=== PATIENT | male | born 1960 | race Caucasian/White ===

== ENCOUNTER 2017-01-27 11:17 | Inpatient (IN) ==
--- NOTE | 2017-01-27 12:31 | Emergency Department Note ---
Disposition Clinical Impression: Cellulitis in diabetic foot Disposition: Admitted As Inpatient Condition: Fair Referrals: NO,PCP [Non-Partnered Physician] - Forms: ED Satisfaction Letter Time of Disposition: 13:37 Lower Extremity Injury HPI - General Chief Complaint: ED Extremity Injury, Lower Stated Complaint: LLE "Infection" From Wound Care Time Seen by Provider: 01/27/17 12:17 Source: patient Limitations: no limitations Nursing Notes Reviewed: Yes Vital Signs Reviewed: Yes - History of Present Illness HPI Narrative: 56-year-old who is status post transmetatarsal amputation remotely who developed increasing redness and drainage from the foot patient is actually scheduled for surgery on Thursday. Saw the surgeon for preop testing today and he felt he should be admitted for IV antibiotics. Injury location: Left foot (Increasing redness and drainage) Onset (ago): day(s) Context: other (Status post amputation of the foot) Pain Severity: moderate Improves with: nothing Worsens with: movement Associated symptoms: Reports: able to partially bear weight - Related Data Home Medications Medication Instructions Recorded Confirmed Aspirin [Lo-Dose Aspirin EC] 81 mg PO QDPC 10/02/16 01/27/17 Gabapentin [Neurontin] 800 mg PO BID 10/02/16 01/27/17 Metformin HCl [Glucophage] 1,000 mg PO BID 10/02/16 01/27/17 Multivitamin [Multivitamins] 1 tab PO DAILY 12/24/16 01/27/17 Morphine Sulfate ER (24 HR) 30 mg PO DAILY 01/27/17 01/27/17 [Morphine Sulfate ER Caps] Oxycodone HCl 10 mg PO QID PRN 01/27/17 01/27/17 Allergies Allergy/AdvReac Type Severity Reaction Status Date / Time No Known Allergies Allergy Verified 01/27/17 11:21 All systems ED: reviewed and negative except as stated. Constitutional: Denies: fever, chills, weakness, weight change Eyes: Denies: eye pain, eye discharge, vision change ENT ED: Denies: ear pain, throat pain, dental pain, hearing loss, epistaxis, congestion, dysphagia Cardiovascular: Denies: chest pain, palpitations, dyspnea on exertion, edema, syncope Respiratory: Denies: cough, dyspnea, wheezes, hemoptysis, stridor Gastrointestinal: Denies: abdominal pain, nausea, vomiting, diarrhea, constipation, hematemesis, melena, hematochezia Genitourinary: Denies: urgency, dysuria, frequency, hematuria Musculoskeletal: Reports: arthralgia. Denies: back pain, neck pain, myalgia Integumentary: Denies: rash, abrasion, lesions Neurological: Denies: headache, weakness, numbness, paresthesias, confusion, abnormal gait, vertigo Psychiatric: Denies: anxiety, depression, suicidal thoughts, homicidal thoughts , auditory hallucinations, visual hallucinations Endocrine: Denies: fatigue Hematological/Lymphatic: Denies: easy bleeding, easy bruising Allergic/Immunologic: Denies: facial swelling, urticaria Past Medical History - Past Medical History Medical history: Reports: diabetes, hyperlipidemia, hypertension Surgical history: Reports: orthopedic, other Psychiatric history: Reports: no psych history - Social History Smoking Status: Current every day smoker Smokeless Tobacco Status: No Alcohol use: Reports: none Drug use: Reports: none Physical Exam - General Limitations: no limitations General appearance: alert - Head Head exam: atraumatic, normocephalic, normal inspection - Eye Eye exam: Present: normal appearance, PERRL, EOMI - ENT ENT exam: normal exam, normal oropharynx, mucous membranes moist - Neck Neck exam: Present: normal inspection, full ROM, trachea midline - Chest Chest inspection: Present: normal inspection, symmetric chest wall rise - Respiratory Respiratory exam: Present: normal lung sounds bilaterally - Abdominal Exam Abdominal exam: Present: soft, Non-Tender. Absent: tenderness, distention, guarding, rebound, rigidity - Expanded Lower Extremity Exam Foot/toe exam: Present: tenderness, swelling (Transmetatarsal amputation), erythema, other Neurovascular/Tendon exam: Absent: pulse deficit Gait: not tested/not observed - Back Exam Back exam: Present: normal inspection, full ROM. Absent: tenderness - Neurological Exam Neurological exam: Present: alert, oriented X3 - Psychiatric Psychiatric exam: Present: normal affect, normal mood - Skin Skin exam: Present: warm, dry, intact, normal color Course - Reevaluation(s) Reevaluation #1: 56-year-old with a previous transmetatarsal amputation comes in complaining of increasing foot pain and swelling with redness. Patient was seen by podiatry who felt he should be admitted for IV antibiotics and surgical debridement. Time: 14:31 - Consultations Consultation #1: Discussed with Dr. Tejada, admit to the hospitalist. Time: 13:58 Consultation #2: Discussed with , admit Time: 14:31 Vital Signs Temperature 98.3 F 01/27/17 11:21 Pulse Rate 110 01/27/17 11:21 Respiratory Rate 20 01/27/17 11:21 Blood Pressure 191/94 01/27/17 11:21 O2 Sat by Pulse Oximetry 95 01/27/17 11:21 Temperature 98.3 F 01/27/17 11:21 Pulse Rate 94 01/27/17 13:22 Respiratory Rate 16 01/27/17 13:22 Blood Pressure 133/85 01/27/17 13:22 O2 Sat by Pulse Oximetry 94 01/27/17 13:22 Oxygen Delivery Oxygen Delivery Room Air Extremity Injury, Lower - Lab Data Lab results reviewed: Yes I reviewed the patient's lab results. Result diagrams: 01/27/17 12:36 01/27/17 12:36 Lab Results 01/27/17 01/27/17 01/27/17 Range/Units 12:36 12:36 12:36 WBC 15.5 H (4.3-11.1) K/mcL RBC 4.10 L (4.19-5.50) M/mcL Hgb 12.8 L (12.9-16.9) g/dL Hct 37.5 (37.5-50.1) % MCV 91.5 (83.0-100.0) fL MCH 31.2 (28.0-33.3) pg MCHC 34.1 (31.6-35.5) g/dL RDW 12.9 (11.5-14.5) % Plt Count 166 (140-400) K/mcL MPV 9.8 (9.4-12.4) fL Immature Gran % 1.0 (0-4) % Seg Neutrophils % 85.0 % Lymphocytes % 5.5 % Monocytes % 7.4 % Eosinophils % 0.6 % Basophils % 0.5 % Neutrophils # 13.2 H (1.6-8.9) K/mcL Lymphocytes # 0.9 (0.6-4.6) K/mcL Monocytes # 1.2 (0.0-1.3) K/mcL Eosinophils # 0.1 (0.0-0.6) K/mcL Basophils # 0.1 (0.0-0.2) K/mcL ESR 100 H (0-10) mm/hr Sodium 127 L (136-145) mEq/L Potassium 4.6 H (3.5-4.5) mEq/L Chloride 98 (98-109) mEq/L Carbon Dioxide 20 (19-29) mEq/L BUN 19 (8-26) mg/dL Creatinine 1.28 H (0.72-1.25) mg/dL Est GFR ( Amer) > 60 (> 60) Est GFR (Non-Af Amer) 58 L (> 60) BUN/Creatinine Ratio 15 (6-26) Glucose 315 H (70-99) mg/dL Calculated Osmolality 278 L (280-300) Calcium 9.6 (8.6-10.8) mg/dL - Radiology Data Radiology results reviewed: Yes I reviewed the patient's radiology results. Foot X-Ray 01/27/17 12:28 IMPRESSION: Soft tissue swelling at the stump site may represent cellulitis. No underlying skeletal change to suggest osteomyelitis. D/ / Tripp Mcdonald MD / Tripp Mcdonald MD Interpreting Provider: Tripp Mcdonald MD
[2017-01-27 13:21] LABS: Basophils # 0.1 K/mcL (0.0-0.2); Basophils % 0.5 %; Eosinophils # 0.1 K/mcL (0.0-0.6); Eosinophils % 0.6 %; Hematocrit 37.5 % (37.5-50.1); Hemoglobin 12.8 g/dL (12.9-16.9); Lymphocytes # 0.9 K/mcL (0.6-4.6); Lymphocytes % 5.5 %; Mean Corpuscular HGB Conc 34.1 g/dL (31.6-35.5); Mean Corpuscular Hemoglobin 31.2 pg (28.0-33.3); Mean Corpuscular Volume 91.5 fL (83.0-100.0); Mean Platelet Volume 9.8 fL (9.4-12.4); Monocytes # 1.2 K/mcL (0.0-1.3); Monocytes % 7.4 %; Neutrophils # 13.2 K/mcL (1.6-8.9); Platelet Count 166 K/mcL (140-400); Red Cell Distribution Width 12.9 % (11.5-14.5)
[2017-01-27 13:25] LABS: BUN/Creatinine Ratio 15 (6-26); Blood Urea Nitrogen 19 mg/dL (8-26); Calcium 9.6 mg/dL (8.6-10.8); Carbon Dioxide 20 mEq/L (19-29); Chloride 98 mEq/L (98-109); Glucose 315 mg/dL (70-99); Osmolality,Calculated 278 (280-300); Potassium 4.6 mEq/L (3.5-4.5); Sodium 127 mEq/L (136-145); eGFR For African Americans > 60 (> 60); eGFR For Non-African Americans 58 (> 60)
[2017-01-27] MEDS ORDERED: Vancomycin 1,000 MG in D5% in Water 250 ML IVPB ONE (13:35)
[2017-01-27] MEDS ORDERED: Piperacillin/Tazobactam 3.375 GM in D5% in Water (Mini-Bag+) 100 ML IVPB ONE (14:30)
[2017-01-27] MEDS ORDERED: *HR* Morphine 2 MG/ML SYRINGE IVP PRN (15:29)
[2017-01-27] MEDS ORDERED: Acetaminophen 325 MG TABLET PO PRN (15:29)
[2017-01-27] MEDS ORDERED: Naloxone 0.4 MG/ML INJ IVP PRN (15:29)
[2017-01-27] MEDS ORDERED: Ondansetron ODT 4 MG TAB.RAPDIS SL PRN (15:29)
[2017-01-27] MEDS ORDERED: *HR* Dextrose 50 % in Water (Syg) 50 ML SYRINGE IVP PRN (15:55)
[2017-01-27] MEDS ORDERED: Dextrose Gel 15 GM PO PRN ×2 (15:55)
[2017-01-27] MEDS ORDERED: D5% in Water 1,000 ML IVC PRN (15:55)
[2017-01-27] MEDS: 0.9 % Sodium Chloride 1,000 ML IVC SCH (16:03)
[2017-01-27] MEDS: *HR* Heparin 5,000 UNIT/ML VIAL SQ SCH (16:03)
--- NOTE | 2017-01-27 16:09 | Internal Med History&Physical ---
Date of Encounter: 01/28/17 Time of Encounter: 16:04 Assessment and Plan (1) Sepsis Current visit: Yes Status: Acute Patient has cellulitis of the left lower extremity with diabetic foot ulcer, elevated white blood cell count of 15.5, mild tachycardia with heart rate in the 90s, meeting sepsis criteria. Blood cultures, and wound culture sent Broad-spectrum antibiotics initiated with vancomycin and Zosyn We will start IV fluids with 0.9 normal saline at 100 mL per hour Lactic acid ordered. Qualifiers: Sepsis type: sepsis due to unspecified organism Qualified Code(s): A41.9 - Sepsis, unspecified organism (2) Diabetic foot ulcer Current visit: Yes Status: Acute Patient with Cellulitis and unstageable ulcer of left foot stump with surrounding swelling, erythema and duskiness. Dr. Tejada consulted and plans to take patient to OR tomorrow for debridement. Wound cultures sent. Vancomycin and zosyn IVPB NPO after midnight for planned procedure. Qualifiers: Diabetic foot ulcer location: midfoot Diabetes mellitus type: type 2 Laterality: left Non-pressure ulcer stage: unspecified non-pressure ulcer stage Qualified Code(s): E11.621 - Type 2 diabetes mellitus with foot ulcer; L97.429 - Non-pressure chronic ulcer of left heel and midfoot with unspecified severity (3) Type 2 diabetes mellitus Current visit: Yes Status: Acute check Hgb A1c diabetic diet, NPO after midnight Hold home dose of metformin Sliding scale correction dose ACHS and Q6 hours when NPO after midnight for surgery hypoglycemic protocol. Qualifiers: Diabetes mellitus complication status: with skin complications Diabetes mellitus complication detail: with foot ulcer Diabetes mellitus termite control representative insulin use: without termite control representative use Qualified Code(s): E11.621 - Type 2 diabetes mellitus with foot ulcer; L97.509 - Non-pressure chronic ulcer of other part of unspecified foot with unspecified severity (4) Hypertension Current visit: Yes Status: Acute Patient reports he stopped taking his blood pressure medication 3 months ago, and his blood pressure has remained stable, and his PCP is aware of hime stopping his medication. Blood pressure has been controlled since arrival. Hydralazine 10mg IVP Q6hr PRN for SBP > 160 or DBP > 100 Qualifiers: Hypertension type: essential hypertension Qualified Code(s): I10 - Essential (primary) hypertension (5) Smoker Current visit: Yes Status: Acute Discussed smoking cessation. Patient is trying to quit and has cut down to 1/2 PPD. Offered encouragement. SMoking cessation education and nicotine patch ordered. (6) MONIKA (acute kidney injury) Current visit: Yes Status: Acute Creatinine of 1.28 up from baseline normal value. Patient denies any history of CKD. May be related to poor oral intake and nausea since Thursday. Urinalysis Hydrate with 0.9NS at 100mL/hr recheck chemistry with morning labs. (7) DVT prophylaxis Current visit: Yes Status: Acute Sequential compression devices Heparin 5,000u TID (hold evening and morning dose prior to surgery. Internal Medicine - H&P: HPI Chief complaint: foot wound Admitted From: Emergency Dept Plans for Post Hospital Care: Home History of present illness: Mr. Duran is a 56 year old male with hypertension, hyperlipidemia, and type 2 diabetes who is status post remote transmetatarsal amputation of the left foot presented to the emergency department today from the wound care clinic with reports of worsening swelling, pain, redness, and drainage from the wound on his left foot stump. Patient reported that he was scheduled for surgery later this week on with Dr. Oconnell wrapped on Thursday night. He reports his wrapped his foot on Thursday night, and prior to that his foot looks normal , he will commit overnight on Thursday with pain and had his rewrap the foot. On Thursday he reports he started having poor appetite, nausea, subjective fever and chills. When he presented to the wound care clinic today and they unwrapped his foot he reports it was much more swollen, and red than previously. Patient denies any headache, lightheadedness, chest pain, shortness of breath, palpitations. Evaluation in the emergency department revealed elevated white blood cell count of 15.5, elevated ESR of 100, hyponatremia with sodium of 127, creatinine was elevated at 1.28, blood sugar is also elevated at 3:15. Foot x-ray showed soft tissue swelling at some sight which may represent cellulitis, no underlying skeletal changes to suggest osteomyelitis. Blood cultures and wound cultures were sent. Dr. Tejada was consulted and plans to take the patient to the OR tomorrow. On exam, patient alert and oriented, in no acute distress. Heart has regular rate and rhythm, lungs are clear bilaterally to auscultation. Left lower extremity is status post transmetatarsal amputation, with lesser at the lateral plantar aspect measuring approximately 3 cm in diameter with surrounding erythema, and duskiness to the lateral dorsal aspect. The wound is draining serosanguineous and purulent material. Past Med Surg Social Fam HX - Past Medical History Medical history: diabetes, hyperlipidemia, hypertension Psychiatric history: no psych history - Past Surgical History Surgical History: orthopedic, other - Social History Smoking Status: Current every day smoker Packs per day: 0.5 Smokeless Tobacco Status: No Alcohol use: none Drug use: none - Family History Mother Living Status: Hx Family Cardiac Disorders: Yes Hx Family Endocrine Disorder: Yes Internal Medicine - H&P: Meds Aspirin [Lo-Dose Aspirin EC] 81 mg PO QDPC 10/02/16 [History] Gabapentin [Neurontin] 800 mg PO BID 10/02/16 [History] Metformin HCl [Glucophage] 1,000 mg PO BID 10/02/16 [History] Multivitamin [Multivitamins] 1 tab PO DAILY 12/24/16 [History] Morphine Sulfate ER (24 HR) [Morphine Sulfate ER Caps] 30 mg PO DAILY 01/27/17 [ History] Oxycodone HCl 10 mg PO QID PRN 01/27/17 [History] Allergies No Known Allergies Allergy (Verified 01/27/17 11:21) All Systems PM: A 10-system review of systems was performed and is negative for pertinent findings except as documented above in the HPI. - Constitutional Constitutional: anorexia, chills, fever(s) (subjective), no night sweats - EENT Eyes: no change in vision, no discharge, no pain, no photophobia Ears: no ear discharge, no ear pain, no tinnitus Nose, mouth and throat: no dysphagia, no nasal discharge, no neck pain, no sore throat - Cardiovascular Cardiovascular ROS IM: no chest pain, no diaphoresis, no dyspnea, no lightheadedness, no palpitations, no syncope - Respiratory Respiratory: no cough, no dyspnea, no wheezing, no excessive phlegm production - Gastrointestinal Gastrointestinal: nausea, no abdominal pain, no diarrhea, no hematemesis, no hematochezia, no melena, no vomiting - Musculoskeletal Musculoskeletal ROS IM: as per HPI, back pain (chronic), no numbness, no tingling - Integumentary Integumentary IM: non-healing lesions (left foot), no rash, no unusual bruising - Neurological Neurological ROS: no confusion, no convulsions, no focal weakness, no numbness, no tingling, no tremor(s) - Hematologic/Lymphatic Hematologic/Lymphatic: no easy bruising - Constitutional Vitals: Temp Pulse Resp BP Pulse Ox 98.7 F 87 16 148/83 96 01/27/17 15:20 01/27/17 15:20 01/27/17 15:20 01/27/17 15:20 01/27/17 15:20 General appearance: Present: A&O X 3, pleasant, no acute distress - Head Head exam: Present: atraumatic, normocephalic - Eye Eye exam: Present: PERRL, conjuntiva pink, sclera anicteric Pupils: Present: PERRL - Neck Neck exam general surgery: Present: supple, trachea midline. Absent: lymphadenopathy - Respiratory Respiratory exam: Present: CTAB. Absent: accessory muscle use, rales, rhonchi, wheezes - Cardiovascular Cardiovascular exam: Present: RRR, +S1, +S2. Absent: diastolic murmur, gallop, rubs, systolic murmur - GI/Abdominal GI/Abdominal exam: Present: normal bowel sounds, soft, no peritoneal signs. Absent: distended, tenderness - Extremities Exam Extremities exam: Present: pedal edema (LLE), tenderness (LLE), warm, radial pulses palpable and symetrical. Absent: calf tenderness, cyanotic - Expanded Lower Extremities Exam Foot/Toe exam: Present: erythema (left), swelling (left), tenderness (left) - Neurological Exam Neurological exam: Present: CN II-XII intact, oriented X3, no focal deficits. Absent: facial droop, speech deficit - Skin Skin exam: Present: dry Internal Med - H&P Results - Labs CBC & Chem 7: 01/27/17 12:36 01/27/17 12:36 Labs: All Lab Results (24 Hours) 01/27/17 01/27/17 01/27/17 Range/Units 12:36 12:36 12:36 WBC 15.5 H (4.3-11.1) K/mcL RBC 4.10 L (4.19-5.50) M/mcL Hgb 12.8 L (12.9-16.9) g/dL Hct 37.5 (37.5-50.1) % MCV 91.5 (83.0-100.0) fL MCH 31.2 (28.0-33.3) pg MCHC 34.1 (31.6-35.5) g/dL RDW 12.9 (11.5-14.5) % Plt Count 166 (140-400) K/mcL MPV 9.8 (9.4-12.4) fL Immature Gran % 1.0 (0-4) % Seg Neutrophils % 85.0 % Lymphocytes % 5.5 % Monocytes % 7.4 % Eosinophils % 0.6 % Basophils % 0.5 % Neutrophils # 13.2 H (1.6-8.9) K/mcL Lymphocytes # 0.9 (0.6-4.6) K/mcL Monocytes # 1.2 (0.0-1.3) K/mcL Eosinophils # 0.1 (0.0-0.6) K/mcL Basophils # 0.1 (0.0-0.2) K/mcL ESR 100 H (0-10) mm/hr Sodium 127 L (136-145) mEq/L Potassium 4.6 H (3.5-4.5) mEq/L Chloride 98 (98-109) mEq/L Carbon Dioxide 20 (19-29) mEq/L BUN 19 (8-26) mg/dL Creatinine 1.28 H (0.72-1.25) mg/dL Est GFR ( Amer) > 60 (> 60) Est GFR (Non-Af Amer) 58 L (> 60) BUN/Creatinine Ratio 15 (6-26) Glucose 315 H (70-99) mg/dL Calculated Osmolality 278 L (280-300) Calcium 9.6 (8.6-10.8) mg/dL - Diagnostic Studies Other Images Additional comments: Foot X-Ray 01/27/17 12:28 IMPRESSION: Soft tissue swelling at the stump site may represent cellulitis. No underlying skeletal change to suggest osteomyelitis. D/ / Tripp Mcdonald MD / Tripp Mcdonald MD Interpreting Provider: Tripp Mcdonald MD
[2017-01-27] MEDS ORDERED: Insulin LISPRO 300 UNITS/3 ML VIAL SQ SCH (16:30)
[2017-01-27 16:32] LABS: Hemoglobin A1C 7.5 %
--- NOTE | 2017-01-27 16:35 | Podiatry Consult Note ---
Date of Encounter: 01/27/17 Time of Encounter: 16:15 Assessment and Plan (1) Diabetic foot ulcer Current visit: Yes Status: Acute Qualifiers: Diabetic foot ulcer location: midfoot Diabetes mellitus type: type 2 Laterality: left Non-pressure ulcer stage: unspecified non-pressure ulcer stage Qualified Code(s): E11.621 - Type 2 diabetes mellitus with foot ulcer; L97.429 - Non-pressure chronic ulcer of left heel and midfoot with unspecified severity (2) Cellulitis in diabetic foot Current visit: Yes Status: Acute Cellulitis of left foot secondary to diabetic foot ulcer. Wound cultures and blood cultures obtained in the ED and pending. Patient started on Zosyn and vancomycin IV. WBC: 15.5, Temp: 98.7 ESR: 100 ABIs ordered and pending. Vascular consulted and spoke with Dr. Lewis. Patient will be evaluated tomorrow morning. Dr. Tejada to plan on taking patient to surgery on 01/29/2017 for an I&D of the left foot. Wound care to include cleansing left foot daily with saline, pat dry, apply dry sterile 4 x 4 gauze with Kerlix. (3) Smoker Current visit: Yes Status: Acute History of Present Illness HPI: Mr. Duran is a 56 year old male admitted to [place] for cellulitis of the left foot. Patient was seen in wound care by Dr. Tejada on 01/21/2017 and underwent a bedside debridement of the left foot. Patient was scheduled for surgery this for a resection of osteophytes at the fourth metatarsal with Dr. Tejada. Patient was evaluated in PAT and sent to the ED today due to redness and swelling. Patient states he has had increased redness, swelling, and drainage of the left foot over the past three days. Patient had a left TMA approximately six years ago. Patient does have a medical history significant for diabetes, hyperlipidemia, hypertension. 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 Past Med Surg Social Fam HX - Past Medical History Medical history: diabetes, hyperlipidemia, hypertension Psychiatric history: no psych history - Past Surgical History Surgical History: orthopedic, other - Social History Smoking Status: Current every day smoker Packs per day: 0.5 Smokeless Tobacco Status: No Alcohol use: none Drug use: none - Family History Mother Living Status: Hx Family Cardiac Disorders: Yes Hx Family Endocrine Disorder: Yes Medications and Allergies Aspirin [Lo-Dose Aspirin EC] 81 mg PO QDPC 10/02/16 [History] Gabapentin [Neurontin] 800 mg PO BID 10/02/16 [History] Metformin HCl [Glucophage] 1,000 mg PO BID 10/02/16 [History] Multivitamin [Multivitamins] 1 tab PO DAILY 12/24/16 [History] Morphine Sulfate ER (24 HR) [Morphine Sulfate ER Caps] 30 mg PO DAILY 01/27/17 [ History] Oxycodone HCl 10 mg PO QID PRN 01/27/17 [History] Allergies No Known Allergies Allergy (Verified 01/27/17 11:21) All Systems Reviewed: A 10-system review of systems was performed and is negative for pertinent findings except as documented above in the HPI. Physical Exam - Constitutional Vitals: Temp Pulse Resp BP Pulse Ox 98.7 F 87 16 148/83 96 01/27/17 15:20 01/27/17 15:20 01/27/17 15:20 01/27/17 15:20 01/27/17 15:20 Exam: General appearance: alert awake oriented X 3. Calm and pleasant, no acute distress.. Vascular: Pedal pulses +2/4 DP/PT , Edema graded at 2+/4 left. Skin Temperature warm, No calf pain with manual compression. capillary refill time is immediate to digits. Integument: History of left TMA. Left foot is globally erythematous and edematous with serous drainage. Partial-thickness ulceration to the fifth metatarsal measuring 2 cm in diameter, base of ulcer is beefy red. Dusky discoloration to the dorsal aspect of the left foot at the 4th metatarsal. Results - Labs Result Diagrams: 01/27/17 12:36 01/27/17 12:36 Labs: Abnormal lab results WBC 15.5 K/mcL (4.3-11.1) H 01/27/17 12:36 RBC 4.10 M/mcL (4.19-5.50) L 01/27/17 12:36 Hgb 12.8 g/dL (12.9-16.9) L 01/27/17 12:36 Neutrophils # 13.2 K/mcL (1.6-8.9) H 01/27/17 12:36 ESR 100 mm/hr (0-10) H 01/27/17 12:36 Sodium 127 mEq/L (136-145) L 01/27/17 12:36 Potassium 4.6 mEq/L (3.5-4.5) H 01/27/17 12:36 Creatinine 1.28 mg/dL (0.72-1.25) H 01/27/17 12:36 Est GFR (Non-Af Amer) 58 (> 60) L 01/27/17 12:36 Glucose 315 mg/dL (70-99) H 01/27/17 12:36 Calculated Osmolality 278 (280-300) L 01/27/17 12:36 All other labs normal. Consult Discharge Plan - Plan Referrals: Sebastián Sam MD [Primary Care Provider] -
[2017-01-27] MEDS: Nicotine 14 MG PATCH.TD24 TD SCH (17:32)
[2017-01-27] MEDS: Gabapentin 400 MG CAPSULE PO SCH (19:58)
[2017-01-27] MEDS: Vancomycin 1,750 MG in D5% in Water 500 ML IVPB SCH (19:58)
[2017-01-27] MEDS: Insulin LISPRO 300 UNITS/3 ML VIAL SQ SCH (19:59)
[2017-01-27 20:29] LABS: Bilirubin,Urine Small (Negative); Blood,Urine Negative (Negative); Clarity,Urine Clear (Clear); Color,Urine Dark Yellow (Yellow); Glucose,Urine (UA) 500 mg/dL (Normal); Ketones,Urine Negative (Negative); Leukocyte Esterase,Urine Negative (Negative); Nitrite,Urine Negative (Negative); Protein,Urine 30 mg/dL (Neg-Trace); Specific Gravity,Urine > 1.030 (1.010-1.025); Urobilinogen,Urine Normal (Normal)
[2017-01-27 20:31] LABS: Bacteria,Urine None Seen per hpf (None-Few); Hyaline Casts,Urine None Seen per lpf (None-Few); Squamous Epithelial Cell,Urine Few per lpf (None-Few); WBC,Urine 0-3 per hpf (0-3)
[2017-01-27] MEDS: Piperacillin/Tazobactam 3.375 GM in D5% in Water (Mini-Bag+) 100 ML IVPB SCH (23:59)
[2017-01-28] MEDS: Insulin LISPRO 300 UNITS/3 ML VIAL SQ SCH ×5 (00:04→21:28)
[2017-01-28] MEDS: 0.9 % Sodium Chloride 1,000 ML IVC SCH ×2 (06:07→17:18)
[2017-01-28 06:42] LABS: Basophils # 0.1 K/mcL (0.0-0.2); Basophils % 0.6 %; Eosinophils # 0.5 K/mcL (0.0-0.6); Eosinophils % 4.9 %; Hematocrit 31.8 % (37.5-50.1); Immature Granulocytes % 0.5 % (0-4); Lymphocytes % 10.2 %; Mean Corpuscular HGB Conc 34.6 g/dL (31.6-35.5); Mean Corpuscular Hemoglobin 31.5 pg (28.0-33.3); Mean Corpuscular Volume 91.1 fL (83.0-100.0); Mean Platelet Volume 9.2 fL (9.4-12.4); Monocytes # 0.8 K/mcL (0.0-1.3); Monocytes % 8.6 %; Platelet Count 146 K/mcL (140-400); Red Blood Count 3.49 M/mcL (4.19-5.50); Red Cell Distribution Width 12.8 % (11.5-14.5); Segmented Neutrophils % 75.2 %
[2017-01-28 06:53] LABS: BUN/Creatinine Ratio 13 (6-26); Blood Urea Nitrogen 14 mg/dL (8-26); Calcium 8.7 mg/dL (8.6-10.8); Carbon Dioxide 22 mEq/L (19-29); Chloride 100 mEq/L (98-109); Glucose 184 mg/dL (70-99); Osmolality,Calculated 271 (280-300); Potassium 4.1 mEq/L (3.5-4.5); Sodium 128 mEq/L (136-145); eGFR For African Americans > 60 (> 60); eGFR For Non-African Americans > 60 (> 60)
[2017-01-28] MEDS: Piperacillin/Tazobactam 3.375 GM in D5% in Water (Mini-Bag+) 100 ML IVPB SCH ×2 (08:07→17:19)
[2017-01-28] MEDS: Vancomycin 1,750 MG in D5% in Water 500 ML IVPB SCH ×2 (08:07→22:58)
[2017-01-28] MEDS: Gabapentin 400 MG CAPSULE PO SCH ×2 (08:08→21:28)
[2017-01-28] MEDS: Multivit/Ca/Min/Fe/FA 1 TAB TABLET PO SCH (08:08)
[2017-01-28] MEDS: Nicotine 14 MG PATCH.TD24 TD SCH (08:08)
[2017-01-28] MEDS ORDERED: MORPHINE SULFATE 30 MG PO SCH (09:00)
[2017-01-28] MEDS: *HR* Morphine Sulfate SR (12 HR) 30 MG TABLET.ER PO SCH (09:18)
[2017-01-28] MEDS: *HR* OxyCODONE Immed Rel 5 MG TABLET PO PRN ×2 (11:49→18:08)
--- NOTE | 2017-01-28 12:43 | Arterial Study Report ---
LE Arterial Physiologic Study Patient Name:Rodri Duran Order Number:[id number] Procedure Date:01/27/2017 Date:1960ge:56 yrs Gender:Male Lt BP:140 / mmHg Rt.BP:135 / mmHgHeart Rate: Location:[facility] Room #: [facility] [employer] Brusher:ROSALINDA MaravillaT, [facility] Referring MD:Tony Theodore MD wireless store manager:Sebastián Sam MD Reading MD:Yang Matias MD Primary Indications:ulcer left foot Risk Factors Yes/No Diabetes Yes Anticoagulants Yes Hypertension No Hypercholesterolemia No Smoking Current Yes Impressions: The bilateral lower extremities are hemodynamically well maintained. The right NATHANIEL and waveform are normal. Right NATHANIEL: 1.14. The left NATHANIEL and waveform are normal. Leftt NATHANIEL: 1.06. Findings LE Arterial Physiologic Exam: Segmental Pressures: Right: The right posterior tibial pressure is 159 mmHg with an index of 1.14. The right dorsalis pedis pressure is 154 mmHg with an index of 1.1. Left: The left posterior tibial pressure is 141 mmHg with an index of 1.01. The left dorsalis pedis pressure is 148 mmHg with an index of 1.06. PVR: Right: The PVR waveforms are normal in the right ankle. Left: The PVR waveforms are normal in the left ankle. Segmental Pressures Side Location Pressure Index Result Right Posterior Tibial 159 1.14 Right Dorsalis Pedis 154 1.10 Left Posterior Tibial 141 1.01 Left Dorsalis Pedis 148 1.06 Ankle Brachial Index Right Systolic Diastolic NATHANIEL Brachial 135 1.14 Dorsalis Pedis 154 1.10 Posterior Tibial 159 1.14 Left Systolic Diastolic NATHANIEL Brachial 140 1.06 Dorsalis Pedis 148 1.06 Posterior Tibial 141 1.01 Updated by Yang Matias MD on 01/28/2017 12:37:23 PM with Status of Final electronically signed on 01/28/2017 12:37:47 PM with status of Final
--- NOTE | 2017-01-28 13:18 | Podiatry Progress Note ---
Date of Encounter: 01/28/17 Time of Encounter: 12:00 - Assessment and Plan (1) Diabetic foot ulcer Current Visit: Yes Status: Acute Qualifiers: Qualified Code(s): E11.621 - Type 2 diabetes mellitus with foot ulcer; L97.429 - Non-pressure chronic ulcer of left heel and midfoot with unspecified severity (2) Cellulitis in diabetic foot Current Visit: Yes Status: Acute Cellulitis of left foot secondary to diabetic foot ulcer. Blood Cultures pending. Wound Cultures: Prelim: GNR, GPC Patient started on Zosyn and vancomycin IV. WBC: 13.2 ABIs: right: 1.14, left: 1.[address] Tejada to plan on taking patient to surgery on 01/29/2017 for an I&D of the left foot. Will make NPO at midnight. Wound care to include cleansing left foot daily with saline, pat dry, apply adaptic dry sterile 4 x 4 gauze with Kerlix BID. (3) Smoker Current Visit: Yes Status: Acute Subjective Interval history: Patient is sitting up in bed with spouse at bedside. Dressing intact to left foot with moderate drainage to the dressing. Patient states he is feeling better today. Patient is upset and stated all of his food and drinks were taken away from him last night at Midnight. He states they were telling him that the surgery on his left foot was scheduled for today. He states the morning shift nurse called Dr. Tejada this verify his surgery date. Patient is scheduled for I&D of the left tomorrow 01/29/17. Patient was provided with a breakfast tray after he was taken off NPO. No c/o fever, chills, cp, sob or flu like symptoms. Objective - Vital Signs Vital Signs: Vital Signs Temp Pulse Resp BP Pulse Ox 01/28/17 11:34 98.6 F 75 17 123/73 96 01/28/17 06:59 98.5 F 81 17 127/74 95 01/28/17 03:58 98.5 F 83 18 133/76 96 01/28/17 00:12 99.3 F 81 19 135/75 96 01/27/17 20:22 99.8 F H 84 17 138/73 96 Intake and Output 01/27/17 01/28/17 01/28/17 23:59 07:59 15:59 Intake Total 700 / 700 1100 / 1100 600 / 600 Output Total 400 / 400 995 / 995 Balance 300 / 300 1100 / 1100 -395 / -395 Intake: IV Fluids 600 / 600 1100 / 1100 600 / 600 0.9 % Sodium Chloride 1, 1000 / 1000 000 ML @ 100 mls/hr IVC . Q10H [facility] Rx#:[id number] Zosyn 3.375 GM In 100 / 100 100 / 100 100 / 100 Dextrose 5% (Minibag+) 100 ML 100 ML @ 25 mls/hr IVPB Q8H [facility] Rx#: [id number] Vancocin 1,750 MG In 500 / 500 500 / 500 Dextrose 5% 500 ML @ 334. 014 mls/hr IVPB Q12H [facility] Rx#:[id number] Oral 100 / 100 Output: Urine 400 / 400 995 / 995 Other: Meal Dinner refused Percent of Meal Consumed 100% 0% Weight 114.1 kg Blood Glucose* 255 172 293 Patient Weight 01/28/17 23:59 Weight 114.1 kg - Exam Exam: General appearance: alert awake oriented X 3. Calm and pleasant, no acute distress.. Vascular: Pedal pulses +2/4 DP/PT , Edema graded at 2+/4 left. Skin Temperature warm, No calf pain with manual compression. capillary refill time is immediate to digits. Integument: History of left TMA. Left foot is globally erythematous and edematous with serous drainage. Partial-thickness ulceration to the fifth metatarsal measuring 2 cm in diameter, base of ulcer is beefy red. Peeling skin to the dorsal aspect. Moderate amount of serous drainage observed to dressing. - Lab Result Diagrams: 01/28/17 06:18 01/28/17 06:18 Labs: Abnormal lab results RBC 3.49 M/mcL (4.19-5.50) L 01/28/17 06:18 Hgb 11.0 g/dL (12.9-16.9) L D 01/28/17 06:18 Hct 31.8 % (37.5-50.1) L 01/28/17 06:18 MPV 9.2 fL (9.4-12.4) L 01/28/17 06:18 ESR 100 mm/hr (0-10) H 01/27/17 12:36 Sodium 128 mEq/L (136-145) L 01/28/17 06:18 Glucose 184 mg/dL (70-99) H 01/28/17 06:18 POC Glucose 215 (58-89) H 01/28/17 00:00 Hemoglobin A1c 7.5 % (-5.6) H 01/27/17 16:00 Calculated Osmolality 271 (280-300) L 01/28/17 06:18 Ur Specific [place] > 1.030 (1.010-1.025) H 01/27/17 20:15 Urine Protein 30 mg/dL (Neg-Trace) H 01/27/17 20:15 Urine Glucose (UA) 500 mg/dL (Normal) H 01/27/17 20:15 Urine Bilirubin Small (Negative) H 01/27/17 20:15 Urine Microscopic RBC 3-5 per hpf (0-3) H 01/27/17 20:15 - VTE Documentation of Mechanical Device: Intermittent pneumatic compression device Consult Discharge Plan - Plan Referrals: Sebastián Sam MD [Primary Care Provider] -
--- NOTE | 2017-01-28 16:58 | Internal Med Progress Note ---
Date of Encounter: 01/28/17 Time of Encounter: 16:55 - Assessment and plan (1) Sepsis Current Visit: Yes Status: Acute Assessment and plan: due to left foot ulcer and cellulitis Improving cont broad spec abx wound cx shwoing G-ve rods and G+ve cocci Qualifiers: Sepsis type: sepsis due to unspecified organism Qualified Code(s): A41.9 - Sepsis, unspecified organism (2) Diabetic foot ulcer Current Visit: Yes Status: Acute Assessment and plan: on ISS ACHS Qualifiers: Diabetic foot ulcer location: midfoot Diabetes mellitus type: type 2 Laterality: left Non-pressure ulcer stage: unspecified non-pressure ulcer stage Qualified Code(s): E11.621 - Type 2 diabetes mellitus with foot ulcer; L97.429 - Non-pressure chronic ulcer of left heel and midfoot with unspecified severity (3) Cellulitis in diabetic foot Current Visit: Yes Status: Acute Assessment and plan: Scheudled for debridement in AM cont broad spec abx Zosyn and Vanco his wound cx growing G-ve rods and G+ve cocci cont IV pain meds PRN NPO after mid night (4) Hypertension Current Visit: Yes Status: Acute Assessment and plan: BP stable with no meds cont close monitoring Qualifiers: Hypertension type: essential hypertension Qualified Code(s): I10 - Essential (primary) hypertension (5) Smoker Current Visit: Yes Status: Acute Assessment and plan: Counseled to quit placed on nicotine patches (6) MONIKA (acute kidney injury) Current Visit: Yes Status: Acute Assessment and plan: due to sepsis and dehydration resolved cont gentle hydration (7) DVT prophylaxis Current Visit: Yes Status: Acute Assessment and plan: on SQ Heparin - Subjective Interval history: Patient is a 56-year-old male with history of diabetes, who presented with left foot infection. 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 He went to his regular wound care appointment and after removing his brace, he was noted to have significant worsening of the growth with surrounding swelling, redness and some bloody discharge from the wound, and was referred to the ER. Pt was seen by specimen collector today and scheduled him for surgery in AM. Pt denied any CP / SOB. Pain is tolerable with meds - Constitutional Vitals: Temp Pulse Resp BP Pulse Ox 97.5 F L 88 16 150/83 98 01/28/17 15:36 01/28/17 15:36 01/28/17 15:36 01/28/17 15:36 01/28/17 15:36 General appearance: Present: A&O X 3, pleasant, no acute distress - Respiratory Respiratory exam: Present: CTAB. Absent: accessory muscle use, rales, rhonchi, wheezes - Cardiovascular Cardiovascular exam: Present: RRR, +S1, +S2. Absent: diastolic murmur, gallop, rubs, systolic murmur - Extremities Exam Extremities exam: Present: pedal edema, tenderness, warm. Absent: calf tenderness Additional comments: Swelling and erythema over left leg and foot. warm to touch Internal Medicine: Result - Labs CBC & Chem 7: 01/28/17 06:18 01/28/17 06:18 Labs: Short CBC 01/28/17 Range/Units 06:18 WBC 9.3 (4.3-11.1) K/mcL Hgb 11.0 L D (12.9-16.9) g/dL Hct 31.8 L (37.5-50.1) % Plt Count 146 (140-400) K/mcL Neutrophils # 7.0 (1.6-8.9) K/mcL BMP 01/28/17 06:18 Sodium 128 L Potassium 4.1 Chloride 100 Carbon Dioxide 22 BUN 14 Creatinine 1.06 Glucose 184 H Calcium 8.7 Urine 01/27/17 Range/Units 20:15 Urine Color Dark Yellow (Yellow) Urine Clarity Clear (Clear) Urine pH 6.0 (5.0-8.0) pH Units Ur Specific [place] > 1.030 H (1.010-1.025) Urine Protein 30 H (Neg-Trace) mg/dL Urine Glucose (UA) 500 H (Normal) mg/dL - VTE Documentation of Mechanical Device: Intermittent pneumatic compression device Consult Discharge Plan - Plan Referrals: Sebasitán Sam MD [Primary Care Provider] -
[2017-01-28] MEDS: *HR* Heparin 5,000 UNIT/ML VIAL SQ SCH (17:18)
--- NOTE | 2017-01-28 18:31 | Vascular/Endovasc Consult Note ---
Date of Encounter: 01/28/17 Time of Encounter: 17:30 Assessment and Plan (1) Peripheral vascular disease of lower extremity with ulceration Status: Chronic The pathophysiology and natural history of peripheral vascular disease was discussed with the patient and all questions were answered. The patient has a nohealing left foot ulcer with surrounding cellulitis and necrosis. His ABIs and waveforms are normal bilaterally. He has palpable pedal pulses. Despite this, he has progressive ulceration of the foot. At this time, he is scheduled for debridement of his foot by Dr. Tejada tomorrow. The patient reports some degree of frustration with the decline of his foot. He also reports that he has a foot drop. He was advised to discuss his likelihood of wound healing with Dr. Tejada after his debridement. He states that he has considered amputation in the past. He was advised to follow Dr. Tejada's advice. He will need to continue with daily ASA. He may follow-up with vascular surgery as needed. (2) Cellulitis in diabetic foot Status: Acute Continue antibiotic therapy. The patient has been scheduled for debridement tomorrow with Dr. Tejada. (3) Type 2 diabetes mellitus Status: Chronic Qualifiers: Diabetes mellitus complication status: with skin complications Diabetes mellitus complication detail: with foot ulcer Diabetes mellitus custodial insulin use: without intermediate teacher use Qualified Code(s): E11.621 - Type 2 diabetes mellitus with foot ulcer; L97.509 - Non-pressure chronic ulcer of other part of unspecified foot with unspecified severity (4) Hypertension Status: Chronic The patient was counseled regarding atherosclerotic risk factor reduction. Qualifiers: Hypertension type: essential hypertension Qualified Code(s): I10 - Essential (primary) hypertension (5) Smoker Status: Chronic He was counseled regarding smokign cessation and informed that continued smoking will likely lead to the progression of atherosclerosis and it's associated complications including heart attack, stroke, limb loss, organ failrue and/or . - History of Present Illness Consult date: 01/28/17 Requesting physician: Tony Theodore Consult reason: Peripheral vascular disease with ulceration Chief complaint: Left foot ulcer History of present illness: Mr. Duran is a 56 year old male with a long history of diabetes, hypertension, hyperlipidemia and foot ulceration. The patient reports that several years ago he developed left toe gangrene and ultimately required a transmetarsal amputation. The patient reprots a chronic left foot drop and left foot neuropathy. During the last few weeks he reports that he developed a callous on the plantar surface of his left foot. The callous was excised. He then developed a left foot infection with progressive cellulitis. The patient was admitted from the wound center for intravenous antibiotic therapy and wound debridement. Given josé manuel extent of his ulceration, vascular surgery was consulted for further evaluation. The patient denies any claudication or rest pain. He denies chest pain or shortness of breath. Past Med Surg Social Fam HX - Past Medical History Medical history: diabetes, hyperlipidemia, hypertension Psychiatric history: no psych history - Past Surgical History Surgical History: orthopedic, other - Social History Smoking Status: Current every day smoker Packs per day: 0.5 Smokeless Tobacco Status: No Alcohol use: none Drug use: none - Family History Mother Living Status: Hx Family Cardiac Disorders: Yes Hx Family Endocrine Disorder: Yes Medications and Allergies Aspirin [Lo-Dose Aspirin EC] 81 mg PO QDPC 10/02/16 [History] Gabapentin [Neurontin] 800 mg PO BID 10/02/16 [History] Metformin HCl [Glucophage] 1,000 mg PO BID 10/02/16 [History] Multivitamin [Multivitamins] 1 tab PO DAILY 12/24/16 [History] Oxycodone HCl 10 mg PO QID PRN 01/27/17 [History] Morphine Sulfate SR (12 HR) [MS Contin] 30 mg PO DAILY 01/28/17 [History] Nicotine Patch [Nicoderm] 14 mg TD DAILY #28 01/30/17 [Rx] cefTRIAXone [Rocephin] 2,000 mg IVPB DAILY #30 vial 01/30/17 [Rx] levoFLOXacin [Levaquin] 750 mg PO DAILY #30 tablet 01/30/17 [Rx] Allergies No Known Allergies Allergy (Verified 01/27/17 11:21) All Systems Review: A 10-system review of systems was performed and is negative for pertinent findings except as documented above in the HPI. - Constitutional Constitutional: chills, fever(s) - Cardiovascular Cardiovascular: no chest pain at rest, no chest pain with exertion, no dyspnea at rest, no dyspnea on exertion - Vascular Vascular: lower extremity ulcers, lower extremity discoloration Exam Vital Signs, Last 4 Hours Temp Pulse Resp BP Pulse Ox 01/28/17 15:36 97.5 F L 88 16 150/83 98 General: Present: Conversant, No Apparent Distress HEENT: Present: Atraumatic, Trachea midline, Pupils equal Neck: Absent: JVD, Lymphadenopathy, Left Carotid bruit, Right Carotid bruit Cardiac: Present: Reg Rate and Rhythm, Normal S1 and S2 Lungs: Present: Normal Breath Sounds, No Wheeze, Rales, Rhonchi Neuro: Present: Alert and responsive, No focal deficits noted, Motor nerves grossly intact, Sensory nerves grossly intact Abdomen: Present: Soft, Non-tender. Absent: Masses Vascular: Present: Normal capillary refill, Pulse, normal (pedal pulses are palpable bilaterally, polyphasic signals are noted). Absent: Cyanosis Skin: Present: Wound/ulcer(s) (Left plantar foot ulcer with foul odor, suropurulent draiange and necrotic tissue, erytema extends to dorsal foot, no crepitus) Consult Discharge Plan - Plan Additional Instructions: Left foot Type of Dressing/Treatments w/Frequency: #1 wound VAC 125 mmHg black foam low vacuum continuous #2 place calcium alginate over incision line and the distal aspect of the foot prior to placement of wound VAC #3 ambulate with knee roller at all times. #4 follow-up with Dr. Tejada of wound care clinic within 2 weeks of discharge Following services are medically necessary services: Nursing, Home Infusion Home Care Orders: #1 cleanse left foot with soap and water prior to dressing change/wound VAC Thursday. Again please place calcium alginate with Silver over incision line and the distal aspect of the foot prior to placing wound VAC. Incorporate into dressing. Other Treatments: Recommend CBC ESR creatinine weekly Activity Orders: Ambulate (With the knee roller only do not place any weight on left foot) Referrals: Hortencia Kowalski CNP [Advanced Practice Nurse] - 02/16/17 8:30 am Sebastián Sam MD [Primary Care Provider] - Prescriptions: cefTRIAXone [Rocephin] 2,000 mg IVPB DAILY #30 vial levoFLOXacin [Levaquin] 750 mg PO DAILY #30 tablet Nicotine Patch [Nicoderm] 14 mg TD DAILY #28
[2017-01-28] MEDS ORDERED: *HR* LORazepam 0.5 MG TABLET PO PRN (18:37)
[2017-01-29] MEDS: *HR* OxyCODONE Immed Rel 5 MG TABLET PO PRN ×3 (00:14→20:00)
[2017-01-29] MEDS: Piperacillin/Tazobactam 3.375 GM in D5% in Water (Mini-Bag+) 100 ML IVPB SCH ×3 (00:15→17:17)
[2017-01-29] MEDS: *HR* Heparin 5,000 UNIT/ML VIAL SQ SCH ×3 (00:16→17:17)
[2017-01-29 06:12] LABS: Basophils # 0.1 K/mcL (0.0-0.2); Basophils % 0.8 %; Eosinophils # 0.4 K/mcL (0.0-0.6); Eosinophils % 5.1 %; Hematocrit 30.8 % (37.5-50.1); Hemoglobin 10.4 g/dL (12.9-16.9); Immature Granulocytes % 0.4 % (0-4); Lymphocytes # 1.2 K/mcL (0.6-4.6); Mean Corpuscular HGB Conc 33.8 g/dL (31.6-35.5); Mean Corpuscular Hemoglobin 30.9 pg (28.0-33.3); Mean Corpuscular Volume 91.4 fL (83.0-100.0); Mean Platelet Volume 9.6 fL (9.4-12.4); Monocytes # 0.8 K/mcL (0.0-1.3); Monocytes % 10.5 %; Platelet Count 162 K/mcL (140-400); Red Blood Count 3.37 M/mcL (4.19-5.50); Red Cell Distribution Width 12.8 % (11.5-14.5); Segmented Neutrophils % 67.2 %
[2017-01-29 06:48] LABS: BUN/Creatinine Ratio 13 (6-26); Blood Urea Nitrogen 14 mg/dL (8-26); Calcium 8.8 mg/dL (8.6-10.8); Carbon Dioxide 21 mEq/L (19-29); Chloride 103 mEq/L (98-109); Glucose 146 mg/dL (70-99); Osmolality,Calculated 271 (280-300); Potassium 3.8 mEq/L (3.5-4.5); Sodium 129 mEq/L (136-145); eGFR For African Americans > 60 (> 60); eGFR For Non-African Americans > 60 (> 60)
[2017-01-29] MEDS ORDERED: Bupivacaine/Clonidine Syringe 1 EACH SYRINGE ONE (07:09)
--- NOTE | 2017-01-29 07:46 | Anesthesia Evaluation PreOp ---
Date of Encounter: 01/29/17 Time of Encounter: 07:44 - Past History Planned Operation: Osteotomy Left Metatarsal 4 and 5 Cardiac History: HTN Pulmonary History: Smoker Other Medical History: Diabetes Type II (Diabetic foot ulcer) Anesthesia History: No Prior Anesthetic Complications Alcohol Use: none Drug use: none Medications and Allergies Aspirin [Lo-Dose Aspirin EC] 81 mg PO QDPC 10/02/16 [History] Gabapentin [Neurontin] 800 mg PO BID 10/02/16 [History] Metformin HCl [Glucophage] 1,000 mg PO BID 10/02/16 [History] Multivitamin [Multivitamins] 1 tab PO DAILY 12/24/16 [History] Oxycodone HCl 10 mg PO QID PRN 01/27/17 [History] Morphine Sulfate SR (12 HR) [MS Contin] 30 mg PO DAILY 01/28/17 [History] Allergies No Known Allergies Allergy (Verified 01/27/17 11:21) - Meds/Allergy Pre-op Review Medications Reviewed: Yes Allergies Reviewed: Yes Anesthesia Results - Labs 01/29/17 04:16 01/29/17 04:16 - Imaging EKG: image reviewed (ST) Anesthesia Exam O2 Sat O2 Sat by Pulse Oximetry 94 O2 Sat by Pulse Oximetry 97 O2 Sat by Pulse Oximetry 96 O2 Sat by Pulse Oximetry 98 O2 Sat by Pulse Oximetry 96 Vital Signs Temp Pulse Resp BP Pulse Ox 98.3 F 110 20 191/94 95 01/27/17 11:21 01/27/17 11:21 01/27/17 11:21 01/27/17 11:21 01/27/17 11:21 Blood glucose: 146 Height: 6' Weight: 251# NPO (# of Hours): > 8hrs Pain Scale: 0 Pain Scale Used: Numeric (1 - 10) - HEENT Pupil (Motor): Pupils equal, EOMI Mallampati: II Teeth: Normal Oral Opening: Greater than 3 - TRAFFIC SUPERINTENDENT LOC: Oriented TRAFFIC SUPERINTENDENT Motor: Normal RUE, Normal LUE, Normal RLE, Normal LLE, Normal Face TRAFFIC SUPERINTENDENT Sensory: Normal: RUE, LUE, RLE, LLE, Face - Cardiac Rhythm: Regular Murmur: None JVD: No Carotid Bruit: No - Pulmonary Breath Sounds: bilateral Clear Respiratory Effort: Symmetrical Anesthesia Assess/Plan ASA Score: 3 Modified Drake Scale for Level of Consciousness: Cooperative, oriented, and tranquil Anesthetic Plan: MAC Autologous Blood: Yes Monitoring Plan: Standard Monitors Recovery Plan: Other
[2017-01-29] MEDS: Insulin LISPRO 300 UNITS/3 ML VIAL SQ SCH ×4 (07:55→21:31)
[2017-01-29] MEDS: Nicotine 14 MG PATCH.TD24 TD SCH (07:56)
[2017-01-29] MEDS: *HR* Morphine Sulfate SR (12 HR) 30 MG TABLET.ER PO SCH (07:56)
[2017-01-29] MEDS: Multivit/Ca/Min/Fe/FA 1 TAB TABLET PO SCH (07:56)
[2017-01-29] MEDS: Gabapentin 400 MG CAPSULE PO SCH ×2 (07:56→20:28)
[2017-01-29] MEDS: Vancomycin 1,750 MG in D5% in Water 500 ML IVPB SCH ×2 (07:57→11:43)
--- NOTE | 2017-01-29 09:31 | Orthopedic Operative Note ---
Date of procedure: 01/29/17 Pre-op diagnosis: Diabetic foot infection abscess necrosis left foot Post-op diagnosis: same Procedure: 01/29/17 09:27 #1 incision and drainage multiple areas left foot #2 ostectomy fourth metatarsal #3 application of wound VAC Implants: None Complications: None Anesthesia: MAC, local Local Anesthetics: 0.25% Sensorcaine HCL SubQ (cc) Surgeon: Samuel Tejada Estimated blood loss (cc): 10 Tourniquet Time (Minutes): 0 Specimen: Swab cultures left foot Condition: stable Disposition: floor Procedure in Detail: 01/29/17 09:28 Detail summary of procedure: Patient brought to surgical suite. Sign in procedure performed. Patient transferred to the surgical table and positioned properly safely securely. Left foot elevated on foam block. Anesthetic timeout taken left ankle prepped with alcohol 3 times. Ankle block carried out locations. Left foot prepped and draped in usual sterile manner. No tourniquet was employed during this procedure. Surgical timeout was taken. Left foot was then inspected an area of necrosis was noted just dorsal to the distal lateral aspect of the fourth/fifth metatarsal . A transverse incision was begun over the distal third metatarsal and brought laterally with 2 semielliptical incisions and Compazine the area of necrosis over the distal lateral aspect of the foot and then laterally and proximally. Incision was approximately 8 cm in length. Incision was continued down to the deep fascial layer. Areas of seropurulent drainage were noted and cultured immediately. Sinus tract was then found between the plantar ulcer at the distal aspect of the area of the fourth metatarsal. The bone was not involved. It was isolated with soft tissue. The distal aspect of the fourth metatarsal was noted to be of normal color texture density in character. All necrotic tissue was then debrided with Metzenbaum scissors and pickup and then thoroughly debrided with an ultrasonics Misonix debrider. Satisfied with a very clean wound distal aspect of the fourth metatarsal was noted with significant osteophytes on the distal aspect which was then resected using a command power saw. The wound was thoroughly irrigated again and ultrasonics Misonix debrider was employed again. Satisfied we had a clean wound sutures were placed on the medial and lateral aspect of the incision and a wound VAC was then applied. It was found to function properly. Patient was sent to holding room in good condition with vital signs stable assessment blood loss less than 10 mL. Anaerobic and aerobic cultures taken.
[2017-01-29] MEDS ORDERED: Dextrose Gel 15 GM PO PRN ×2 (09:39)
[2017-01-29] MEDS ORDERED: Acetaminophen 325 MG TABLET PO PRN (09:39)
[2017-01-29] MEDS ORDERED: Naloxone 0.4 MG/ML INJ IVP PRN (09:39)
[2017-01-29] MEDS ORDERED: Ondansetron ODT 4 MG TAB.RAPDIS SL PRN (09:39)
[2017-01-29] MEDS ORDERED: *HR* Dextrose 50 % in Water (Syg) 50 ML SYRINGE IVP PRN (09:39)
[2017-01-29] MEDS ORDERED: D5% in Water 1,000 ML IVC PRN (09:39)
[2017-01-29] MEDS ORDERED: *HR* LORazepam 0.5 MG TABLET PO PRN (09:39)
[2017-01-29] MEDS ORDERED: 0.9 % Sodium Chloride 1,000 ML IVC SCH (09:39)
[2017-01-29] MEDS ORDERED: Gabapentin 400 MG CAPSULE PO ONE (11:25)
--- NOTE | 2017-01-29 15:15 | Internal Med Progress Note ---
Date of Encounter: 01/29/17 Time of Encounter: 15:12 - Assessment and plan (1) Sepsis Current Visit: Yes Status: Acute Assessment and plan: due to left foot ulcer and cellulitis Improving cont broad spec abx wound cx showing G-ve rods and MSSA Qualifiers: Sepsis type: sepsis due to unspecified organism Qualified Code(s): A41.9 - Sepsis, unspecified organism (2) Cellulitis in diabetic foot Current Visit: Yes Status: Acute Assessment and plan: s/p I & D of multiple areas over left foot stump s/p Ostectomy of left 4th metatarsal cont broad spec abx Zosyn and Vanco his wound cx growing G-ve rods and MSSA Will check with application support intern Dr. Tejada about surgery findings whether pt does need assisted IV abx therapy cont IV pain meds PRN (3) Hypertension Current Visit: Yes Status: Acute Assessment and plan: BP stable with no meds cont close monitoring Qualifiers: Hypertension type: essential hypertension Qualified Code(s): I10 - Essential (primary) hypertension (4) Smoker Current Visit: Yes Status: Acute Assessment and plan: Counseled to quit placed on nicotine patches (5) MONIKA (acute kidney injury) Current Visit: Yes Status: Acute Assessment and plan: due to sepsis and dehydration resolved cont gentle hydration (6) Type 2 diabetes mellitus Current Visit: Yes Status: Acute Assessment and plan: on ISS for better BS control his HbA1C7.5 Resume home med Metformin too Qualifiers: Diabetes mellitus complication status: with skin complications Diabetes mellitus complication detail: with foot ulcer Diabetes mellitus keno terminal operator insulin use: without assisted use Qualified Code(s): E11.621 - Type 2 diabetes mellitus with foot ulcer; L97.509 - Non-pressure chronic ulcer of other part of unspecified foot with unspecified severity (7) DVT prophylaxis Current Visit: Yes Status: Acute Assessment and plan: on SQ Heparin - Subjective Interval history: Patient is a 56-year-old male with history of diabetes, who presented with left foot infection. 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 He went to his regular wound care appointment and after removing his brace, he was noted to have significant worsening of the growth with surrounding swelling, redness and some bloody discharge from the wound, and was referred to the ER. He had surgery done this morning, now resting comfortably. Denied any CP / SOB - Constitutional Vitals: Temp Pulse Resp BP Pulse Ox 99.2 F 72 16 124/71 96 01/29/17 14:57 01/29/17 14:57 01/29/17 14:57 01/29/17 14:57 01/29/17 14:57 General appearance: Present: A&O X 3, pleasant, no acute distress - Respiratory Respiratory exam: Present: CTAB. Absent: accessory muscle use, rales, rhonchi, wheezes - Cardiovascular Cardiovascular exam: Present: RRR, +S1, +S2. Absent: diastolic murmur, gallop, rubs, systolic murmur - GI/Abdominal GI/Abdominal exam: Present: soft. Absent: tenderness - Extremities Exam Additional comments: s/p left foot 4th metatarsal ostectomy , I & D - dressing and wound vac bag placed on - Psychiatric Psychiatric exam: Present: normal affect, normal mood Internal Medicine: Result - Labs CBC & Chem 7: 01/29/17 04:16 01/29/17 04:16 Labs: Short CBC 01/29/17 Range/Units 04:16 WBC 7.5 (4.3-11.1) K/mcL Hgb 10.4 L (12.9-16.9) g/dL Hct 30.8 L (37.5-50.1) % Plt Count 162 (140-400) K/mcL Neutrophils # 5.0 (1.6-8.9) K/mcL BMP 01/29/17 04:16 Sodium 129 L Potassium 3.8 Chloride 103 Carbon Dioxide 21 BUN 14 Creatinine 1.08 Glucose 146 H Calcium 8.8 - Impressions Impressions Foreign Body Localization X-Ray 01/28/17 00:00 IMPRESSION: No evidence of metallic foreign body within the orbits. D/ / Randal Vang MD / Randal Vang MD Interpreting Provider: Randal Vang MD Foot MRI 01/28/17 18:24 IMPRESSION: 1. Motion artifact significantly degrades image quality. 2. Status post transmetatarsal amputation. There is very minimal marrow edema within the distal aspect of the amputated 1st metatarsal without significant corresponding decreased T1 signal. Findings may reflect reactive marrow signal changes. Early osteomyelitis not entirely excluded. Remainder of the marrow signal unremarkable. 3. Soft tissue wound along the lateral aspect of the foot with a underlying phlegmon versus abscess within the subcutaneous tissues at the amputation site measuring approximate 2.0 x 4.1 x 3.7 cm. Pronounced surrounding soft tissue edema of the distal foot with diffuse skin thickening compatible with cellulitis. D/ / Randal Vang MD / Randal Vang MD Interpreting Provider: Randal Vang MD - VTE Documentation of Mechanical Device: Intermittent pneumatic compression device Consult Discharge Plan - Plan Referrals: Sebastián Sam MD [Primary Care Provider] -
[2017-01-29] MEDS: *HR* Metformin 500 MG TABLET PO SCH (20:28)
[2017-01-29] MEDS: *HR* Morphine 2 MG/ML SYRINGE IVP PRN (21:23)
[2017-01-30] MEDS ORDERED: *HR* Morphine 2 MG/ML SYRINGE IVP ONE (00:38)
[2017-01-30] MEDS: Vancomycin 1,750 MG in D5% in Water 500 ML IVPB SCH (00:53)
[2017-01-30] MEDS: *HR* Heparin 5,000 UNIT/ML VIAL SQ SCH ×4 (00:56→23:12)
[2017-01-30] MEDS: *HR* OxyCODONE Immed Rel 5 MG TABLET PO PRN (01:02)
[2017-01-30] MEDS: Piperacillin/Tazobactam 3.375 GM in D5% in Water (Mini-Bag+) 100 ML IVPB SCH ×2 (01:30→10:33)
[2017-01-30] MEDS: *HR* Morphine 2 MG/ML SYRINGE IVP PRN (06:07)
[2017-01-30] MEDS: *HR* OxyCODONE Immed Rel 5 MG TABLET PO SCH ×4 (07:02→23:11)
[2017-01-30] MEDS: Gabapentin 400 MG CAPSULE PO SCH ×2 (08:19→20:57)
[2017-01-30] MEDS: Nicotine 14 MG PATCH.TD24 TD SCH (08:20)
[2017-01-30] MEDS: *HR* Metformin 500 MG TABLET PO SCH ×2 (08:20→20:57)
[2017-01-30] MEDS: Multivit/Ca/Min/Fe/FA 1 TAB TABLET PO SCH (08:20)
[2017-01-30] MEDS: Insulin LISPRO 300 UNITS/3 ML VIAL SQ SCH ×4 (08:21→20:58)
[2017-01-30] MEDS ORDERED: Lidocaine -MPF 1% 5 ML AMPUL INFILT ONE (10:14)
[2017-01-30] MEDS ORDERED: Vancomycin 1,250 MG in D5% in Water 250 ML IVPB SCH (12:00)
--- NOTE | 2017-01-30 13:47 | Infectious Disease Consult ---
Date of Encounter: 01/30/17 Time of Encounter: 13:45 Assessment and Plan (1) Sepsis Status: Resolved Assessment and plan: Severe sepsis on admission. The patient had two SIRS criteria plus MONIKA. Secondary to left foot cellulitis. Improved. WBC has normalized. Tachycardia has resolved. Blood cultures drawn 01/27/17 are NGTD. Qualifiers: Sepsis type: sepsis due to unspecified organism Qualified Code(s): A41.9 - Sepsis, unspecified organism (2) Cellulitis in diabetic foot Status: Acute Assessment and plan: Location: Left foot. Likely secondary to left foot DFU. Causative organism MSSA and Enterobacter cloacae. Foot XR obtained in the ED showed soft tissue swelling, but no signs of osteomyelitis. MRI of the foot obtained 01/28/17 showed findings concerning for early osteomyelitis, phlegmon vs. abscess on the lateral aspect of the foot, and cellulitis. ESR and CRP are elevated, >130 and 210, respectively. Podiatry consulted. Status post incision and drainage multiple areas left foot, ostectomy fourth metatarsal, and application of wound VAC 01/29/[address] Tejada. Operative not reviewed. Extensive infection without evidence of osteomyelitis. Intra-operative cultures were obtained and are pending. Gram stain shows GPC and GNR. Based on the extensive nature of the infection, IV antibiotic therapy has been recommended by the podiatry team and I agree with this. Apparently, the patient feels he is unable to afford the copay for the medications at home or the cost of the supplies. I spent a large amount of time with the patient discussing the risks, benefits, and alternatives to IV antibiotics, including attempting treatment with PO antibiotics. I advised him that IV antibiotics are his best shot at limb salvage, but he continues to report he is unable to afford IV medications. We have made arrangements for the patient to go to the Infusion Center at [facility] for his IV antibiotic infusion and will therefore require a medication that uses once daily dosing. Although Rocephin is not first-line, we will recommend this medication as it has good MSSA coverage and is once daily dosing. Additionally, we will use Levaquin PO to cover the Enterobacter as PO has excellent bioavailability, about 95%. I also provided the patient with a [employer] coupon for the Levaquin which will give him a one-month supply for about $17. I did discuss with the patient that the Rocephin is not the best medication for the MSSA, but we are limited due to his financial situation and he agrees with this option. Discontinue Vanc and Zosyn. Start Rocephin 2 grams IV daily. Start Levaquin 750mg IV daily. Duration of treatment depends on the clinical picture, but the patient will require at least 2 weeks of IV antibiotics and perhaps 4-6 weeks. We will base our duration of treatment on how the patient responds clinically and his inflammatory markers. Get weekly CBC, BUN/Cr, ESR, and CRP every Thursday for the duration of treatment. Weekly PICC care per protocol. Wound care and activity restrictions as outlined by the primary team. Follow up with ID 02/16/17 at 0830. Total time spent with the patient >60 minutes. (3) MONIKA (acute kidney injury) Status: Acute Assessment and plan: Likely secondary to sepsis. Resolved. Continue to trend and dose-adjust antibiotics. (4) Foot ulcer due to secondary DM Status: Acute Assessment and plan: Etiology unclear. Follows with Dr. Tejada. Wound care per the podiatry team. (5) Type 2 diabetes mellitus Status: Acute Assessment and plan: Uncontrolled. HgbA1C 7.5% on admission. Recommend aggressive glucose monitoring and control to promote wound healing and prevent re-infection. BLE ABIs WNL. Qualifiers: Diabetes mellitus complication status: with skin complications Diabetes mellitus complication detail: with foot ulcer Diabetes mellitus care home insulin use: without care home use Qualified Code(s): E11.621 - Type 2 diabetes mellitus with foot ulcer; L97.509 - Non-pressure chronic ulcer of other part of unspecified foot with unspecified severity (6) Hypertension Status: Acute Qualifiers: Hypertension type: essential hypertension Qualified Code(s): I10 - Essential (primary) hypertension (7) Smoker Status: Acute Assessment and plan: Will likely hinder the patient's ability to heal his wound adequately. Discussed with the patient, but he is not receptive to this discussion. Infectious Disease HPI - Data of Consult Patient: new to practice Consult date: 01/30/17 Requesting Physician: Eduardo Kaur MD Primary Care Provider: Sebatsián Sam MD - Consult Narrative Reason for consult: Left foot infection History of present illness: Mr. Duran is a 56 year old male with a past medical history of diabetes, hyperlipidemia, hypertension, and status post transmetatarsal amputation 5 years ago. The patient presents to the ER on January 27 for left lower extremity infection. We're consulted January 30 further evaluation and treatment recommendations regarding left foot infection. Patient is a 56-year-old male with past medical history as stated above. The patient has a remote history of a transmetatarsal amputation about 5 years ago. The patient is unsure why he had the surgery. He states that approximately 5 or 6 weeks ago he noticed an ulcer to the plantar aspect of his foot and has been seen by Dr. Tejada in the wound clinic. He states he was scheduled for surgery yesterday and went to preop testing on Thursday and his foot was noted to be red and swollen. He was referred to the wound clinic who then sent him to the emergency room for admission. Upon arrival, the patient was afebrile, but he was tachycardic. He had a leukocytosis with neutrophilic predominance. He had an acute kidney injury. ESR is elevated at 100. A foot x-ray was completed that showed a soft tissue swelling concerning for cellulitis, but no osteomyelitis. The patient started empirically on IV Vanco and Zosyn. Podiatry was consulted and planned to take the patient to the operating room yesterday. He underwent NATHANIEL studies that were normal. A wound culture was obtained that grew out Enterobacter cloace and MSSA. He was admitted to the hospital for further evaluation and treatment. Since admission, the patient underwent an MRI that showed questionable early office myelitis, a phlegmon versus abscess on the lateral aspect of the left foot, and findings consistent with cellulitis. He did have a fever with a MAXIMUM TEMPERATURE of 100.8. His leukocytosis has resolved. His acute kidney injury has resolved as well. He was taken to the operating room on January 29 and underwent an incision and drainage of multiple areas of left foot, ostectomy of the fourth metatarsal, and application of the wound VAC. Intraoperative notes were reviewed. No bony abnormalities were appreciated. There were areas of infection that were cultured and are growing gram-positive cocci gram not negative rods with final ID and sensitivities pending. Bone culture was obtained and is preliminarily negative. Currently, the patient is on IV vancomycin and Zosyn. We've been asked to evaluate and make further recommendations. During my exam today, the patient endorsed a history as stated above. He denies any fevers or chills or rigors prior to admission. He denies any headache or neck pain. He denies any congestion, earache, or sore throat. He denies any chest pain, shortness of breath, or cough. He denies any nausea, vomiting, diarrhea, constipation. He denies any pain at the site of the infection, but does endorse redness and swelling that seemed to have appeared overnight. His states she change the dressing on Thursday and on Thursday when he took the dressing off the foot was very red and very swollen. He denies any known foul odor. He states there was some bloody drainage on the dressing, but nothing out of the ordinary. The patient lives at home with his and dog. He denies recent travel. He is a smoker and smokes about half a pack of cigarettes per day. He denies alcohol or illicit drug use. CC: Eduardo Kaur MD Past Med Surg Social Fam HX - Past Medical History Attestation: Yes The following information was validated with the patient. Source: patient, old records reviewed, nursing notes reviewed Medical history: diabetes, hyperlipidemia, hypertension Psychiatric history: no psych history - Past Surgical History Surgical History: orthopedic, other (left foot TMA) - Social History Smoking Status: Current every day smoker Packs per day: 0.5 Smokeless Tobacco Status: No Alcohol use: none Drug use: none Occupational status: unemployed Current living situation: Home - Independent Activity Level: Independent ambulation Recent Out of Country Travel Within the Last 8 Weeks: No Exposure or Possible Exposure to Illness During Travel: No - Family History Mother Living Status: Hx Family Cardiac Disorders: Yes Hx Family Endocrine Disorder: Yes Infectious Disease-CN:Meds Aspirin [Lo-Dose Aspirin EC] 81 mg PO QDPC 10/02/16 [History] Gabapentin [Neurontin] 800 mg PO BID 10/02/16 [History] Metformin HCl [Glucophage] 1,000 mg PO BID 10/02/16 [History] Multivitamin [Multivitamins] 1 tab PO DAILY 12/24/16 [History] Oxycodone HCl 10 mg PO QID PRN 01/27/17 [History] Morphine Sulfate SR (12 HR) [MS Contin] 30 mg PO DAILY 01/28/17 [History] Nicotine Patch [Nicoderm] 14 mg TD DAILY #28 01/30/17 [Rx] cefTRIAXone [Rocephin] 2,000 mg IVPB DAILY #30 vial 01/30/17 [Rx] levoFLOXacin [Levaquin] 750 mg PO DAILY #30 tablet 01/30/17 [Rx] Allergies No Known Allergies Allergy (Verified 01/27/17 11:21) All systems: reviewed and no additional remarkable complaints except as stated Exam - Constitutional Vitals: Temp Pulse Resp BP Pulse Ox 98.5 F 84 16 126/87 97 01/30/17 10:14 01/30/17 10:14 01/30/17 10:14 01/30/17 10:14 01/30/17 10:14 General appearance: cooperative, no acute distress, obese - Head Head exam: Present: atraumatic, normal inspection, normocephalic - Eye Eye exam: Present: EOMI, normal appearance, PERRL Pupils: Present: normal accommodation - ENT ENT exam: Present: mucous membranes moist - Neck Neck exam: Present: normal inspection - Respiratory Respiratory exam: Present: CTAB. Absent: rales, respiratory distress, rhonchi, wheezes - Cardiovascular Cardiovascular exam: Present: RRR, +S1, +S2 - GI/Abdominal GI/Abdominal exam: Present: distended (obese), normal bowel sounds, soft. Absent: tenderness - Extremities Exam Extremities exam: Present: normal inspection, pedal edema (2+ LLE). Absent: joint swelling, tenderness - Expanded Lower Extremity Exam 1 - 2.5cm x 2.5cm ulceration noted with dry wound bed. No active drainage noted. 2 - Status post previous TMA. Previous surgical incision well-healed. 3 - New surgical wound noted to the lateral aspect of the left foot. Wound gaping. Serous drainage noted on exam. No foul odor. Wound bed 80% granulation and 20% slough. - Neurological Exam Neurological exam: Present: alert, oriented X3, no focal deficits - Psychiatric Psychiatric exam: Present: normal affect, normal mood - Skin Skin exam: Present: dry, intact, normal color, warm Infectious Disease CN: Results - Labs CBC & Chem 7: 01/29/17 04:16 01/29/17 04:16 Cultures: Cultures 01/29/17 12:45 Surgical Biopsy Culture - Preliminary Left Foot 01/29/17 12:45 Wound Culture - Preliminary Left Foot Gram Negative Robby Gram Positive Cocci Serology: Serology 01/27/17 Range/Units 20:15 Urine Color Dark Yellow (Yellow) Urine Clarity Clear (Clear) Urine pH 6.0 (5.0-8.0) pH Units Ur Specific [place] > 1.030 H (1.010-1.025) Urine Protein 30 H (Neg-Trace) mg/dL Urine Glucose (UA) 500 H (Normal) mg/dL Urine Ketones Negative (Negative) mg/dL Urine Blood Negative (Negative) Urine Nitrite Negative (Negative) Urine Bilirubin Small H (Negative) Urine Urobilinogen Normal (Normal) mg/dL Ur Leukocyte Esterase Negative (Negative) Urine Microscopic RBC 3-5 H (0-3) per hpf Urine Microscopic WBC 0-3 (0-3) per hpf Ur Squamous Epith Cells Few (None-Few) per lpf Urine Bacteria None Seen (None-Few) per hpf Hyaline Casts None Seen (None-Few) per lpf Ur Culture Indicated? NO (NO) - VTE Documentation of Mechanical Device: Intermittent pneumatic compression device Consult Discharge Plan - Plan Referrals: Sebastián Sam MD [Primary Care Provider] - Hortencia Kowalski CNP [Advanced Practice Nurse] - 02/16/17 8:30 am Prescriptions: cefTRIAXone [Rocephin] 2,000 mg IVPB DAILY #30 vial levoFLOXacin [Levaquin] 750 mg PO DAILY #30 tablet Nicotine Patch [Nicoderm] 14 mg TD DAILY #28
[2017-01-30] MEDS: Levofloxacin 750 MG/150 ML 750 MG/150 ML BAG IVPB SCH (15:34)
--- NOTE | 2017-01-30 16:38 | Internal Med Progress Note ---
Date of Encounter: 01/30/17 Time of Encounter: 14:00 - Assessment and plan (1) Sepsis Current Visit: Yes Status: Resolved Assessment and plan: due to left foot ulcer and cellulitis Improving cont broad spec abx wound cx showing Enterobacter and MSSA Ideally he wound get benefir with 4 weeks IV abx but pt stated he can not afford all those IV abx ID also evalauted the pt and recommend Rocephin and Levofloxacin So will send him home with 4 weeks of Levofloxacin PO and 4 weeks of Rocephin 2gm IV daily PICC line placed in Possible d/c home in am with wound vac and IV abx Qualifiers: Sepsis type: sepsis due to unspecified organism Qualified Code(s): A41.9 - Sepsis, unspecified organism (2) Cellulitis in diabetic foot Current Visit: Yes Status: Acute Assessment and plan: s/p I & D of multiple areas over left foot stump s/p Ostectomy of left 4th metatarsal cont broad spec abx Levofloxacin and Rocephin his wound cx growing G-ve rods and MSSA (3) Hypertension Current Visit: Yes Status: Acute Assessment and plan: BP stable with no meds cont close monitoring Qualifiers: Hypertension type: essential hypertension Qualified Code(s): I10 - Essential (primary) hypertension (4) Smoker Current Visit: Yes Status: Acute Assessment and plan: Counseled to quit placed on nicotine patches (5) MONIKA (acute kidney injury) Current Visit: Yes Status: Acute Assessment and plan: due to sepsis and dehydration resolved (6) Type 2 diabetes mellitus Current Visit: Yes Status: Acute Assessment and plan: on ISS for better BS control his HbA1C7.5 Resumed home med Metformin Qualifiers: Diabetes mellitus complication status: with skin complications Diabetes mellitus complication detail: with foot ulcer Diabetes mellitus field service manager insulin use: without field service manager use Qualified Code(s): E11.621 - Type 2 diabetes mellitus with foot ulcer; L97.509 - Non-pressure chronic ulcer of other part of unspecified foot with unspecified severity (7) DVT prophylaxis Current Visit: Yes Status: Acute Assessment and plan: on SQ Heparin - Subjective Interval history: Patient is a 56-year-old male with history of diabetes, who presented with left foot infection. 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 He went to his regular wound care appointment and after removing his brace, he was noted to have significant worsening of the growth with surrounding swelling, redness and some bloody discharge from the wound, and was referred to the ER. He had surgery done y/d. No events over night. Denied any CP / SOB - Constitutional Vitals: Temp Pulse Resp BP Pulse Ox 98.3 F 93 16 138/76 98 01/30/17 14:37 01/30/17 14:37 01/30/17 14:37 01/30/17 14:37 01/30/17 14:37 General appearance: Present: A&O X 3, pleasant, no acute distress - Respiratory Respiratory exam: Present: CTAB. Absent: accessory muscle use, rales, rhonchi, wheezes - Cardiovascular Cardiovascular exam: Present: RRR, +S1, +S2. Absent: diastolic murmur, gallop, rubs, systolic murmur - GI/Abdominal GI/Abdominal exam: Present: soft. Absent: distended, tenderness - Extremities Exam Additional comments: Noticed much improved erythema and swelling over Left foot sump, 4 cm size open wound noticed plantar region at base of 4th metatarsal. Just came off the wound vac bag Internal Medicine: Result - Labs CBC & Chem 7: 01/29/17 04:16 01/29/17 04:16 Labs: Cardiac Enzymes 01/30/17 01/30/17 01/30/17 Range/Units 00:55 06:05 13:04 Troponin I 0.00 0.00 0.00 (0-0.03) ng/mL - VTE Documentation of Mechanical Device: Intermittent pneumatic compression device Consult Discharge Plan - Plan Referrals: Hortencia Kowalski CNP [Advanced Practice Nurse] - 02/16/17 8:30 am Sebastián Sam MD [Primary Care Provider] - Prescriptions: cefTRIAXone [Rocephin] 2,000 mg IVPB DAILY #30 vial levoFLOXacin [Levaquin] 750 mg PO DAILY #30 tablet Nicotine Patch [Nicoderm] 14 mg TD DAILY #28
--- NOTE | 2017-01-30 17:54 | Podiatry Progress Note ---
Date of Encounter: 01/30/17 Time of Encounter: 17:50 - Assessment and Plan (1) Cellulitis in diabetic foot Current Visit: Yes Status: Acute Assessment: #1. Resolving cellulitis/diabetic foot infection status post I&D #2 cultures identified pathogens #3 wound VAC to be changed today and it is a discharge within 24 hours #4 antibiotics for home care and wound VAC/wound care arranged Plan: #1 change wound VAC today and apply calcium alginate with silver over distal wound incision line #2 placement wound VAC within the defect on the distal lateral aspect of left foot #3 follow-up with Dr. Tejada within 2 weeks in wound care clinic Subjective Principal diagnosis: Diabetic foot infection status post I&D left foot Interval history: Patient underwent incision and drainage debridement of all infected tissue with placement of wound VAC. Left foot. Objective - Vital Signs Vital Signs: Vital Signs Temp Pulse Resp BP Pulse Ox 01/30/17 14:37 98.3 F 93 16 138/76 98 01/30/17 10:14 98.5 F 84 16 126/87 97 01/30/17 07:00 98.8 F 78 16 129/78 96 01/29/17 19:52 99.3 F 72 15 132/73 95 Intake and Output 01/30/17 01/30/17 01/30/17 07:59 15:59 23:59 Intake Total 600 / 600 250 / 250 250 / 250 Output Total 850 / 850 750 / 750 Balance -250 / -250 -500 / -500 250 / 250 Intake: IV Fluids 600 / 600 250 / 250 Levaquin Premix 750mg/150 150 / 150 mL 750 mg In 150 ml @ 100 mls/hr IVPB DAILY [facility] Rx#:[id number] Zosyn 3.375 GM In 100 / 100 Dextrose 5% (Minibag+) 100 ML 100 ML @ 25 mls/hr IVPB Q8H [facility] Rx#: [id number] Vancocin 1,750 MG In 500 / 500 Dextrose 5% 500 ML @ 334. 014 mls/hr IVPB Q12H [facility] Rx#:[id number] Rocephin 2,000 MG In 100 / 100 Dextrose 5% (Minibag+) 100 ML 100 ML @ 200 mls/ hr IVPB DAILY [facility] Rx#: [id number] Oral 250 / 250 Output: Urine 850 / 850 750 / 750 Other: Weight 111 kg Blood Glucose* 175 236 Patient Weight 01/30/17 23:59 Weight 111 kg - Exam Exam: #1 cellulitis resolving left leg receding in the left foot wound sutures intact no maceration no purulent drainage wound VAC functioning Incision: Present: healing, inflamed, clean and dry - Lab Result Diagrams: 01/29/17 04:16 01/29/17 04:16 Labs: Abnormal lab results RBC 3.37 M/mcL (4.19-5.50) L 01/29/17 04:16 Hgb 10.4 g/dL (12.9-16.9) L 01/29/17 04:16 Hct 30.8 % (37.5-50.1) L 01/29/17 04:16 ESR >= 130 mm/hr (0-10) H 01/29/17 04:16 Sodium 129 mEq/L (136-145) L 01/29/17 04:16 Glucose 146 mg/dL (70-99) H 01/29/17 04:16 POC Glucose 213 (58-89) H 01/29/17 19:59 Hemoglobin A1c 7.5 % (-5.6) H 01/27/17 16:00 Calculated Osmolality 271 (280-300) L 01/29/17 04:16 C-Reactive Protein 210 mg/L (Less than 5) H 01/29/17 04:16 Ur Specific [place] > 1.030 (1.010-1.025) H 01/27/17 20:15 Urine Protein 30 mg/dL (Neg-Trace) H 01/27/17 20:15 Urine Glucose (UA) 500 mg/dL (Normal) H 01/27/17 20:15 Urine Bilirubin Small (Negative) H 01/27/17 20:15 Urine Microscopic RBC 3-5 per hpf (0-3) H 01/27/17 20:15 Microbiology, Last 48 Hours 01/29/17 12:45 Surgical Biopsy Culture - Preliminary Left Foot 01/29/17 12:45 Wound Culture - Preliminary Left Foot Gram Negative Robby Gram Positive Cocci - VTE Documentation of Mechanical Device: Intermittent pneumatic compression device Consult Discharge Plan - Plan Referrals: Hortencia Kowalski CNP [Advanced Practice Nurse] - 02/16/17 8:30 am Sebastián Sam MD [Primary Care Provider] - Prescriptions: cefTRIAXone [Rocephin] 2,000 mg IVPB DAILY #30 vial levoFLOXacin [Levaquin] 750 mg PO DAILY #30 tablet Nicotine Patch [Nicoderm] 14 mg TD DAILY #28
--- NOTE | 2017-01-30 17:57 | Physician Discharge Referral ---
Home Health/Hosp Referral Info Attending Provider: Terrell Provider in Charge Post Discharge: Other (Terrell) - Diagnosis (1) Cellulitis in diabetic foot Priority: Primary Status: Acute - Respiratory Orders Smoking Cessation: Smoking cessation has been advised. For more information, call the [employer] Tobacco Quit Line at 3-735-EAQK-NOW. - Dressing/Wound Care Site: Left foot Type of Dressing/Treatments w/Frequency: #1 wound VAC 125 mmHg black foam low vacuum continuous #2 place calcium alginate over incision line and the distal aspect of the foot prior to placement of wound VAC #3 ambulate with knee roller at all times. #4 follow-up with Dr. Tejada of wound care clinic within 2 weeks of discharge - Diet/Nutrition Diet/Nutrition Orders: No Concentrated Sweets - Activity Activity Orders: Ambulate (With the knee roller only do not place any weight on left foot) - Services Needed Following services are medically necessary services: Nursing, Home Infusion Home Care Orders: #1 cleanse left foot with soap and water prior to dressing change/wound VAC Thursday. Again please place calcium alginate was Silver over incision line and the distal aspect of the foot prior to placing wound VAC. Incorporate into dressing. Other Treatments: Recommend CBC ESR creatinine weekly - Transfer Medications Prescriptions: cefTRIAXone [Rocephin] 2,000 mg IVPB DAILY #30 vial levoFLOXacin [Levaquin] 750 mg PO DAILY #30 tablet Nicotine Patch [Nicoderm] 14 mg TD DAILY #28 Home Medications: Aspirin [Lo-Dose Aspirin EC] 81 mg PO QDPC 10/02/16 [History] Gabapentin [Neurontin] 800 mg PO BID 10/02/16 [History] Metformin HCl [Glucophage] 1,000 mg PO BID 10/02/16 [History] Multivitamin [Multivitamins] 1 tab PO DAILY 12/24/16 [History] Oxycodone HCl 10 mg PO QID PRN 01/27/17 [History] Morphine Sulfate SR (12 HR) [MS Contin] 30 mg PO DAILY 01/28/17 [History] Nicotine Patch [Nicoderm] 14 mg TD DAILY #28 01/30/17 [Rx] cefTRIAXone [Rocephin] 2,000 mg IVPB DAILY #30 vial 01/30/17 [Rx] levoFLOXacin [Levaquin] 750 mg PO DAILY #30 tablet 01/30/17 [Rx] Allergies/Adverse Reactions: Allergies No Known Allergies Allergy (Verified 01/27/17 11:21) Certification: Further, I certify that my clinical findings support that this patient is homebound (i.e. absences from home require considerable and taxing effort and are for medical reasons or orthodox services or infrequently or short duration when for other reasons) because: Homebound Reason: Patient requires assistance of a person or device to safely leave home Attestation: My signature below is to certify that this patient is under my care and that I, or nurse practitioner, or a physician's cancer genetics assistant working with me, has a face-to -face encounter with this patient.
[2017-01-30] MEDS ORDERED: *HR* Morphine Sulfate SR (12 HR) 30 MG TABLET.ER PO SCH (19:00)
[2017-01-31] MEDS: *HR* OxyCODONE Immed Rel 5 MG TABLET PO SCH (05:56)
[2017-01-31 06:36] VITALS: BP 159/68
[2017-01-31] MEDS: Insulin LISPRO 300 UNITS/3 ML VIAL SQ SCH (07:51)
[2017-01-31] MEDS: Levofloxacin 750 MG/150 ML 750 MG/150 ML BAG IVPB SCH (08:03)
[2017-01-31] MEDS: Nicotine 14 MG PATCH.TD24 TD SCH (08:04)
[2017-01-31] MEDS: Multivit/Ca/Min/Fe/FA 1 TAB TABLET PO SCH (08:04)
[2017-01-31] MEDS: *HR* Heparin 5,000 UNIT/ML VIAL SQ SCH (08:04)
[2017-01-31] MEDS: *HR* Metformin 500 MG TABLET PO SCH (08:04)
[2017-01-31] MEDS: Gabapentin 400 MG CAPSULE PO SCH (08:04)
--- NOTE | 2017-01-31 10:00 | Discharge Summary ---
Date of Encounter: 01/31/17 Time of Encounter: 09:57 - Discharge Diagnosis (1) Foot ulcer due to secondary DM Priority: Primary Status: Acute Comments: s/p wound debridement and ostectomy of 4th metatarsal (2) Sepsis Priority: Primary Status: Resolved Qualifiers: Sepsis type: sepsis due to unspecified organism Qualified Code(s): A41.9 - Sepsis, unspecified organism (3) Cellulitis in diabetic foot Priority: Primary Status: Acute (4) Hypertension Priority: Secondary Status: Acute Qualifiers: Hypertension type: essential hypertension Qualified Code(s): I10 - Essential (primary) hypertension (5) Smoker Priority: Secondary Status: Acute (6) MONIAK (acute kidney injury) Priority: Secondary Status: Acute (7) Type 2 diabetes mellitus Priority: Secondary Status: Acute Qualifiers: Diabetes mellitus complication status: with skin complications Diabetes mellitus complication detail: with foot ulcer Diabetes mellitus terminal worker insulin use: without mcfp use Qualified Code(s): E11.621 - Type 2 diabetes mellitus with foot ulcer; L97.509 - Non-pressure chronic ulcer of other part of unspecified foot with unspecified severity - Discharge Medications Prescriptions: cefTRIAXone [Rocephin] 2,000 mg IVPB DAILY #30 vial levoFLOXacin [Levaquin] 750 mg PO DAILY #30 tablet Nicotine Patch [Nicoderm] 14 mg TD DAILY #28 Home Medications: Aspirin [Lo-Dose Aspirin EC] 81 mg PO QDPC 10/02/16 [History] Gabapentin [Neurontin] 800 mg PO BID 10/02/16 [History] Metformin HCl [Glucophage] 1,000 mg PO BID 10/02/16 [History] Multivitamin [Multivitamins] 1 tab PO DAILY 12/24/16 [History] Oxycodone HCl 10 mg PO QID PRN 01/27/17 [History] Morphine Sulfate SR (12 HR) [MS Contin] 30 mg PO DAILY 01/28/17 [History] Nicotine Patch [Nicoderm] 14 mg TD DAILY #28 01/30/17 [Rx] cefTRIAXone [Rocephin] 2,000 mg IVPB DAILY #30 vial 01/30/17 [Rx] levoFLOXacin [Levaquin] 750 mg PO DAILY #30 tablet 01/30/17 [Rx] Allergies/Adverse Reactions: Allergies No Known Allergies Allergy (Verified 01/27/17 11:21) Procedures/tests Complete & Pending: Procedures Performed prior 72 hours Category Date Time Status foot LT wo con [MR] Stat MRI 01/28/17 18:24 Completed Date of admission: 01/27/17 16:34 Primary care physician: Sebastián Sam MD Consults: 01/27/17 16:37 Consult to Vascular Surgery [CONS] Routine Consulting Provider: Vascular Surgery [place] Reason for Consult: DFU left foot, cellulitis. Time Notified: 16:30 Call Completed: Yes 01/28/17 19:25 Consult to Network Operations Lead [CONS] Routine Reason for SW Consult: Discharge planning 01/30/17 10:14 Consult to Invasive Line Access Team [CONS] Routine Reason for Consult: Picc Line Insertion Line Type: PICC 01/30/17 12:33 Consult to Infectious Diseases [CONS] Routine Consulting Provider: Infectious Disease [place] Reason for Consult: Antibiotic recommendations - requested by Dr. Tejada. Time Notified: 12:34 Call Completed: Yes 01/30/17 12:41 Consult to Invasive Line Access Team [CONS] Routine Reason for Consult: home atb Line Type: EPIV - Patient Status Disposition: Home Health Service Condition: Fair - Discharge Instructions Follow Up With: Hortencia Kowalski CNP [Advanced Practice Nurse] - 02/16/17 8:30 am Sebastián Sam MD [Primary Care Provider] - - Diet and Activity Activity: as per physical therapy Diet: advance to your usual diet Hospital course: Mr. Duran is a 56-year-old male with history of diabetes, who presented with left foot infection. 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 He went to his regular wound care appointment and after removing his brace, he was noted to have significant worsening of the growth with surrounding swelling, redness and some bloody discharge from the wound, and was referred to the ER. Pt was admitted in the hospital and placed him on empirical broad spec abx with Zosyn and Vancomycin. He was evaluated by Bonding Machine Operator Dr. Tejada, who requested for vascular studies and taken him to OR on following day. Pt did have I & D of multiple areas over left foot stump and Ostectomy of left 4th metatarsal on . Also pt was placed on wound vac bag. His wound cx growing MSSA and Enterococcus, at this point ID recommend him to go on 4 weeks IV Abx with ROcephin and Levofloxacin. Since pt refused to take 2 IV abx due to staley, he agreed to take Rocephin 2gm IV daily and PO Levofloxacin 750mg rodgers for 4 weeks. Pt is going to f/u with ID and Bonding Machine Operator. Also need to get weekly CBC, BUN/Cr, ESR, and CRP every Thursday to f/u with ID. - Time Spent with Patient Total time spent providing and/or coordinating discharge services: Greater than 30 minutes (Spent 45 minutes on this patient's discharge summary due to complex medical problems and patient needed a lot of education regarding discharge instructions) - Constitutional Vitals: Temp Pulse Resp BP Pulse Ox 98 F 74 16 159/68 98 01/31/17 06:36 01/31/17 06:36 01/31/17 06:36 01/31/17 06:36 01/31/17 06:36 General appearance: Present: A&O X 3, pleasant, no acute distress - Respiratory Respiratory exam: Present: CTAB. Absent: accessory muscle use, rales, rhonchi, wheezes - Cardiovascular Cardiovascular exam: Present: RRR, +S1, +S2. Absent: diastolic murmur, gallop, rubs, systolic murmur - Extremities Exam Additional comments: improved swelling and erythema over left foot as well as left leg. Wound vac + - VTE Documentation of Mechanical Device: Intermittent pneumatic compression device
[2017-01-31] MEDS ORDERED: Aminoglycoside Consult 1 EACH MC ONE (10:45)
--- NOTE | 2017-02-02 06:15 | Electrocardiograph Report ---
[place] [id number] Test Date: 2017-01-30 Pat Name: Rodri Duran Department: 114 Room: [facility] Gender: Patrol Mother: ROBERTO : 1960 Requested By: Eduardo Kaur Order Number: [id number] Reading MD: Mino Aparicio MD Measurements Intervals [place] Rate: 76 P: 23 WA: 172 QRS: 4 QRSD: 103 T: 19 QT: 371 QTc: 402 Interpretive Statements SINUS RHYTHM Electronically Signed On 02-02-2017 6:13:40 EDT by Mino Aparicio MD
== END 2017-01-31 10:46 | disposition home health service (06) | DRG 463 ==
LOC: 3NENU 11:17 → EMEROO 11:17 → 3NENU 15:00
PROVIDERS: ADMIT Family Medicine; ATTEND Family Medicine

== ENCOUNTER 2017-06-19 14:51 | Inpatient (IN) ==
--- NOTE | 2017-06-19 15:59 | Emergency Department Note ---
Disposition Clinical Impression: Cellulitis of foot Disposition: Admitted As Inpatient Condition: Good Referrals: NONE,PCP [Primary Care Provider] - Forms: ED Satisfaction Letter Time of Disposition: 18:30 General Adult HPI - General Chief complaint: ED Extremity Injury, Lower Stated complaint: left foot ulcer Time Seen by Provider: 06/19/17 15:47 Source: patient Mode of arrival: ambulatory Limitations: no limitations Nursing Notes Reviewed: Yes Vital Signs Reviewed: Yes - History of Present Illness HPI Narrative: 56-year-old male with history diabetes comes in with worsening drainage and redness to a diabetic ulcer. Patient is followed by design analyst here Dr. Tejada. Pain Scale: 5 - Related Data Home Medications Medication Instructions Recorded Confirmed Gabapentin [Neurontin] 800 mg PO TID 10/02/16 06/19/17 Metformin HCl [Glucophage] 1,000 mg PO BID 10/02/16 06/19/17 Oxycodone HCl 10 mg PO QID PRN 01/27/17 06/19/17 Morphine Sulfate SR (12 HR) [MS 30 mg PO DAILY 01/28/17 06/19/17 Contin] Sertraline [Zoloft] 50 mg PO DAILY 06/19/17 06/19/17 Allergies Allergy/AdvReac Type Severity Reaction Status Date / Time No Known Allergies Allergy Verified 01/27/17 11:21 Past Medical History - Past Medical History Medical history: Reports: diabetes, hyperlipidemia, hypertension Surgical history: Reports: orthopedic, other Psychiatric history: Reports: no psych history - Social History Smoking Status: Current every day smoker Smokeless Tobacco Status: No Alcohol use: Reports: none Drug use: Reports: none Physical Exam - General General appearance: alert Course - Reevaluation(s) Reevaluation #1: 76-year-old diabetic has had a previous transmetatarsal amputation left foot comes in with a draining ulcer. Patient did see podiatry. His symptoms got worse with increasing drainage and redness. Consultation was obtained with podiatry who wants him admitted and IV antibiotics. Time: 19:39 - Consultations Consultation #1: Discussed with Dr Tejada, phan. Time: 18:27 Consultation #2: Discussed with Dr. Murphy, admit Time: 19:39 Vital Signs Temperature 99.3 F 06/19/17 15:08 Pulse Rate 84 06/19/17 15:08 Respiratory Rate 20 06/19/17 15:08 Blood Pressure 129/78 06/19/17 15:08 O2 Sat by Pulse Oximetry 96 06/19/17 15:08 Temperature 99.3 F 06/19/17 15:08 Pulse Rate 84 06/19/17 15:08 Respiratory Rate 20 06/19/17 15:08 Blood Pressure 129/78 06/19/17 15:08 O2 Sat by Pulse Oximetry 96 06/19/17 15:08 Oxygen Delivery Oxygen Delivery Room Air Medical Decision Making - Lab Data Result diagrams: 06/19/17 16:08 06/19/17 16:08 Lab Results 06/19/17 06/19/17 06/19/17 Range/Units 16:08 16:08 16:08 WBC 7.1 (4.3-11.1) K/mcL RBC 3.69 L (4.19-5.50) M/mcL Hgb 11.5 L (12.9-16.9) g/dL Hct 34.1 L (37.5-50.1) % MCV 92.4 (83.0-100.0) fL MCH 31.2 (28.0-33.3) pg MCHC 33.7 (31.6-35.5) g/dL RDW 14.6 H (11.5-14.5) % Plt Count 109 L (140-400) K/mcL MPV 9.7 (9.4-12.4) fL Immature Gran % 0.1 (0-4) % Seg Neutrophils % 70.6 % Lymphocytes % 18.0 % Monocytes % 7.9 % Eosinophils % 2.8 % Basophils % 0.6 % Neutrophils # 5.0 (1.6-8.9) K/mcL Lymphocytes # 1.3 (0.6-4.6) K/mcL Monocytes # 0.6 (0.0-1.3) K/mcL Eosinophils # 0.2 (0.0-0.6) K/mcL Basophils # 0.0 (0.0-0.2) K/mcL ESR >= 130 H (0-10) mm/hr Sodium 133 L (136-145) mEq/L Potassium 4.6 H (3.5-4.5) mEq/L Chloride 101 (98-109) mEq/L Carbon Dioxide 23 (19-29) mEq/L BUN 15 (8-26) mg/dL Creatinine 1.34 H (0.72-1.25) mg/dL Est GFR ( Amer) > 60 (> 60) Est GFR (Non-Af Amer) 55 L (> 60) BUN/Creatinine Ratio 11 (6-26) Glucose 187 H (70-99) mg/dL Calculated Osmolality 282 (280-300) Calcium 9.0 (8.6-10.8) mg/dL
[2017-06-19 16:26] LABS: Basophils % 0.6 %; Eosinophils # 0.2 K/mcL (0.0-0.6); Eosinophils % 2.8 %; Hematocrit 34.1 % (37.5-50.1); Hemoglobin 11.5 g/dL (12.9-16.9); Immature Granulocytes % 0.1 % (0-4); Lymphocytes # 1.3 K/mcL (0.6-4.6); Mean Corpuscular HGB Conc 33.7 g/dL (31.6-35.5); Mean Corpuscular Hemoglobin 31.2 pg (28.0-33.3); Mean Corpuscular Volume 92.4 fL (83.0-100.0); Mean Platelet Volume 9.7 fL (9.4-12.4); Monocytes # 0.6 K/mcL (0.0-1.3); Monocytes % 7.9 %; Platelet Count 109 K/mcL (140-400); Red Blood Count 3.69 M/mcL (4.19-5.50); Red Cell Distribution Width 14.6 % (11.5-14.5); Segmented Neutrophils % 70.6 %
[2017-06-19] MEDS ORDERED: Vancomycin 1,000 MG in D5% in Water 250 ML IVPB ONE (18:28)
[2017-06-19] MEDS ORDERED: Piperacillin/Tazobactam 3.375 GM in D5% in Water (Mini-Bag+) 100 ML IVPB ONE (18:29)
[2017-06-19 19:16] LABS: BUN/Creatinine Ratio 11 (6-26); Blood Urea Nitrogen 15 mg/dL (8-26); Carbon Dioxide 23 mEq/L (19-29); Chloride 101 mEq/L (98-109); Glucose 187 mg/dL (70-99); Osmolality,Calculated 282 (280-300); Potassium 4.6 mEq/L (3.5-4.5); Sodium 133 mEq/L (136-145); eGFR For African Americans > 60 (> 60); eGFR For Non-African Americans 55 (> 60)
[2017-06-19] MEDS ORDERED: Piperacillin/Tazobactam 3.375 GM in Water for inj. (sterile) 20 ML IVP ONE (20:36)
[2017-06-19] MEDS ORDERED: D5% in Water 1,000 ML IVC PRN (21:35)
[2017-06-19] MEDS ORDERED: *HR* Dextrose 50 % in Water (Syg) 50 ML SYRINGE IVP PRN (21:35)
[2017-06-19] MEDS ORDERED: Dextrose Gel 15 GM PO PRN ×2 (21:35)
[2017-06-19] MEDS ORDERED: Naloxone 0.4 MG/ML INJ IVP PRN (21:36)
[2017-06-19] MEDS ORDERED: *HR* Morphine 2 MG/ML SYRINGE IVP PRN ×2 (21:36→21:53)
[2017-06-19] MEDS ORDERED: 0.9 % Sodium Chloride 1,000 ML IVC SCH ×2 (21:45→22:00)
--- NOTE | 2017-06-19 21:45 | Internal Med History&Physical ---
<Wicho Buck J - Last Filed: 06/19/17 21:42> Date of Encounter: 06/19/17 Time of Encounter: 21:43 Assessment and Plan (1) Foot ulcer due to secondary DM Current visit: Yes Status: Acute History of peripheral vascular disease transmetatarsal amputation left foot sometime in the past. The chronic diabetic foot ulcer on left foot with worsening redness, pain and is now draining. Dr. Tejada's been consulted and will see patient tomorrow. He recommends admission for IV antibiotics. At this time he does not appear toxic and is hemodynamically stable. Vancomycin with pharmacy to dose Zosyn IVPB Q8hrs Wound cultures sent- follow cultures Ms contin and oxycodone at home dose for pain Morphine IVP 2mg Q4hrs for breakthrough pain Continue home meds with the exception of oral hypoglycemic agents CBC, BMP (2) Type 2 diabetes mellitus Current visit: Yes Status: Chronic Stop oral hypoglycemic agents start sliding scale insulin coverage with before meals and at bedtime Accu-Cheks and diabetic diet Check A1c in the morning Qualifiers: Diabetes mellitus complication status: with skin complications Diabetes mellitus complication detail: with foot ulcer Diabetes mellitus exterminator insulin use: without assisted use Qualified Code(s): E11.621 - Type 2 diabetes mellitus with foot ulcer; L97.509 - Non-pressure chronic ulcer of other part of unspecified foot with unspecified severity (3) Hypertension Current visit: Yes Status: Chronic History of hypertension. Not on any antihypertensive agents. Blood pressure currently stable. Continue to monitor Qualifiers: Hypertension type: essential hypertension Qualified Code(s): I10 - Essential (primary) hypertension (4) MONIKA (acute kidney injury) Current visit: Yes Status: Acute 0.9 NS at 100ml/hr, recheck serum Cr in the morning. (5) DVT prophylaxis Current visit: Yes Status: Acute Heparin 5000 units subcutaneous BID Internal Medicine - H&P: HPI Chief complaint: CHRONIC DIABETIC FOOT ULCER Admitted From: Home Plans for Post Hospital Care: Home History of present illness: Mr. Duran is a 56 year old male with PMH of DM, HIV, HTN. He has had a previous transmetatarsal amputation left foot and presents today with a chronic diabetic foot ulcer. Patient states that he has had the foot ulcer for multiple weeks and is being followed by Dr. Tejada. His symptoms have continue and he is now having increasing pain, erythema and drainage. He is being admitted for IV ATB therapy Past Med Surg Social Fam HX - Past Medical History Medical history: diabetes, hyperlipidemia, hypertension Psychiatric history: no psych history - Past Surgical History Surgical History: orthopedic, other - Social History Smoking Status: Current every day smoker Smokeless Tobacco Status: No Alcohol use: none Drug use: none - Family History Mother Living Status: Hx Family Cardiac Disorders: Yes Hx Family Endocrine Disorder: Yes Internal Medicine - H&P: Meds Gabapentin [Neurontin] 800 mg PO TID 10/02/16 [History] Metformin HCl [Glucophage] 1,000 mg PO BID 10/02/16 [History] Oxycodone HCl 10 mg PO QID PRN 01/27/17 [History] Morphine Sulfate SR (12 HR) [MS Contin] 30 mg PO DAILY 01/28/17 [History] Sertraline [Zoloft] 50 mg PO DAILY 06/19/17 [History] 3 Allergy/AdvReac Type Severity Reaction Status Date / Time No Known Allergies Allergy Verified 01/27/17 11:21 All Systems PM: A 10-system review of systems was performed and is negative for pertinent findings except as documented above in the HPI. - Constitutional Constitutional: chills, fever(s) (subjective), no night sweats - Cardiovascular Cardiovascular ROS IM: no chest pain, no diaphoresis, no dyspnea, no lightheadedness, no palpitations, no syncope - Respiratory Respiratory: no cough, no dyspnea, no wheezing, no excessive phlegm production - Gastrointestinal Gastrointestinal: no abdominal pain, no diarrhea, no hematemesis, no hematochezia, no melena, no nausea, no vomiting - Musculoskeletal Musculoskeletal ROS IM: numbness (chronic; h/o neuropathy), tingling - Integumentary Integumentary IM: no rash, no unusual bruising Additional comments: Chronic diabetic foot ulcer of left foot chronic osteomyelitis. An open wound to age 1 measuring proximally 1 cm x 1 cm with erythema and drainage. - Neurological Neurological ROS: no confusion, no convulsions, no focal weakness, no numbness, no tingling, no tremor(s) - Hematologic/Lymphatic Hematologic/Lymphatic: no easy bruising - Constitutional Vitals: Temp Pulse Resp BP Pulse Ox 99.3 F 84 18 154/67 96 06/19/17 15:08 06/19/17 15:08 06/19/17 21:31 06/19/17 21:31 06/19/17 15:08 - Head Head exam: Present: atraumatic, normocephalic - Eye Eye exam: Present: PERRL, conjuntiva pink, sclera anicteric Pupils: Present: PERRL - Neck Neck exam general surgery: Present: supple, trachea midline. Absent: lymphadenopathy - Respiratory Respiratory exam: Present: CTAB. Absent: accessory muscle use, rales, rhonchi, wheezes - Cardiovascular Cardiovascular exam: Present: RRR, +S1, +S2. Absent: diastolic murmur, gallop, rubs, systolic murmur - GI/Abdominal GI/Abdominal exam: Present: normal bowel sounds, soft, no peritoneal signs. Absent: distended, tenderness - Extremities Exam Extremities exam: Present: tenderness, warm, radial pulses palpable and symmetrical. Absent: calf tenderness, cyanotic, normal capillary refill, pedal edema - Expanded Lower Extremities Exam Foot/Toe exam: Present: amputation (remote transmetatarsal amputation left foot) , erythema, tenderness 1 - 1x1cm diabetic foot ulcer, with drainage - Neurological Exam Neurological exam: Present: CN II-XII intact, oriented X3, no focal deficits. Absent: pronater drift, facial droop, speech deficit - Skin Skin exam: Present: dry, intact Internal Med - H&P Results - Labs CBC & Chem 7: 06/19/17 16:08 06/19/17 16:08 - Diagnostic Studies Other Images Status: image reviewed by me Additional comments: X-ray right foot reveals chronic osteomyelitis <Aris Christiansen - Last Filed: 06/20/17 01:27> Date of Encounter: 06/19/17 Time of Encounter: 23:30 - Constitutional Vitals: Temp Pulse Resp BP Pulse Ox 98.6 F 76 18 151/82 97 06/19/17 23:54 06/19/17 23:54 06/19/17 23:54 06/19/17 23:54 06/19/17 23:54 General appearance: Present: cooperative, A&O X 3, pleasant, no acute distress - Head Head exam: Present: normal inspection - ENT ENT exam: Present: mucous membranes dry, normal exam - Neck Neck exam general surgery: Present: supple. Absent: tenderness - Respiratory Respiratory exam: Present: CTAB. Absent: rales, rhonchi, wheezes - Cardiovascular Cardiovascular exam: Present: RRR, +S1, +S2 - GI/Abdominal GI/Abdominal exam: Present: normal bowel sounds, soft. Absent: hepatomegaly, splenomegaly, tenderness - Extremities Exam Extremities exam: Present: tenderness (left foot -- bandaged), warm. Absent: calf tenderness - Back Exam Back exam: Absent: CVA tenderness (L), CVA tenderness (R) - Neurological Exam Neurological exam: Present: alert, CN II-XII intact, oriented X3 - Skin Skin exam: Present: dry, warm Internal Med - H&P Results - Labs CBC & Chem 7: 06/19/17 16:08 06/19/17 16:08 - Attending Attestation I discussed the patient [place], PMH, ROS, lab data, and exam findings with Wicho Buck CNP. I then saw and examined patient independently as well. Patient is not acutely ill, but he admits to fighting a chronic wound infection on his foot for months. He's been following with Dr. Tejada in wound clinic. He felt a little ill/febrile yesterday and today, and Dr. Tejada advised him to come to ER. Clinically and radiographically, he appears to have osteromyelitis of his foot. He will likely need surgical debridement per Dr. Tejada. Meanwhile, we will keep him on IV antibiotics as detailed by Wicho. We will hold his oral diabetic agents and use SSI and basal insulin (if necessary) while in the hospital. Other than my comments above and noted exam findings, I agree with Wicho's assessment and plan.
[2017-06-19] MEDS ORDERED: *HR* Morphine Sulfate SR (12 HR) 30 MG TABLET.ER PO SCH (22:45)
[2017-06-19] MEDS: Gabapentin 400 MG CAPSULE PO SCH (22:50)
[2017-06-19] MEDS: Insulin LISPRO 300 UNITS/3 ML VIAL SQ SCH (22:52)
[2017-06-19 22:55] LABS: Hemoglobin A1C 6.4 %
[2017-06-19] MEDS ORDERED: Vancomycin 750 MG in D5% in Water 250 ML IVPB ONE (23:00)
[2017-06-20] MEDS ORDERED: Piperacillin/Tazobactam 3.375 GM in D5% in Water (Mini-Bag+) 100 ML IVPB SCH
[2017-06-20] MEDS ORDERED: Vancomycin 1,750 MG in D5% in Water 250 ML IVPB SCH (02:00)
[2017-06-20] MEDS: Piperacillin/Tazobactam 3.375 GM/200 ML BAG IVPB SCH ×3 (03:19→19:55)
[2017-06-20] MEDS: *HR* Heparin 5,000 UNIT/ML VIAL SQ SCH ×2 (04:35→16:36)
[2017-06-20 07:20] LABS: BUN/Creatinine Ratio 14 (6-26); Blood Urea Nitrogen 15 mg/dL (8-26); Calcium 8.5 mg/dL (8.6-10.8); Chloride 106 mEq/L (98-109); Glucose 106 mg/dL (70-99); Osmolality,Calculated 281 (280-300); Potassium 4.3 mEq/L (3.5-4.5); Sodium 135 mEq/L (136-145); eGFR For African Americans > 60 (> 60); eGFR For Non-African Americans > 60 (> 60)
[2017-06-20 07:36] LABS: Carbon Dioxide 18 mEq/L (19-29)
[2017-06-20] MEDS: Insulin LISPRO 300 UNITS/3 ML VIAL SQ SCH ×4 (07:46→19:54)
[2017-06-20 08:25] LABS: Basophils % 0.8 %; Eosinophils # 0.2 K/mcL (0.0-0.6); Eosinophils % 3.8 %; Hematocrit 31.1 % (37.5-50.1); Hemoglobin 10.4 g/dL (12.9-16.9); Immature Granulocytes % 0.2 % (0-4); Lymphocytes # 1.4 K/mcL (0.6-4.6); Lymphocytes % 25.5 %; Mean Corpuscular HGB Conc 33.4 g/dL (31.6-35.5); Mean Corpuscular Volume 92.6 fL (83.0-100.0); Mean Platelet Volume 10.3 fL (9.4-12.4); Monocytes # 0.5 K/mcL (0.0-1.3); Monocytes % 8.7 %; Neutrophils # 3.2 K/mcL (1.6-8.9); Platelet Count 116 K/mcL (140-400); Red Blood Count 3.36 M/mcL (4.19-5.50); Red Cell Distribution Width 14.5 % (11.5-14.5)
[2017-06-20] MEDS ORDERED: Gabapentin 400 MG CAPSULE PO SCH (09:00)
[2017-06-20] MEDS ORDERED: *HR* Morphine Sulfate SR (12 HR) 30 MG TABLET.ER PO SCH (09:00)
[2017-06-20] MEDS: Vancomycin 1,250 MG in D5% in Water 250 ML IVPB SCH ×2 (09:23→21:34)
--- NOTE | 2017-06-20 09:23 | Podiatry Consult Note ---
Date of Encounter: 06/20/17 Time of Encounter: 09:20 Assessment and Plan (1) Foot ulcer Current visit: No Status: Acute Assessment: #1 diabetic foot ulcer with obvious localized cellulitis and infection with seropurulent drainage/abscess. Distal medial plantar left foot #2 diabetes with neuropathy and nephropathy #3 multiple comorbidities as outlined in history. Plan: #1 perform limited I and D at bedside with deep cultures obtained aerobic and anaerobic. #2 irrigated aggressively with saline and the wound gently packed with sterile gauze and a dry sterile dressing applied which will be continued every 12 hours #3 continue broad-spectrum antibiotics until such time pathogen is ID #40 evaluate for further formal debridement as necessary depending upon response to treatment. Qualifiers: Laterality: left Non-pressure ulcer stage: with fat layer exposed Qualified Code(s): L97.522 - Non-pressure chronic ulcer of other part of left foot with fat layer exposed History of Present Illness Chief complaint: Diabetic foot infection with ulceration HPI: Mr. Duran is a 56 year old male, is known to me presents to the ED last night however after a 2 day history of malaise fatigue nausea. Patient's states that his noticed increased swelling and redness. He presented to the ED last night and was directly admitted for intravenous antibiotics. Patient is known to me. Patient had recent incision and drainage and debridement of the lateral distal aspect of his left foot now healed. Patient subsequently used a inappropriate insert/AFO prior to receiving is no one causing an ulceration on the plantar medial aspect of his left foot. This was healing uneventfully albeit slowly and he was examined the wound care clinic this past Thursday approximately 72 hours ago. At that time his left foot was completely unremarkable . He has a ulceration on the plantar distal medial aspect of his left foot beneath the distal first metatarsal. He has localized edema and erythema. He no longer complains of malaise fatigue nausea chills or fever. Today at bedside a limited I&D was performed and cultures were obtained aerobic and anaerobic. We will continue broad spectrum antibiotics until we are able to identify the pathogen at which time he will be placed on appropriate antibiotics and discharged local wound care will continue. Anticipation of possible I&D formal operating room is still a possibility depending upon further evaluation with next 24 hours. Past Med Surg Social Fam HX - Past Medical History Medical history: diabetes, hyperlipidemia, hypertension Psychiatric history: no psych history - Past Surgical History Surgical History: orthopedic, other - Social History Smoking Status: Current every day smoker Packs per day: 1 Smokeless Tobacco Status: No Alcohol use: none Drug use: none - Family History Mother History Unknown: Yes Living Status: Hx Family Cardiac Disorders: Yes Hx Family Endocrine Disorder: Yes Medications and Allergies Gabapentin [Neurontin] 800 mg PO TID 10/02/16 [History] Metformin HCl [Glucophage] 1,000 mg PO BID 10/02/16 [History] Oxycodone HCl 10 mg PO QID PRN 01/27/17 [History] Morphine Sulfate SR (12 HR) [MS Contin] 30 mg PO DAILY 01/28/17 [History] Sertraline [Zoloft] 50 mg PO DAILY 06/19/17 [History] 3 Allergy/AdvReac Type Severity Reaction Status Date / Time No Known Allergies Allergy Verified 01/27/17 11:21 All Systems Reviewed: A 10-system review of systems was performed and is negative for pertinent findings except as documented above in the HPI. Physical Exam - Constitutional Vitals: Temp Pulse Resp BP Pulse Ox 98.0 F 60 18 116/68 97 06/20/17 07:40 06/20/17 07:40 06/20/17 07:40 06/20/17 07:40 06/20/17 07:40 General appearance: average body habitus - Expanded Lower Extremities Exam Gait: Present: not tested/not observed - Neurological Exam Additional comments: Patient with absence of diminished epicritic sensation, loss of protective sensation noted. Absent diminished vibratory sensation from distal left foot to tibia. DTR patella and patellar equal symmetrical. No spasticity rigidity or flaccidity.. - Skin Additional comments: Ulceration 2 cm x 2 cm x 5 cm deep with a sinus tract toward the distal aspect of the first metatarsal. There is localized cellulitis of the distal medial left foot. +1 edema of the left foot and leg. No ascending pharyngitis or localized cellulitis. Seropurulent drainage emanating from the wound - Vascular Capillary Refill: less than 3 seconds Lower Extremity Vascular: decreased fine/light touch, foot drop, no vascular compromise, sensory deficit Results - Labs Result Diagrams: 06/20/17 06:39 06/20/17 06:39 Labs: Abnormal lab results RBC 3.36 M/mcL (4.19-5.50) L 06/20/17 06:39 Hgb 10.4 g/dL (12.9-16.9) L 06/20/17 06:39 Hct 31.1 % (37.5-50.1) L 06/20/17 06:39 Plt Count 116 K/mcL (140-400) L 06/20/17 06:39 ESR >= 130 mm/hr (0-10) H 06/19/17 16:08 Sodium 135 mEq/L (136-145) L 06/20/17 06:39 Carbon Dioxide 18 mEq/L (19-29) L 06/20/17 06:39 Glucose 106 mg/dL (70-99) H 06/20/17 06:39 POC Glucose 269 (58-89) H 06/19/17 22:11 Hemoglobin A1c 6.4 % (-5.6) H 06/19/17 22:16 Calcium 8.5 mg/dL (8.6-10.8) L 06/20/17 06:39 H & H 06/20/17 Range/Units 06:39 Hgb 10.4 L (12.9-16.9) g/dL Hct 31.1 L (37.5-50.1) % All other labs normal. Consult Discharge Plan - Plan Referrals: NONE,PCP [Primary Care Provider] -
[2017-06-20] MEDS: Gabapentin 400 MG CAPSULE PO SCH ×3 (09:24→19:53)
[2017-06-20] MEDS: *HR* OxyCODONE Immed Rel 5 MG TABLET PO PRN ×2 (09:26→19:54)
--- NOTE | 2017-06-20 10:15 | Internal Med Progress Note ---
Date of Encounter: 06/20/17 Time of Encounter: 08:00 - Assessment and plan (1) Foot ulcer due to secondary DM Current Visit: Yes Status: Acute Assessment and plan: Dr. Tejada did wound wash at bed side sent for wound cx cont empirical abx Zosyn and Tariq will deescalate abx depending on wound cx cont supportive care No signs of osteo ESR significantly elevated will trend on ESR and CRP (2) Type 2 diabetes mellitus Current Visit: Yes Status: Chronic Assessment and plan: held metformin HbA1C 6.4 placed him on ISS Qualifiers: Diabetes mellitus complication status: with skin complications Diabetes mellitus complication detail: with foot ulcer Diabetes mellitus manager long term care insulin use: without manager long term care use Qualified Code(s): E11.621 - Type 2 diabetes mellitus with foot ulcer; L97.509 - Non-pressure chronic ulcer of other part of unspecified foot with unspecified severity (3) Hypertension Current Visit: Yes Status: Chronic Assessment and plan: resumed home meds Qualifiers: Hypertension type: essential hypertension Qualified Code(s): I10 - Essential (primary) hypertension (4) DVT prophylaxis Current Visit: Yes Status: Acute Assessment and plan: on Heparin SQ (5) MONIKA (acute kidney injury) Current Visit: No Status: Acute Assessment and plan: Improved d/c IVF - Subjective Interval history: Mr. Duran is a 56 year old male, with DM2, left foot ulcer s/p transverse metatarsal amputation who presented to ER with swelling and redness over plater region of Left foot with 2 cm size open wound. He is admited in the hospital for Left foot infection and started him on IV abx. I did examine the pt along with Dr. Tejada at bed side, he does have purulent, foul smell discharge coming through the Left foot ulcer. His pain is tolerable with current meds. No fever/ no chills - Constitutional Vitals: Temp Pulse Resp BP Pulse Ox 98.0 F 60 18 116/68 97 06/20/17 07:40 06/20/17 07:40 06/20/17 07:40 06/20/17 07:40 06/20/17 07:40 General appearance: Present: cooperative, A&O X 3, pleasant, no acute distress - Head Head exam: Present: atraumatic, normal inspection - Neck Neck exam general surgery: Present: supple - Respiratory Respiratory exam: Present: decreased breath sounds. Absent: rales, respiratory distress, rhonchi, wheezes - Cardiovascular Cardiovascular exam: Present: RRR, +S1, +S2. Absent: tachycardia - GI/Abdominal GI/Abdominal exam: Present: normal bowel sounds, soft. Absent: rebound, rigid, tenderness - Extremities Exam Extremities exam: Absent: calf tenderness, pedal edema, tenderness Additional comments: 1.5 to 2 cm open wound with purulent drainage noticed over Left foot plantar region - Psychiatric Psychiatric exam: Present: normal affect, suicidal ideation Internal Medicine: Result - Labs CBC & Chem 7: 06/20/17 06:39 06/20/17 06:39 Labs: Short CBC 06/20/17 Range/Units 06:39 WBC 5.3 (4.3-11.1) K/mcL Hgb 10.4 L (12.9-16.9) g/dL Hct 31.1 L (37.5-50.1) % Plt Count 116 L (140-400) K/mcL Neutrophils # 3.2 (1.6-8.9) K/mcL BMP 06/20/17 06:39 Sodium 135 L Potassium 4.3 Chloride 106 Carbon Dioxide 18 L BUN 15 Creatinine 1.07 Glucose 106 H Calcium 8.5 L Consult Discharge Plan - Plan Referrals: NONE,PCP [Primary Care Provider] -
[2017-06-20] MEDS: *HR* Morphine Sulfate SR (12 HR) 30 MG TABLET.ER PO SCH (20:00)
[2017-06-20] MEDS ORDERED: Insulin LISPRO 300 UNITS/3 ML VIAL SQ SCH (21:00)
[2017-06-21 03:57] LABS: Hematocrit 32.5 % (37.5-50.1); Hemoglobin 10.6 g/dL (12.9-16.9); Immature Granulocytes % 0.2 % (0-4); Lymphocytes % 23.3 %; Mean Corpuscular HGB Conc 32.6 g/dL (31.6-35.5); Mean Corpuscular Hemoglobin 30.9 pg (28.0-33.3); Mean Corpuscular Volume 94.8 fL (83.0-100.0); Mean Platelet Volume 9.6 fL (9.4-12.4); Platelet Count 130 K/mcL (140-400); Red Blood Count 3.43 M/mcL (4.19-5.50); Red Cell Distribution Width 14.6 % (11.5-14.5)
[2017-06-21 03:58] LABS: Basophils % 0.8 %; Eosinophils # 0.2 K/mcL (0.0-0.6); Eosinophils % 4.6 %; Lymphocytes # 1.1 K/mcL (0.6-4.6); Monocytes # 0.4 K/mcL (0.0-1.3); Monocytes % 8.1 %
[2017-06-21 04:10] LABS: BUN/Creatinine Ratio 14 (6-26); Blood Urea Nitrogen 16 mg/dL (8-26); Calcium 8.8 mg/dL (8.6-10.8); Carbon Dioxide 22 mEq/L (19-29); Chloride 107 mEq/L (98-109); Glucose 149 mg/dL (70-99); Osmolality,Calculated 286 (280-300); Potassium 4.4 mEq/L (3.5-4.5); Sodium 136 mEq/L (136-145); eGFR For African Americans > 60 (> 60); eGFR For Non-African Americans > 60 (> 60)
[2017-06-21] MEDS: *HR* Heparin 5,000 UNIT/ML VIAL SQ SCH ×2 (04:34→17:56)
[2017-06-21] MEDS: Piperacillin/Tazobactam 3.375 GM/200 ML BAG IVPB SCH ×3 (04:34→19:49)
[2017-06-21] MEDS: *HR* OxyCODONE Immed Rel 5 MG TABLET PO PRN ×4 (05:20→19:48)
[2017-06-21 08:29] LABS: C-Reactive Protein 92 mg/L (Less than 5)
[2017-06-21] MEDS: Insulin LISPRO 300 UNITS/3 ML VIAL SQ SCH ×4 (08:35→21:31)
[2017-06-21] MEDS: Gabapentin 400 MG CAPSULE PO SCH ×3 (09:49→21:26)
[2017-06-21] MEDS: Vancomycin 1,250 MG in D5% in Water 250 ML IVPB SCH ×2 (10:39→21:26)
--- NOTE | 2017-06-21 12:06 | Internal Med Progress Note ---
Date of Encounter: 06/21/17 Time of Encounter: 12:03 - Assessment and plan (1) Foot ulcer due to secondary DM Current Visit: Yes Status: Acute Assessment and plan: Dr. Tejada did wound wash at bed side y/d still has more purulent drainage..may need I & D in AM wound cx growing E. Coli will cont empirical abx Zosyn and Vanco will deescalate abx in AM cont supportive care No signs of osteo ESR and CRP started trending down (2) Type 2 diabetes mellitus Current Visit: Yes Status: Chronic Assessment and plan: held metformin HbA1C 6.4 placed him on ISS Qualifiers: Diabetes mellitus complication status: with skin complications Diabetes mellitus complication detail: with foot ulcer Diabetes mellitus half-way insulin use: without half-way use Qualified Code(s): E11.621 - Type 2 diabetes mellitus with foot ulcer; L97.509 - Non-pressure chronic ulcer of other part of unspecified foot with unspecified severity (3) Hypertension Current Visit: Yes Status: Chronic Assessment and plan: resumed home meds Qualifiers: Hypertension type: essential hypertension Qualified Code(s): I10 - Essential (primary) hypertension (4) DVT prophylaxis Current Visit: Yes Status: Acute Assessment and plan: on Heparin SQ (5) MONIKA (acute kidney injury) Current Visit: No Status: Acute Assessment and plan: Improved d/c IVF - Subjective Interval history: Mr. Duran is a 56 year old male, with DM2, left foot ulcer s/p transverse metatarsal amputation who presented to ER with swelling and redness over plater region of Left foot with 2 cm size open wound. He is admitted in the hospital for Left foot infection and started him on IV abx. I did examine the pt along with Dr. Tejada at bed side, he does have purulent, foul smell discharge coming through the Left foot ulcer. His pain is tolerable with current meds. No fever/ no chills..still having purulent discharge from the wound - Constitutional Vitals: Temp Pulse Resp BP Pulse Ox 98.4 F 59 16 132/70 99 06/21/17 11:21 06/21/17 11:21 06/21/17 11:21 06/21/17 11:21 06/21/17 11:21 General appearance: Present: cooperative, A&O X 3, pleasant, no acute distress - Head Head exam: Present: atraumatic - Neck Neck exam general surgery: Present: supple - Respiratory Respiratory exam: Present: decreased breath sounds. Absent: rales, respiratory distress, rhonchi, wheezes - Cardiovascular Cardiovascular exam: Present: RRR, +S1, +S2 - GI/Abdominal GI/Abdominal exam: Present: normal bowel sounds, soft. Absent: rebound, rigid, tenderness - Extremities Exam Extremities exam: Present: pedal edema (left leg). Absent: calf tenderness, tenderness Additional comments: 1.5 to 2 cm open wound with persistent purulent drainage noticed over Left foot plantar region - Back Exam Back exam: Absent: CVA tenderness (L), CVA tenderness (R) - Neurological Exam Neurological exam: Present: alert, oriented X3 Internal Medicine: Result - Labs CBC & Chem 7: 06/21/17 03:24 06/21/17 03:24 Labs: Short CBC 06/21/17 Range/Units 03:24 WBC 4.8 (4.3-11.1) K/mcL Hgb 10.6 L (12.9-16.9) g/dL Hct 32.5 L (37.5-50.1) % Plt Count 130 L (140-400) K/mcL Neutrophils # 3.0 (1.6-8.9) K/mcL BMP 06/21/17 03:24 Sodium 136 Potassium 4.4 Chloride 107 Carbon Dioxide 22 BUN 16 Creatinine 1.13 Glucose 149 H Calcium 8.8 Consult Discharge Plan - Plan Referrals: NONE,PCP [Non-Partnered Physician] -
[2017-06-21] MEDS: *HR* Morphine Sulfate SR (12 HR) 30 MG TABLET.ER PO SCH (21:25)
[2017-06-22] MEDS: *HR* Heparin 5,000 UNIT/ML VIAL SQ SCH (04:47)
[2017-06-22] MEDS: *HR* OxyCODONE Immed Rel 5 MG TABLET PO PRN ×2 (04:47→08:49)
[2017-06-22] MEDS: Piperacillin/Tazobactam 3.375 GM/200 ML BAG IVPB SCH (04:48)
[2017-06-22] MEDS: Insulin LISPRO 300 UNITS/3 ML VIAL SQ SCH ×2 (07:41→12:38)
[2017-06-22] MEDS: Gabapentin 400 MG CAPSULE PO SCH ×2 (08:48→15:44)
[2017-06-22] MEDS ORDERED: cefTRIAXone 2,000 MG in Water for inj. (sterile) 20 ML IVPB SCH (09:00)
[2017-06-22 11:38] VITALS: BP 121/63
[2017-06-22] MEDS ORDERED: Aminoglycoside Consult 1 EACH MC ONE (14:54)
--- NOTE | 2017-06-22 15:49 | Discharge Summary ---
Date of Encounter: 06/22/17 Time of Encounter: 08:45 - Discharge Diagnosis (1) Foot ulcer due to secondary DM Priority: Primary Status: Acute (2) Type 2 diabetes mellitus Priority: Secondary Status: Chronic Qualifiers: Diabetes mellitus complication status: with skin complications Diabetes mellitus complication detail: with foot ulcer Diabetes mellitus chcf insulin use: without plastics repairer use Qualified Code(s): E11.621 - Type 2 diabetes mellitus with foot ulcer; L97.509 - Non-pressure chronic ulcer of other part of unspecified foot with unspecified severity (3) Hypertension Priority: Secondary Status: Chronic Qualifiers: Hypertension type: essential hypertension Qualified Code(s): I10 - Essential (primary) hypertension (4) DVT prophylaxis Priority: Secondary Status: Acute (5) MONIKA (acute kidney injury) Priority: Secondary Status: Acute - Discharge Medications Prescriptions: Amoxicillin/Clavulanate [Augmentin] 875 mg PO BIDWM #14 tablet Lactobacillus Acidophilus [Acidophilus Lactobacilli] 1 each PO BID #30 capsule Home Medications: Gabapentin [Neurontin] 800 mg PO TID 10/02/16 [History] Metformin HCl [Glucophage] 1,000 mg PO BID 10/02/16 [History] Oxycodone HCl 10 mg PO QID PRN 01/27/17 [History] Morphine Sulfate SR (12 HR) [MS Contin] 30 mg PO DAILY 01/28/17 [History] Sertraline [Zoloft] 50 mg PO DAILY 06/19/17 [History] Amoxicillin/Clavulanate [Augmentin] 875 mg PO BIDWM #14 tablet 06/22/17 [Rx] Lactobacillus Acidophilus [Acidophilus Lactobacilli] 1 each PO BID #30 capsule 06/22/17 [Rx] Allergies/Adverse Reactions: 3 Allergy/AdvReac Type Severity Reaction Status Date / Time No Known Allergies Allergy Verified 01/27/17 11:21 Date of admission: 06/19/17 21:53 Primary care physician: Sebastián Sam MD - Patient Status Disposition: Home, Self-Care Condition: Good Overall status at discharge: patient is back to baseline - Discharge Instructions Follow Up With: NONE,PCP [Non-Partnered Physician] - Samuel Tejada DPM [Partnered Physician] - Additional Instructions: Please see Dr. Tejada on Thursday Also f/u with Wound care closely Need daily dressing change - Diet and Activity Activity: increase activity as tolerated Diet: diabetic diet Hospital course: Mr. Duran is a 56 year old male, with DM2, left foot ulcer s/p transverse metatarsal amputation who presented to ER with swelling and redness over plater region of Left foot with 2 cm size open wound. He is admitted in the hospital for Left foot infection and started him on IV abx. I did examine the pt along with Dr. Tejada at bed side, he does have purulent, foul smell discharge coming through the Left foot ulcer. Pt was started on empirical abx Zosyn and Vancomycin. His wound cx growing E. Coli. Pt was evaluated by Dr. Tejada today, his wound looks lot better and swelling also improved. So will d/c him home today in stable condition. Recommend to f/u with PCP and Dr. Tejada in 5 days - Time Spent with Patient Total time spent providing and/or coordinating discharge services: - Constitutional Vitals: Temp Pulse Resp BP Pulse Ox 98.6 F 64 16 121/63 95 06/22/17 11:32 06/22/17 11:32 06/22/17 11:32 06/22/17 11:32 06/22/17 11:32 General appearance: Present: cooperative, A&O X 3, pleasant, no acute distress - Head Head exam: Present: atraumatic, normal inspection - Respiratory Respiratory exam: Present: decreased breath sounds. Absent: rales, respiratory distress, rhonchi, wheezes - Cardiovascular Cardiovascular exam: Present: RRR, +S1, +S2. Absent: tachycardia - GI/Abdominal GI/Abdominal exam: Present: soft. Absent: rebound, rigid, tenderness - Extremities Exam Extremities exam: Absent: calf tenderness, pedal edema, tenderness Additional comments: improving swelling and erythema in Left foot - Neurological Exam Neurological exam: Present: alert, oriented X3 - Psychiatric Psychiatric exam: Present: normal affect, normal mood
--- NOTE | 2017-06-22 17:36 | Podiatry Progress Note ---
Date of Encounter: 06/22/17 Time of Encounter: 12:30 - Assessment and Plan (1) Foot ulcer Current Visit: No Status: Acute Assessment: #1 diabetic foot ulcer with obvious localized cellulitis and infection with seropurulent drainage/abscess. Distal medial plantar left foot #2 diabetes with neuropathy and nephropathy #3 multiple comorbidities as outlined in history. Plan: #1 perform limited I and D at bedside with deep cultures obtained aerobic and anaerobic. #2 irrigated aggressively with saline and the wound gently packed with sterile gauze and a dry sterile dressing applied which will be continued every 12 hours #3 continue broad-spectrum antibiotics until such time pathogen is ID #40 evaluate for further formal debridement as necessary depending upon response to treatment. Dictation for 06/22/2017 Assessment: #1 the right foot ulcer with pathogen identified as Escherichia coli pansensitive #2 resolution of all cellulitis erythema of the left foot no purulent drainage. Plan: #1 continue home wound care as instructed with packing with Mesalt after irrigation with saline and peroxide twice a day #2 By mouth antibiotics for 14 days #3 will perform excision of ulceration primary closure in approximately 10 days as an outpatient if we do not see any progressive healing over the next 1o days Qualifiers: Laterality: left Non-pressure ulcer stage: with fat layer exposed Qualified Code(s): L97.522 - Non-pressure chronic ulcer of other part of left foot with fat layer exposed Subjective Principal diagnosis: Diabetic foot ulcer left Interval history: Patient underwent limited I&D at bedside previously with deep cultures revealed Escherichia coli, pansensitive. He underwent daily irrigation and packing of the wound. All cellulitis has resolved. X-rays are not indicative of any kind of osteomyelitis at this time. Objective - Vital Signs Vital Signs: Vital Signs Temp Pulse Resp BP Pulse Ox 06/22/17 11:32 98.6 F 64 16 121/63 95 06/22/17 07:23 98.3 F 52 16 118/70 97 06/22/17 00:04 98.2 F 63 18 133/70 98 06/21/17 21:25 98.0 F 61 18 131/74 98 Intake and Output 06/22/17 06/22/17 06/22/17 07:59 15:59 23:59 Other: Blood Glucose* 118 153 - Exam Incision: Present: healing, clean and dry - Lab Result Diagrams: 06/21/17 03:24 06/21/17 03:24 Labs: Abnormal lab results RBC 3.43 M/mcL (4.19-5.50) L 06/21/17 03:24 Hgb 10.6 g/dL (12.9-16.9) L 06/21/17 03:24 Hct 32.5 % (37.5-50.1) L 06/21/17 03:24 RDW 14.6 % (11.5-14.5) H 06/21/17 03:24 Plt Count 130 K/mcL (140-400) L 06/21/17 03:24 ESR 109 mm/hr (0-10) H 06/21/17 03:24 Glucose 149 mg/dL (70-99) H 06/21/17 03:24 POC Glucose 261 (58-89) H 06/21/17 20:38 Hemoglobin A1c 6.4 % (-5.6) H 06/19/17 22:16 C-Reactive Protein 92 mg/L (Less than 5) H 06/21/17 03:24 Microbiology, Last 48 Hours 06/20/17 08:40 Wound Culture - Final Left Foot Escherichia coli Consult Discharge Plan - Plan Additional Instructions: Please see Dr. Tejada on Thursday Also f/u with Wound care closely Need daily dressing change Referrals: Samuel Tejada DPM [Partnered Physician] - 06/26/17 11:00 am NONE,PCP [Non-Partnered Physician] - Prescriptions: Amoxicillin/Clavulanate [Augmentin] 875 mg PO BIDWM #14 tablet Lactobacillus Acidophilus [Acidophilus Lactobacilli] 1 each PO BID #30 capsule
== END 2017-06-22 16:35 | disposition home or self-care (01) | DRG 637 ==
LOC: EMEROO 14:51 → 3NENU 14:51
PROVIDERS: ADMIT Internal Medicine Hematology & Oncology; ATTEND Family Medicine

== ENCOUNTER 2020-04-20 09:38 | Inpatient (IN) ==
[2020-04-20] MEDS ORDERED: Naloxone 0.4 MG/ML INJ IVP PRN (13:15)
[2020-04-20] MEDS ORDERED: D5% in 0.45% NACL 1,000 ML IVC PRN (13:15)
[2020-04-20] MEDS ORDERED: *HR* Dextrose 50 % in Water (Vial) 50 ML VIAL IVP PRN (13:15)
[2020-04-20] MEDS ORDERED: Acetaminophen 325 MG TABLET PO PRN (13:15)
[2020-04-20] MEDS ORDERED: Insulin Human Regular 100 UNIT in 0.9 % Sodium Chloride 100 ML IVC SCH (13:30)
[2020-04-20 13:51] LABS: INR 1.7
[2020-04-20 13:54] LABS: Activated Partial Thrombo Time 32.3 Seconds (26.0-36.0)
[2020-04-20 14:02] LABS: Albumin 2.6 g/dL (3.5-5.7); Albumin/Globulin Ratio 0.7 (1.1-2.2); Bilirubin,Direct 1.7 mg/dL (0.0-0.2); Bilirubin,Indirect 0.7 mg/dL (0.0-1.0); Bilirubin,Total 2.4 mg/dL (0.3-1.0); Calcium 8.6 mg/dL (8.6-10.3); Globulin 3.6 g/dL (2.4-3.5); Magnesium 2.1 mg/dL (1.6-2.6); Potassium 5.3 mEq/L (3.5-5.1); Total Protein 6.2 g/dL (6.4-8.9)
[2020-04-20 14:13] LABS: Troponin I 0.04 ng/mL (< 0.04)
[2020-04-20] MEDS: Cefepime HCl 2,000 MG in Water for inj. (sterile) 20 ML IVP SCH (14:19)
[2020-04-20 14:41] LABS: Adenovirus Not Detected (Not Detect); Bordetella Pertussis Not Detected (Not Detect); Chlamydophila pneumoniae Not Detected (Not Detect); Coronavirus 229E Not Detected (Not Detect); Coronavirus HKU1 Not Detected (Not Detect); Coronavirus NL63 Not Detected (Not Detect); Coronavirus OC43 Not Detected (Not Detect); Human Metapneumovirus Not Detected (Not Detect); Human Rhinovirus/Enterovirus Not Detected (Not Detect); Influenza A Subtype 2009 H1 Not Detected (Not Detect); Influenza B Not Detected (Not Detect); Mycoplasma pneumoniae Not Detected (Not Detect); Parainfluenza Virus 1 Not Detected (Not Detect); Parainfluenza Virus 2 Not Detected (Not Detect); Parainfluenza Virus 3 Not Detected (Not Detect); Parainfluenza Virus 4 Not Detected (Not Detect); Respiratory Syncytial Virus Not Detected (Not Detect); SARS-CoV-2 Not Detected (Not Detect)
[2020-04-20 14:49] LABS: Mean Corpuscular HGB Conc 30.9 g/dL (31.6-35.5)
[2020-04-20 14:51] LABS: Hematocrit 35.3 % (37.5-50.1); Hemoglobin 10.9 g/dL (12.9-16.9); Mean Platelet Volume 9.8 fL (9.4-12.4); Nucleated Red Blood Cells 1.1 /100 WBC (0); Platelet Count 271 K/mcL (140-400); Red Cell Distribution Width 16.5 % (11.5-14.5)
[2020-04-20 14:54] LABS: White Blood Count 34.6 K/mcL (4.3-11.1)
[2020-04-20 14:57] LABS: VBG Ionized Calcium 1.13 mmol/L (1.15-1.35)
[2020-04-20 14:57] LABS: Hepatitis B Surface Antigen Nonreactive (Nonreactive)
[2020-04-20 15:07] LABS: Lymphocytes # 0.7 K/mcL (0.6-4.6); Monocytes # 3.5 K/mcL (0.0-1.3); Neutrophils # 29.1 K/mcL (1.6-8.9)
[2020-04-20 15:08] LABS: Platelet Estimate Normal (Normal)
[2020-04-20 15:26] LABS: Hepatitis C Virus Antibody Nonreactive (Nonreactive)
[2020-04-20 15:27] LABS: Hepatitis B Core IgM Nonreactive (Nonreactive)
[2020-04-20 15:28] LABS: Hepatitis A Antibody IgM Nonreactive (Nonreactive)
[2020-04-20] MEDS ORDERED: Albumin 25% 25gram/100mL 25 GM/100 ML IV.SOLN IVC ONE (15:47)
[2020-04-20] MEDS: 0.9 % Sodium Chloride 1,000 ML IVC SCH ×2 (16:00→17:00)
[2020-04-20] MEDS: MetroNIDAZOLE 500 MG/100 ML 500 MG/100 ML BAG IVPB SCH (17:12)
[2020-04-20 17:28] LABS: RBC,Peritoneal Fluid 10000 RBC/mcL
[2020-04-20 17:38] LABS: Amylase,Peritoneal Fluid < 10 Units/L (No Ref Range); Glucose,Peritoneal Fluid 149 mg/dL (No Ref Range); LDH,Peritoneal Fluid 502 Units/L (No Ref Range); Total Protein,Peritoneal Fluid 3.2 g/dL
[2020-04-20 17:52] LABS: ABG Base Excess -12 mEq/L (-2 to 3); ABG HCO3 13 mEq/L (21-27); ABG Oxygen Saturation 96 % (95-98); ABG PCO2 26 mmHg (35-45); ABG PH 7.31 pH Units (7.32-7.45); ABG PO2 90 mmHg (85-104); ABG TCO2 14 mEq/L (20-26)
[2020-04-20 18:02] LABS: VBG Ionized Calcium 1.06 mmol/L (1.15-1.35)
[2020-04-20] MEDS: Albumin 25% 25gram/100mL 25 GM/100 ML IV.SOLN IVC SCH ×2 (18:08→20:27)
[2020-04-20 18:11] LABS: Calcium 8.4 mg/dL (8.6-10.3); Phosphorous 5.2 mg/dL (2.7-4.5)
[2020-04-20 18:16] LABS: Appearance of Peritoneal Fl HAZY (Clear)
[2020-04-20] MEDS ORDERED: 0.45 % Sodium Chloride w/KCl 20 MEQ/1,000 ML MLS IVC SCH (20:30)
[2020-04-20] MEDS: D5% in 0.45% NACL w KCl 20 MEQ/1,000 ML MLS IVC PRN (20:51)
[2020-04-20] MEDS: Insulin Human Regular 100 UNIT in 0.9 % Sodium Chloride 100 ML IVC SCH (22:00)
[2020-04-20 22:12] LABS: Troponin I 0.03 ng/mL (< 0.04)
[2020-04-20 22:30] LABS: Calcium 8.3 mg/dL (8.6-10.3); Potassium 4.5 mEq/L (3.5-5.1)
[2020-04-21 00:24] LABS: Bilirubin,Urine Negative (Negative); Blood,Urine Trace (Negative); Clarity,Urine Turbid (Clear); Color,Urine Yellow (Yellow); Glucose,Urine (UA) Normal (Normal); Hyaline Casts,Urine Few per lpf (None Seen); Ketones,Urine Trace mg/dL (Negative); Leukocyte Esterase,Urine Negative (Negative); Mucus,Urine Few per lpf (None-Few); Nitrite,Urine Negative (Negative); Protein,Urine 50 mg/dL (Neg-Trace); RBC,Urine 0-3 per hpf (0-3); Specific Gravity,Urine > 1.030 (1.010-1.025); Squamous Epithelial Cell,Urine Few per hpf (None-Few); Urobilinogen,Urine Normal (Normal); WBC,Urine 0-3 per hpf (0-3)
[2020-04-21 00:36] LABS: Creatinine,Urine 147 mg/dL; Protein/Creatinine Ratio,Urine 0.83 mg/mg (0.00-0.20); Sodium, Urine < 10.0 mEq/L
[2020-04-21] MEDS: D5% in 0.45% NACL w KCl 20 MEQ/1,000 ML MLS IVC PRN ×3 (01:00→10:11)
[2020-04-21] MEDS: MetroNIDAZOLE 500 MG/100 ML 500 MG/100 ML BAG IVPB SCH ×3 (01:21→17:06)
[2020-04-21] MEDS: Cefepime HCl 2,000 MG in Water for inj. (sterile) 20 ML IVP SCH ×2 (01:26→13:09)
[2020-04-21 01:50] LABS: VBG Ionized Calcium 1.14 mmol/L (1.15-1.35)
[2020-04-21 02:06] LABS: Calcium 8.3 mg/dL (8.6-10.3); Magnesium 2.2 mg/dL (1.6-2.6); Phosphorous 4.9 mg/dL (2.7-4.5); Potassium 4.8 mEq/L (3.5-5.1)
[2020-04-21] MEDS ORDERED: Sodium Bicarbonate 150 MEQ in D5% in Water 1,000 ML IVC SCH (03:00)
[2020-04-21 04:58] LABS: Hematocrit 26.5 % (37.5-50.1); Mean Corpuscular HGB Conc 30.6 g/dL (31.6-35.5); Mean Corpuscular Hemoglobin 25.4 pg (28.0-33.3); Mean Corpuscular Volume 83.1 fL (83.0-100.0); Mean Platelet Volume 9.2 fL (9.4-12.4); Nucleated Red Blood Cells 1.3 /100 WBC (0); Platelet Count 118 K/mcL (140-400); Red Blood Count 3.19 M/mcL (4.19-5.50); Red Cell Distribution Width 16.6 % (11.5-14.5)
[2020-04-21 05:19] LABS: Albumin 2.9 g/dL (3.5-5.7); Albumin/Globulin Ratio 1.1 (1.1-2.2); Bilirubin,Direct 1.2 mg/dL (0.0-0.2); Bilirubin,Indirect 0.6 mg/dL (0.0-1.0); Bilirubin,Total 1.8 mg/dL (0.3-1.0); Calcium 8.2 mg/dL (8.6-10.3); Globulin 2.7 g/dL (2.4-3.5); Magnesium 2.2 mg/dL (1.6-2.6); Phosphorous 4.9 mg/dL (2.7-4.5); Total Protein 5.6 g/dL (6.4-8.9)
[2020-04-21 05:22] LABS: INR 1.6; Prothrombin Time 18.7 Seconds (9.4-12.1)
[2020-04-21 05:30] LABS: Hemoglobin 8.1 g/dL (12.9-16.9); White Blood Count 14.1 K/mcL (4.3-11.1)
[2020-04-21 06:10] LABS: Lymphocytes # 1.4 K/mcL (0.6-4.6); Monocytes # 0.9 K/mcL (0.0-1.3); Neutrophils # 10.7 K/mcL (1.6-8.9)
[2020-04-21 06:11] LABS: Platelet Estimate Normal (Normal); Toxic Granulation Present (Not Present)
[2020-04-21] MEDS: Insulin Human Regular 100 UNIT in 0.9 % Sodium Chloride 100 ML IVC SCH (08:00)
[2020-04-21 08:35] LABS: VBG Ionized Calcium 1.09 mmol/L (1.15-1.35)
[2020-04-21 08:51] LABS: Magnesium 2.2 mg/dL (1.6-2.6); Phosphorous 4.5 mg/dL (2.7-4.5); Potassium 4.7 mEq/L (3.5-5.1)
[2020-04-21] MEDS ORDERED: *HR* OxyCODONE Immed Rel 5 MG TABLET PO PRN (11:23)
[2020-04-21] MEDS ORDERED: Insulin DETEMIR 100 UNIT/ML X5UNITS SQ SCH (11:45)
[2020-04-21] MEDS: Insulin LISPRO 300 UNITS/3 ML VIAL SQ SCH ×3 (12:25→18:11)
[2020-04-21] MEDS ORDERED: Albumin 25% 25gram/100mL 25 GM/100 ML IV.SOLN IVC SCH (15:30)
[2020-04-21] MEDS ORDERED: *HR* Dextrose 50 % in Water (Vial) 50 ML VIAL IVP PRN (16:38)
[2020-04-21] MEDS ORDERED: Naloxone 0.4 MG/ML INJ IVP PRN (16:38)
[2020-04-21] MEDS ORDERED: Acetaminophen 325 MG TABLET PO PRN (16:38)
[2020-04-21 16:44] LABS: ABG Ionized Calcium 1.14 mmol/L (1.15-1.35)
[2020-04-21] MEDS ORDERED: Perflutren Lipid Microsphere 1.3 ML in 0.9 % Sodium Chloride 8.7 ML IVP PRN (16:48)
[2020-04-21] MEDS: Albumin 25% 25gram/100mL 25 GM/100 ML IV.SOLN IVC SCH ×2 (16:56→19:00)
[2020-04-21 16:59] LABS: Calcium 8.4 mg/dL (8.6-10.3); Magnesium 2.2 mg/dL (1.6-2.6); Phosphorous 4.6 mg/dL (2.7-4.5); Potassium 5.1 mEq/L (3.5-5.1)
[2020-04-21] MEDS: *HR* OxyCODONE Immed Rel 5 MG TABLET PO PRN (17:58)
[2020-04-21 20:12] LABS: VBG Ionized Calcium 1.15 mmol/L (1.15-1.35)
[2020-04-21 20:32] LABS: Calcium 8.4 mg/dL (8.6-10.3); Magnesium 2.3 mg/dL (1.6-2.6); Phosphorous 4.3 mg/dL (2.7-4.5)
[2020-04-21] MEDS ORDERED: Morphine Sulfate ER (12 HR) 30 MG TABLET.ER PO SCH (21:00)
[2020-04-21] MEDS: Morphine Sulfate ER (12 HR) 30 MG TABLET.ER PO SCH (21:33)
[2020-04-21] MEDS: Insulin DETEMIR 100 UNIT/ML X5UNITS SQ SCH (21:33)
[2020-04-22] MEDS: Albumin 25% 25gram/100mL 25 GM/100 ML IV.SOLN IVC SCH ×2 (00:05→02:00)
[2020-04-22] MEDS: MetroNIDAZOLE 500 MG/100 ML 500 MG/100 ML BAG IVPB SCH ×3 (00:23→15:22)
[2020-04-22 02:41] LABS: VBG Ionized Calcium 1.14 mmol/L (1.15-1.35)
[2020-04-22 02:56] LABS: Calcium 8.2 mg/dL (8.6-10.3); Magnesium 2.2 mg/dL (1.6-2.6); Potassium 4.9 mEq/L (3.5-5.1)
[2020-04-22] MEDS ORDERED: Insulin LISPRO 300 UNITS/3 ML VIAL SQ SCH (07:30)
[2020-04-22] MEDS: Folic Acid 1 MG TABLET PO SCH (08:02)
[2020-04-22] MEDS: Cyanocobalamin (B-12) 1,000 MCG TABLET PO SCH (08:03)
[2020-04-22] MEDS: Cefepime HCl 2,000 MG in Water for inj. (sterile) 20 ML IVP SCH (08:03)
[2020-04-22] MEDS: Aspirin Enteric Coated 81 MG Tablet PO SCH (08:03)
[2020-04-22] MEDS: (Liraglutide [Victoza 2-Pak] 1.8 MG) SQ SCH (08:07)
[2020-04-22] MEDS: Insulin DETEMIR 100 UNIT/ML X5UNITS SQ SCH ×2 (08:07→21:24)
[2020-04-22] MEDS: Multivit/Ca/Min/Fe/FA 1 TAB TABLET PO SCH (08:08)
[2020-04-22] MEDS: Insulin LISPRO 300 UNITS/3 ML VIAL SQ SCH ×3 (08:23→17:23)
[2020-04-22] MEDS: *HR* OxyCODONE Immed Rel 5 MG TABLET PO PRN ×2 (08:23→13:39)
[2020-04-22] MEDS ORDERED: Folic Acid 1 MG TABLET PO SCH (09:00)
[2020-04-22] MEDS ORDERED: Aspirin Enteric Coated 81 MG Tablet PO SCH (09:00)
[2020-04-22] MEDS ORDERED: Cefepime HCl 2,000 MG in Water for inj. (sterile) 20 ML IVP SCH (09:00)
[2020-04-22] MEDS ORDERED: (Liraglutide [Victoza 2-Pak] 1.8 MG) SQ SCH (09:00)
[2020-04-22] MEDS ORDERED: Multivit/Ca/Min/Fe/FA 1 TAB TABLET PO SCH (09:00)
[2020-04-22] MEDS ORDERED: Cyanocobalamin (B-12) 1,000 MCG TABLET PO SCH (09:00)
[2020-04-22] MEDS ORDERED: Nicotine 2 MG GUM BC PRN (09:17)
[2020-04-22 09:54] LABS: Hemoglobin 8.5 g/dL (12.9-16.9); Mean Corpuscular HGB Conc 31.5 g/dL (31.6-35.5); Mean Corpuscular Hemoglobin 25.9 pg (28.0-33.3); Mean Corpuscular Volume 82.3 fL (83.0-100.0); Platelet Count 107 K/mcL (140-400); Red Blood Count 3.28 M/mcL (4.19-5.50); Red Cell Distribution Width 16.9 % (11.5-14.5); White Blood Count 15.2 K/mcL (4.3-11.1)
[2020-04-22 09:55] LABS: VBG HCO3 13 mEq/L (21-27); VBG PCO2 29 mmHg (41-51); VBG PH 7.28 pH Units (7.32-7.42); VBG PO2 262 mmHg (25-50)
[2020-04-22 09:59] LABS: INR 1.7; Prothrombin Time 19.6 Seconds (9.4-12.1)
[2020-04-22 10:14] LABS: Albumin 3.5 g/dL (3.5-5.7); Albumin/Globulin Ratio 1.3 (1.1-2.2); Bilirubin,Direct 1.6 mg/dL (0.0-0.2); Bilirubin,Indirect 0.7 mg/dL (0.0-1.0); Bilirubin,Total 2.3 mg/dL (0.3-1.0); Calcium 8.3 mg/dL (8.6-10.3); Globulin 2.7 g/dL (2.4-3.5); Magnesium 2.4 mg/dL (1.6-2.6); Phosphorous 4.2 mg/dL (2.7-4.5); Potassium 4.6 mEq/L (3.5-5.1); Total Protein 6.2 g/dL (6.4-8.9)
[2020-04-22] MEDS: Nicotine 21 MG PATCH.TD24 TD SCH (10:15)
[2020-04-22] MEDS: Lactulose Oral Soln 20 GM/30 ML UDC PO SCH ×2 (14:04→21:24)
[2020-04-22] MEDS: *HR* Heparin 5,000 UNIT/ML VIAL SQ SCH ×2 (14:04→21:24)
[2020-04-22] MEDS: Albumin 25% 25gram/100mL 25 GM/100 ML IV.SOLN IVPB SCH (15:21)
[2020-04-22 16:15] LABS: Calcium 8.6 mg/dL (8.6-10.3); Potassium 4.6 mEq/L (3.5-5.1)
[2020-04-22] MEDS: Morphine Sulfate ER (12 HR) 30 MG TABLET.ER PO SCH (21:24)
[2020-04-23] MEDS: Albumin 25% 25gram/100mL 25 GM/100 ML IV.SOLN IVPB SCH ×2 (00:26→07:16)
[2020-04-23] MEDS: MetroNIDAZOLE 500 MG/100 ML 500 MG/100 ML BAG IVPB SCH ×2 (00:27→07:16)
[2020-04-23 04:56] LABS: Hemoglobin 8.1 g/dL (12.9-16.9); Red Cell Distribution Width 17.4 % (11.5-14.5)
[2020-04-23 04:58] LABS: Hematocrit 26.1 % (37.5-50.1); Immature Platelets 3.2 % (1.1-6.1); Mean Corpuscular Hemoglobin 25.8 pg (28.0-33.3); Mean Corpuscular Volume 83.1 fL (83.0-100.0); Mean Platelet Volume 9.8 fL (9.4-12.4); Red Blood Count 3.14 M/mcL (4.19-5.50); White Blood Count 13.3 K/mcL (4.3-11.1)
[2020-04-23 05:02] LABS: INR 1.8; Prothrombin Time 20.1 Seconds (9.4-12.1)
[2020-04-23 05:16] LABS: Albumin 3.5 g/dL (3.5-5.7); Albumin/Globulin Ratio 1.3 (1.1-2.2); Bilirubin,Direct 1.8 mg/dL (0.0-0.2); Bilirubin,Indirect 1.2 mg/dL (0.0-1.0); Calcium 8.4 mg/dL (8.6-10.3); Globulin 2.8 g/dL (2.4-3.5); Magnesium 2.5 mg/dL (1.6-2.6); Phosphorous 5.1 mg/dL (2.7-4.5); Potassium 5.5 mEq/L (3.5-5.1); Total Protein 6.3 g/dL (6.4-8.9)
[2020-04-23] MEDS: *HR* Heparin 5,000 UNIT/ML VIAL SQ SCH ×3 (05:37→20:05)
[2020-04-23] MEDS: Insulin LISPRO 300 UNITS/3 ML VIAL SQ SCH ×3 (10:28→17:13)
[2020-04-23] MEDS: Cefepime HCl 2,000 MG in Water for inj. (sterile) 20 ML IVP SCH (10:59)
[2020-04-23] MEDS: Cyanocobalamin (B-12) 1,000 MCG TABLET PO SCH (10:59)
[2020-04-23] MEDS: Lactulose Oral Soln 20 GM/30 ML UDC PO SCH ×3 (10:59→20:05)
[2020-04-23] MEDS: Multivit/Ca/Min/Fe/FA 1 TAB TABLET PO SCH (10:59)
[2020-04-23] MEDS: Insulin DETEMIR 100 UNIT/ML X5UNITS SQ SCH ×2 (11:00→20:05)
[2020-04-23] MEDS: Aspirin Enteric Coated 81 MG Tablet PO SCH (11:00)
[2020-04-23] MEDS: Nicotine 21 MG PATCH.TD24 TD SCH (11:00)
[2020-04-23] MEDS: Folic Acid 1 MG TABLET PO SCH (11:00)
[2020-04-23] MEDS: (Liraglutide [Victoza 2-Pak] 1.8 MG) SQ SCH (11:01)
[2020-04-23] MEDS: Morphine Sulfate ER (12 HR) 30 MG TABLET.ER PO SCH (20:05)
[2020-04-24] MEDS: *HR* OxyCODONE Immed Rel 5 MG TABLET PO PRN ×3 (00:33→16:18)
[2020-04-24] MEDS: *HR* Heparin 5,000 UNIT/ML VIAL SQ SCH ×3 (05:36→20:25)
[2020-04-24 07:11] LABS: Hematocrit 28.7 % (37.5-50.1); Hemoglobin 8.9 g/dL (12.9-16.9); Mean Corpuscular Hemoglobin 25.8 pg (28.0-33.3); Mean Corpuscular Volume 83.2 fL (83.0-100.0); Mean Platelet Volume 9.8 fL (9.4-12.4); Red Blood Count 3.45 M/mcL (4.19-5.50); Red Cell Distribution Width 17.9 % (11.5-14.5); White Blood Count 14.2 K/mcL (4.3-11.1)
[2020-04-24 07:12] LABS: Platelet Count 96 K/mcL (140-400)
[2020-04-24 07:14] LABS: INR 1.8; Prothrombin Time 20.7 Seconds (9.4-12.1)
[2020-04-24 07:29] LABS: Albumin 3.4 g/dL (3.5-5.7); Albumin/Globulin Ratio 1.2 (1.1-2.2); Bilirubin,Direct 1.7 mg/dL (0.0-0.2); Bilirubin,Total 2.7 mg/dL (0.3-1.0); Calcium 8.5 mg/dL (8.6-10.3); Globulin 2.9 g/dL (2.4-3.5); Magnesium 2.4 mg/dL (1.6-2.6); Potassium 4.7 mEq/L (3.5-5.1); Total Protein 6.3 g/dL (6.4-8.9)
[2020-04-24] MEDS: Insulin LISPRO 300 UNITS/3 ML VIAL SQ SCH ×3 (09:32→17:39)
[2020-04-24] MEDS: Lactulose Oral Soln 20 GM/30 ML UDC PO SCH ×4 (09:33→20:24)
[2020-04-24] MEDS: Aspirin Enteric Coated 81 MG Tablet PO SCH (09:33)
[2020-04-24] MEDS: Folic Acid 1 MG TABLET PO SCH (09:33)
[2020-04-24] MEDS: Cyanocobalamin (B-12) 1,000 MCG TABLET PO SCH (09:34)
[2020-04-24] MEDS: Multivit/Ca/Min/Fe/FA 1 TAB TABLET PO SCH (09:34)
[2020-04-24] MEDS: Nicotine 21 MG PATCH.TD24 TD SCH (09:34)
[2020-04-24] MEDS: Cefepime HCl 2,000 MG in Water for inj. (sterile) 20 ML IVP SCH (09:34)
[2020-04-24] MEDS: Insulin DETEMIR 100 UNIT/ML X5UNITS SQ SCH ×2 (09:41→20:25)
[2020-04-24] MEDS ORDERED: Piperacillin/Tazobactam 3.375 GM in 0.9 % Sodium Chloride Mini Bag 100 ML IVPB ONE (11:27)
[2020-04-24] MEDS: Piperacillin/Tazobactam 3.375 GM in 0.9 % Sodium Chloride Mini Bag 100 ML IVPB SCH (17:36)
[2020-04-24 18:25] LABS: Fluid Source for Albumin PERITON/ASCITES
[2020-04-24] MEDS: Morphine Sulfate ER (12 HR) 30 MG TABLET.ER PO SCH (20:24)
[2020-04-25] MEDS: Piperacillin/Tazobactam 3.375 GM in 0.9 % Sodium Chloride Mini Bag 100 ML IVPB SCH ×2 (00:05→07:42)
[2020-04-25] MEDS: *HR* OxyCODONE Immed Rel 5 MG TABLET PO PRN ×2 (00:07→17:45)
[2020-04-25 05:29] LABS: Nucleated Red Blood Cells 0.2 /100 WBC (0)
[2020-04-25 05:31] LABS: Hemoglobin 8.7 g/dL (12.9-16.9); Immature Platelets 2.7 % (1.1-6.1); Lymphocytes # 0.7 K/mcL (0.6-4.6); Mean Corpuscular HGB Conc 32.2 g/dL (31.6-35.5); Mean Corpuscular Volume 83.9 fL (83.0-100.0); Mean Platelet Volume 10.5 fL (9.4-12.4); Red Blood Count 3.22 M/mcL (4.19-5.50); Red Cell Distribution Width 18.5 % (11.5-14.5); White Blood Count 12.4 K/mcL (4.3-11.1)
[2020-04-25 05:33] LABS: Platelet Count 99 K/mcL (140-400)
[2020-04-25] MEDS: *HR* Heparin 5,000 UNIT/ML VIAL SQ SCH ×3 (05:36→22:20)
[2020-04-25 05:39] LABS: INR 1.8; Prothrombin Time 20.4 Seconds (9.4-12.1)
[2020-04-25 05:48] LABS: Albumin 3.1 g/dL (3.5-5.7); Bilirubin,Direct 1.8 mg/dL (0.0-0.2); Bilirubin,Indirect 1.1 mg/dL (0.0-1.0); Bilirubin,Total 2.9 mg/dL (0.3-1.0); Calcium 8.5 mg/dL (8.6-10.3); Globulin 3.2 g/dL (2.4-3.5); Magnesium 2.2 mg/dL (1.6-2.6); Phosphorous 3.8 mg/dL (2.7-4.5); Potassium 4.2 mEq/L (3.5-5.1); Total Protein 6.3 g/dL (6.4-8.9)
[2020-04-25 06:12] LABS: Anisocytosis 1+ (Not Present); Neutrophils # 11.2 K/mcL (1.6-8.9); Platelet Estimate Slight Decrease (Normal)
[2020-04-25] MEDS: Nicotine 21 MG PATCH.TD24 TD SCH (07:40)
[2020-04-25] MEDS: Multivit/Ca/Min/Fe/FA 1 TAB TABLET PO SCH (07:41)
[2020-04-25] MEDS: Lactulose Oral Soln 20 GM/30 ML UDC PO SCH ×3 (07:41→20:49)
[2020-04-25] MEDS: Folic Acid 1 MG TABLET PO SCH (07:41)
[2020-04-25] MEDS: Cyanocobalamin (B-12) 1,000 MCG TABLET PO SCH (07:41)
[2020-04-25] MEDS: Aspirin Enteric Coated 81 MG Tablet PO SCH (07:41)
[2020-04-25] MEDS: Insulin LISPRO 300 UNITS/3 ML VIAL SQ SCH ×4 (07:41→20:51)
[2020-04-25] MEDS: Insulin DETEMIR 100 UNIT/ML X5UNITS SQ SCH ×2 (07:43→20:50)
[2020-04-25] MEDS ORDERED: *HR* Dextrose 50 % in Water (Vial) 50 ML VIAL IVP PRN (15:48)
[2020-04-25] MEDS ORDERED: Dextrose Gel 15 GM/37.5 ML TUBE PO PRN ×2 (15:48)
[2020-04-25] MEDS ORDERED: D5% in Water 1,000 ML IVC PRN (15:48)
[2020-04-25] MEDS ORDERED: cefTRIAXone 1,000 MG in 0.9 % Sodium Chloride Mini Bag 100 ML IVPB SCH (16:00)
[2020-04-25] MEDS: Morphine Sulfate ER (12 HR) 30 MG TABLET.ER PO SCH (20:49)
[2020-04-25] MEDS: Acetaminophen 325 MG TABLET PO PRN (22:26)
[2020-04-26] MEDS: *HR* OxyCODONE Immed Rel 5 MG TABLET PO PRN ×4 (04:02→21:41)
[2020-04-26] MEDS: *HR* Heparin 5,000 UNIT/ML VIAL SQ SCH ×3 (06:09→21:41)
[2020-04-26] MEDS: Insulin LISPRO 300 UNITS/3 ML VIAL SQ SCH ×4 (10:27→20:21)
[2020-04-26] MEDS: Aspirin Enteric Coated 81 MG Tablet PO SCH (10:27)
[2020-04-26] MEDS: Multivit/Ca/Min/Fe/FA 1 TAB TABLET PO SCH (10:27)
[2020-04-26] MEDS: Folic Acid 1 MG TABLET PO SCH (10:27)
[2020-04-26] MEDS: Lactulose Oral Soln 20 GM/30 ML UDC PO SCH ×3 (10:27→20:21)
[2020-04-26] MEDS: Cyanocobalamin (B-12) 1,000 MCG TABLET PO SCH (10:27)
[2020-04-26] MEDS: Nicotine 21 MG PATCH.TD24 TD SCH (10:28)
[2020-04-26 11:43] LABS: Hematocrit 29.3 % (37.5-50.1); Hemoglobin 9.4 g/dL (12.9-16.9); Mean Corpuscular HGB Conc 32.1 g/dL (31.6-35.5); Mean Corpuscular Volume 81.2 fL (83.0-100.0); Mean Platelet Volume 9.6 fL (9.4-12.4); Nucleated Red Blood Cells 0.2 /100 WBC (0); Platelet Count 118 K/mcL (140-400); Red Blood Count 3.61 M/mcL (4.19-5.50); Red Cell Distribution Width 19.1 % (11.5-14.5); White Blood Count 18.2 K/mcL (4.3-11.1)
[2020-04-26 11:47] LABS: INR 1.7; Prothrombin Time 19.1 Seconds (9.4-12.1)
[2020-04-26 12:02] LABS: Calcium 8.2 mg/dL (8.6-10.3); Potassium 4.5 mEq/L (3.5-5.1)
[2020-04-26 12:13] LABS: Eosinophils # 0.4 K/mcL (0.0-0.6); Lymphocytes # 0.7 K/mcL (0.6-4.6); Monocytes # 2.2 K/mcL (0.0-1.3); Neutrophils # 14.9 K/mcL (1.6-8.9); Platelet Estimate Slight Decrease (Normal)
[2020-04-26] MEDS: Insulin DETEMIR 100 UNIT/ML X5UNITS SQ SCH ×2 (12:49→20:22)
[2020-04-26] MEDS ORDERED: Furosemide 40 MG/4 ML VIAL IVP ONE (13:44)
[2020-04-26 14:43] LABS: Albumin/Globulin Ratio 0.9 (1.1-2.2); Bilirubin,Direct 1.4 mg/dL (0.0-0.2); Bilirubin,Total 2.4 mg/dL (0.3-1.0); Globulin 3.5 g/dL (2.4-3.5); Total Protein 6.5 g/dL (6.4-8.9)
[2020-04-26] MEDS: Piperacillin/Tazobactam 3.375 GM in 0.9 % Sodium Chloride Mini Bag 100 ML IVPB SCH (15:40)
[2020-04-26 16:44] LABS: RBC,Peritoneal Fluid 3000 RBC/mcL
[2020-04-26 16:49] LABS: Appearance of Peritoneal Fl HAZY (Clear)
[2020-04-26 18:32] LABS: Basophils,Peritoneal Fluid 0 %; Eosinophils,Peritoneal Fluid 0 %
[2020-04-26] MEDS: Acetaminophen 325 MG TABLET PO PRN (18:50)
[2020-04-26] MEDS: Albumin 25% 25gram/100mL 25 GM/100 ML IV.SOLN IVC SCH ×2 (20:20→22:14)
[2020-04-26] MEDS: Morphine Sulfate ER (12 HR) 30 MG TABLET.ER PO SCH (20:21)
[2020-04-27] MEDS: Piperacillin/Tazobactam 3.375 GM in 0.9 % Sodium Chloride Mini Bag 100 ML IVPB SCH ×3 (00:43→16:57)
[2020-04-27] MEDS: *HR* OxyCODONE Immed Rel 5 MG TABLET PO PRN ×3 (04:52→17:46)
[2020-04-27] MEDS: *HR* Heparin 5,000 UNIT/ML VIAL SQ SCH ×3 (05:51→22:23)
[2020-04-27] MEDS: Acetaminophen 325 MG TABLET PO PRN (06:29)
[2020-04-27 07:46] LABS: INR 1.7; Prothrombin Time 19.5 Seconds (9.4-12.1)
[2020-04-27 07:49] LABS: Basophils % 0.3 %; Eosinophils % 1.7 %; Hemoglobin 8.1 g/dL (12.9-16.9)
[2020-04-27 07:51] LABS: Eosinophils # 0.2 K/mcL (0.0-0.6); Hematocrit 25.6 % (37.5-50.1); Immature Granulocytes % 4.4 % (0-4); Immature Platelets 4.2 % (1.1-6.1); Lymphocytes # 0.9 K/mcL (0.6-4.6); Lymphocytes % 7.8 %; Mean Corpuscular HGB Conc 31.6 g/dL (31.6-35.5); Mean Corpuscular Hemoglobin 25.9 pg (28.0-33.3); Mean Corpuscular Volume 81.8 fL (83.0-100.0); Mean Platelet Volume 9.8 fL (9.4-12.4); Monocytes # 0.7 K/mcL (0.0-1.3); Monocytes % 6.3 %; Neutrophils # 9.1 K/mcL (1.6-8.9); Platelet Count 102 K/mcL (140-400); Red Blood Count 3.13 M/mcL (4.19-5.50); Red Cell Distribution Width 19.4 % (11.5-14.5); Segmented Neutrophils % 79.5 %; White Blood Count 11.5 K/mcL (4.3-11.1)
[2020-04-27 09:02] LABS: Calcium 8.5 mg/dL (8.6-10.3); Potassium 4.1 mEq/L (3.5-5.1)
[2020-04-27] MEDS: Insulin DETEMIR 100 UNIT/ML X5UNITS SQ SCH (09:32)
[2020-04-27] MEDS: Insulin LISPRO 300 UNITS/3 ML VIAL SQ SCH ×4 (09:35→22:23)
[2020-04-27] MEDS: Folic Acid 1 MG TABLET PO SCH (09:35)
[2020-04-27] MEDS: Multivit/Ca/Min/Fe/FA 1 TAB TABLET PO SCH (09:35)
[2020-04-27] MEDS: Aspirin Enteric Coated 81 MG Tablet PO SCH (09:36)
[2020-04-27] MEDS: Lactulose Oral Soln 20 GM/30 ML UDC PO SCH ×3 (09:36→22:22)
[2020-04-27] MEDS: Cyanocobalamin (B-12) 1,000 MCG TABLET PO SCH (09:36)
[2020-04-27] MEDS: Nicotine 21 MG PATCH.TD24 TD SCH (09:36)
[2020-04-27 12:07] LABS: Albumin/Globulin Ratio 0.9 (1.1-2.2); Bilirubin,Direct 1.2 mg/dL (0.0-0.2); Bilirubin,Total 2.2 mg/dL (0.3-1.0); Globulin 3.2 g/dL (2.4-3.5); Total Protein 6.2 g/dL (6.4-8.9)
[2020-04-27] MEDS ORDERED: *HR* LORazepam 2 MG/ML VIAL IVP ONE (21:41)
[2020-04-27] MEDS: Morphine Sulfate ER (12 HR) 30 MG TABLET.ER PO SCH (22:21)
[2020-04-28] MEDS: Piperacillin/Tazobactam 3.375 GM in 0.9 % Sodium Chloride Mini Bag 100 ML IVPB SCH ×4 (00:03→23:46)
[2020-04-28] MEDS: Insulin DETEMIR 100 UNIT/ML X5UNITS SQ SCH ×3 (00:04→21:13)
[2020-04-28] MEDS: *HR* Heparin 5,000 UNIT/ML VIAL SQ SCH ×2 (00:10→06:06)
[2020-04-28] MEDS: *HR* OxyCODONE Immed Rel 5 MG TABLET PO PRN ×5 (01:54→21:10)
[2020-04-28 05:23] LABS: Basophils % 0.3 %; Eosinophils # 0.2 K/mcL (0.0-0.6); Hemoglobin 8.6 g/dL (12.9-16.9); Immature Granulocytes % 2.4 % (0-4); Lymphocytes % 6.1 %; Mean Corpuscular HGB Conc 31.9 g/dL (31.6-35.5); Mean Corpuscular Hemoglobin 26.3 pg (28.0-33.3); Mean Corpuscular Volume 82.6 fL (83.0-100.0); Mean Platelet Volume 9.5 fL (9.4-12.4); Monocytes % 6.1 %; Neutrophils # 13.1 K/mcL (1.6-8.9); Platelet Count 140 K/mcL (140-400); Red Blood Count 3.27 M/mcL (4.19-5.50); Red Cell Distribution Width 19.9 % (11.5-14.5); Segmented Neutrophils % 84.1 %; White Blood Count 15.6 K/mcL (4.3-11.1)
[2020-04-28 05:25] LABS: INR 1.6; Prothrombin Time 18.1 Seconds (9.4-12.1)
[2020-04-28 05:38] LABS: Calcium 8.3 mg/dL (8.6-10.3); Potassium 4.1 mEq/L (3.5-5.1)
[2020-04-28] MEDS: Aspirin Enteric Coated 81 MG Tablet PO SCH (08:51)
[2020-04-28] MEDS: Pregabalin 75 MG CAPSULE PO SCH ×2 (08:51→21:10)
[2020-04-28] MEDS: Multivit/Ca/Min/Fe/FA 1 TAB TABLET PO SCH (08:51)
[2020-04-28] MEDS: Folic Acid 1 MG TABLET PO SCH (08:51)
[2020-04-28] MEDS: Lactulose Oral Soln 20 GM/30 ML UDC PO SCH ×3 (08:52→21:10)
[2020-04-28] MEDS: Cyanocobalamin (B-12) 1,000 MCG TABLET PO SCH (08:52)
[2020-04-28] MEDS: Nicotine 21 MG PATCH.TD24 TD SCH (08:52)
[2020-04-28] MEDS: Furosemide 40 MG/4 ML VIAL IVP SCH (08:52)
[2020-04-28] MEDS: Insulin LISPRO 300 UNITS/3 ML VIAL SQ SCH ×4 (08:53→21:13)
[2020-04-28] MEDS ORDERED: Furosemide 20 MG/2 ML VIAL IVP SCH (09:00)
[2020-04-28] MEDS: DAPTOmycin 500 MG in 0.9 % Sodium Chloride 100 ML IVPB SCH (11:48)
[2020-04-28] MEDS: Albumin 25% 12.5gm/50mL 12.5 GM/50 ML IV.SOLN IVPB SCH (17:10)
[2020-04-28] MEDS: Morphine Sulfate ER (12 HR) 30 MG TABLET.ER PO SCH (21:10)
[2020-04-29] MEDS: Albumin 25% 12.5gm/50mL 12.5 GM/50 ML IV.SOLN IVPB SCH ×2 (00:04→09:35)
[2020-04-29] MEDS: *HR* OxyCODONE Immed Rel 5 MG TABLET PO PRN ×6 (01:17→22:23)
[2020-04-29 09:02] LABS: Basophils % 0.2 %; Eosinophils # 0.2 K/mcL (0.0-0.6); Eosinophils % 1.3 %; Hematocrit 24.8 % (37.5-50.1); Hemoglobin 8.1 g/dL (12.9-16.9); Immature Granulocytes % 1.3 % (0-4); Lymphocytes # 0.9 K/mcL (0.6-4.6); Lymphocytes % 6.4 %; Mean Corpuscular HGB Conc 32.7 g/dL (31.6-35.5); Mean Corpuscular Hemoglobin 27.9 pg (28.0-33.3); Mean Corpuscular Volume 85.5 fL (83.0-100.0); Mean Platelet Volume 9.5 fL (9.4-12.4); Monocytes # 0.7 K/mcL (0.0-1.3); Neutrophils # 11.6 K/mcL (1.6-8.9); Platelet Count 138 K/mcL (140-400); Red Cell Distribution Width 20.6 % (11.5-14.5); Segmented Neutrophils % 85.8 %; White Blood Count 13.6 K/mcL (4.3-11.1)
[2020-04-29 09:21] LABS: Albumin 3.2 g/dL (3.5-5.7); Albumin/Globulin Ratio 0.9 (1.1-2.2); Bilirubin,Direct 0.8 mg/dL (0.0-0.2); Bilirubin,Indirect 0.9 mg/dL (0.0-1.0); Bilirubin,Total 1.7 mg/dL (0.3-1.0); Globulin 3.5 g/dL (2.4-3.5); Total Protein 6.7 g/dL (6.4-8.9)
[2020-04-29 09:23] LABS: BUN/Creatinine Ratio 23 (6-26); Blood Urea Nitrogen 34 mg/dL (8-23); Calcium 8.6 mg/dL (8.6-10.3); Carbon Dioxide 22 mEq/L (23-29); Chloride 99 mEq/L (98-107); Glucose 198 mg/dL (70-105); Osmolality,Calculated 279 (280-300); Potassium 4.1 mEq/L (3.5-5.1); Sodium 128 mEq/L (136-145); eGFR For African Americans > 60 (> 60); eGFR For Non-African Americans 50 (> 60)
[2020-04-29] MEDS: Piperacillin/Tazobactam 3.375 GM in 0.9 % Sodium Chloride Mini Bag 100 ML IVPB SCH ×3 (09:34→23:45)
[2020-04-29] MEDS: Furosemide 40 MG/4 ML VIAL IVP SCH (09:35)
[2020-04-29] MEDS: Lactulose Oral Soln 20 GM/30 ML UDC PO SCH ×3 (09:36→20:46)
[2020-04-29] MEDS: Insulin LISPRO 300 UNITS/3 ML VIAL SQ SCH ×4 (09:36→20:48)
[2020-04-29] MEDS: Nicotine 21 MG PATCH.TD24 TD SCH (09:36)
[2020-04-29] MEDS: Insulin DETEMIR 100 UNIT/ML X5UNITS SQ SCH ×2 (09:37→20:46)
[2020-04-29] MEDS: Pregabalin 75 MG CAPSULE PO SCH ×2 (09:37→20:46)
[2020-04-29] MEDS: Aspirin Enteric Coated 81 MG Tablet PO SCH (09:37)
[2020-04-29] MEDS: Multivit/Ca/Min/Fe/FA 1 TAB TABLET PO SCH (09:38)
[2020-04-29] MEDS: Folic Acid 1 MG TABLET PO SCH (09:38)
[2020-04-29] MEDS: Cyanocobalamin (B-12) 1,000 MCG TABLET PO SCH (09:38)
[2020-04-29] MEDS: DAPTOmycin 500 MG in 0.9 % Sodium Chloride 100 ML IVPB SCH (10:00)
[2020-04-29 10:08] LABS: % Iron Saturation 29 % (20-55); Iron 50 mcg/dL (65-175); Magnesium 1.7 mg/dL (1.6-2.6); Phosphorous 3.3 mg/dL (2.7-4.5); Transferrin 124 mg/dL (203-362)
[2020-04-29] MEDS ORDERED: Furosemide 40 MG/4 ML VIAL IVP ONE (11:07)
[2020-04-29] MEDS: Sennosides/Docusate Sodium TABLET PO SCH ×2 (12:21→22:23)
[2020-04-29] MEDS ORDERED: Lactulose Oral Soln 20 GM/30 ML UDC PO SCH (13:00)
[2020-04-29 14:06] LABS: Hepatitis B Surface Antigen Nonreactive (Nonreactive)
[2020-04-29 14:35] LABS: Hepatitis B Core IgM Nonreactive (Nonreactive); Hepatitis C Virus Antibody Nonreactive (Nonreactive)
[2020-04-29 14:37] LABS: Hepatitis A Antibody IgM Nonreactive (Nonreactive)
[2020-04-29] MEDS: Morphine Sulfate 2 MG/ML SYRINGE IVP PRN ×2 (19:31→23:39)
[2020-04-29] MEDS: Morphine Sulfate ER (12 HR) 30 MG TABLET.ER PO SCH (20:53)
[2020-04-29] MEDS ORDERED: Sennosides/Docusate Sodium TABLET PO SCH (21:00)
[2020-04-30] MEDS: *HR* OxyCODONE Immed Rel 5 MG TABLET PO PRN ×6 (02:47→23:12)
[2020-04-30] MEDS: Morphine Sulfate 2 MG/ML SYRINGE IVP PRN (06:20)
[2020-04-30 07:03] LABS: Basophils # 0.1 K/mcL (0.0-0.2); Basophils % 0.4 %; Eosinophils # 0.1 K/mcL (0.0-0.6); Eosinophils % 1.1 %; Hematocrit 24.5 % (37.5-50.1); Hemoglobin 7.5 g/dL (12.9-16.9); Immature Granulocytes % 0.7 % (0-4); Lymphocytes # 0.8 K/mcL (0.6-4.6); Lymphocytes % 7.1 %; Mean Corpuscular HGB Conc 30.6 g/dL (31.6-35.5); Mean Corpuscular Hemoglobin 27.3 pg (28.0-33.3); Mean Corpuscular Volume 89.1 fL (83.0-100.0); Mean Platelet Volume 8.8 fL (9.4-12.4); Monocytes # 0.7 K/mcL (0.0-1.3); Monocytes % 5.6 %; Neutrophils # 9.9 K/mcL (1.6-8.9); Platelet Count 152 K/mcL (140-400); Red Blood Count 2.75 M/mcL (4.19-5.50); Red Cell Distribution Width 20.9 % (11.5-14.5); Segmented Neutrophils % 85.1 %; White Blood Count 11.6 K/mcL (4.3-11.1)
[2020-04-30 07:22] LABS: Calcium 8.2 mg/dL (8.6-10.3)
[2020-04-30] MEDS: Insulin DETEMIR 100 UNIT/ML X5UNITS SQ SCH ×2 (08:45→20:46)
[2020-04-30] MEDS: Furosemide 40 MG/4 ML VIAL IVP SCH (08:45)
[2020-04-30] MEDS: Insulin LISPRO 300 UNITS/3 ML VIAL SQ SCH ×4 (08:45→20:51)
[2020-04-30] MEDS: Sennosides/Docusate Sodium TABLET PO SCH ×2 (08:45→20:45)
[2020-04-30] MEDS: Piperacillin/Tazobactam 3.375 GM in 0.9 % Sodium Chloride Mini Bag 100 ML IVPB SCH ×2 (08:46→17:59)
[2020-04-30] MEDS: Nicotine 21 MG PATCH.TD24 TD SCH (08:47)
[2020-04-30] MEDS: Aspirin Enteric Coated 81 MG Tablet PO SCH (08:48)
[2020-04-30] MEDS: Cyanocobalamin (B-12) 1,000 MCG TABLET PO SCH (08:48)
[2020-04-30] MEDS: Pregabalin 75 MG CAPSULE PO SCH ×2 (08:48→20:46)
[2020-04-30] MEDS: Multivit/Ca/Min/Fe/FA 1 TAB TABLET PO SCH (08:48)
[2020-04-30] MEDS: Lactulose Oral Soln 20 GM/30 ML UDC PO SCH ×3 (08:48→20:45)
[2020-04-30] MEDS: Folic Acid 1 MG TABLET PO SCH (08:48)
[2020-04-30] MEDS: DAPTOmycin 500 MG in 0.9 % Sodium Chloride 100 ML IVPB SCH (13:25)
[2020-04-30] MEDS: Albumin 25% 25gram/100mL 25 GM/100 ML IV.SOLN IVPB SCH (14:59)
[2020-04-30 15:02] LABS: Appearance of Body Fluid Cloudy (Clear); Volume of Body Fluid 50 mL
[2020-04-30 17:51] LABS: Hematocrit 22.9 % (37.5-50.1); Hemoglobin 7.2 g/dL (12.9-16.9)
[2020-04-30] MEDS: Morphine Sulfate ER (12 HR) 30 MG TABLET.ER PO SCH (20:45)
[2020-04-30] MEDS: *HR* LORazepam 0.5 MG TABLET PO PRN (20:56)
[2020-05-01] MEDS: Piperacillin/Tazobactam 3.375 GM in 0.9 % Sodium Chloride Mini Bag 100 ML IVPB SCH ×3 (01:23→15:24)
[2020-05-01] MEDS: Albumin 25% 25gram/100mL 25 GM/100 ML IV.SOLN IVPB SCH ×2 (03:58→13:30)
[2020-05-01] MEDS: *HR* OxyCODONE Immed Rel 5 MG TABLET PO PRN ×5 (04:05→21:36)
[2020-05-01] MEDS: Furosemide 40 MG/4 ML VIAL IVP SCH (08:11)
[2020-05-01] MEDS: Sennosides/Docusate Sodium TABLET PO SCH ×2 (08:11→20:36)
[2020-05-01] MEDS: Insulin LISPRO 300 UNITS/3 ML VIAL SQ SCH ×4 (08:11→20:46)
[2020-05-01] MEDS: Cyanocobalamin (B-12) 1,000 MCG TABLET PO SCH (08:12)
[2020-05-01] MEDS: Nicotine 21 MG PATCH.TD24 TD SCH (08:13)
[2020-05-01] MEDS: Lactulose Oral Soln 20 GM/30 ML UDC PO SCH ×3 (08:13→20:36)
[2020-05-01] MEDS: Multivit/Ca/Min/Fe/FA 1 TAB TABLET PO SCH (08:13)
[2020-05-01] MEDS: Folic Acid 1 MG TABLET PO SCH (08:15)
[2020-05-01] MEDS: Aspirin Enteric Coated 81 MG Tablet PO SCH (08:16)
[2020-05-01] MEDS: Pregabalin 75 MG CAPSULE PO SCH ×2 (08:20→20:36)
[2020-05-01] MEDS: Insulin DETEMIR 100 UNIT/ML X5UNITS SQ SCH ×2 (08:22→22:46)
[2020-05-01] MEDS ORDERED: Insulin DETEMIR 100 UNIT/ML X5UNITS SQ ONE (10:04)
[2020-05-01 10:26] LABS: Basophils % 0.4 %; Eosinophils # 0.2 K/mcL (0.0-0.6); Eosinophils % 1.4 %; Hematocrit 23.8 % (37.5-50.1); Hemoglobin 7.5 g/dL (12.9-16.9); Immature Granulocytes % 0.5 % (0-4); Lymphocytes # 0.8 K/mcL (0.6-4.6); Lymphocytes % 7.1 %; Mean Corpuscular HGB Conc 31.5 g/dL (31.6-35.5); Mean Corpuscular Hemoglobin 27.3 pg (28.0-33.3); Mean Corpuscular Volume 86.5 fL (83.0-100.0); Mean Platelet Volume 8.9 fL (9.4-12.4); Monocytes # 0.7 K/mcL (0.0-1.3); Monocytes % 6.3 %; Neutrophils # 9.2 K/mcL (1.6-8.9); Platelet Count 181 K/mcL (140-400); Red Blood Count 2.75 M/mcL (4.19-5.50); Red Cell Distribution Width 21.2 % (11.5-14.5); Segmented Neutrophils % 84.3 %; White Blood Count 10.9 K/mcL (4.3-11.1)
[2020-05-01 10:49] LABS: Calcium 8.4 mg/dL (8.6-10.3); Potassium 3.5 mEq/L (3.5-5.1)
[2020-05-01 10:50] LABS: Albumin 3.2 g/dL (3.5-5.7); Albumin/Globulin Ratio 0.9 (1.1-2.2); Bilirubin,Direct 0.7 mg/dL (0.0-0.2); Bilirubin,Indirect 0.9 mg/dL (0.0-1.0); Bilirubin,Total 1.6 mg/dL (0.3-1.0); Globulin 3.6 g/dL (2.4-3.5); Total Protein 6.8 g/dL (6.4-8.9)
[2020-05-01] MEDS: DAPTOmycin 500 MG in 0.9 % Sodium Chloride 100 ML IVPB SCH (11:07)
[2020-05-01] MEDS: Morphine Sulfate ER (12 HR) 30 MG TABLET.ER PO SCH (20:36)
[2020-05-01] MEDS: *HR* LORazepam 0.5 MG TABLET PO PRN (22:44)
[2020-05-01] MEDS: Morphine Sulfate 2 MG/ML SYRINGE IVP PRN (23:26)
[2020-05-02] MEDS: Piperacillin/Tazobactam 3.375 GM in 0.9 % Sodium Chloride Mini Bag 100 ML IVPB SCH ×4 (01:51→23:44)
[2020-05-02] MEDS: *HR* OxyCODONE Immed Rel 5 MG TABLET PO PRN ×6 (01:51→22:34)
[2020-05-02] MEDS: Albumin 25% 25gram/100mL 25 GM/100 ML IV.SOLN IVPB SCH ×2 (01:58→15:05)
[2020-05-02 06:02] LABS: Basophils % 0.5 %; Eosinophils # 0.1 K/mcL (0.0-0.6); Eosinophils % 1.6 %; Hematocrit 22.5 % (37.5-50.1); Hemoglobin 6.8 g/dL (12.9-16.9); Immature Granulocytes % 0.6 % (0-4); Lymphocytes # 0.8 K/mcL (0.6-4.6); Lymphocytes % 9.4 %; Mean Corpuscular HGB Conc 30.2 g/dL (31.6-35.5); Mean Corpuscular Hemoglobin 26.6 pg (28.0-33.3); Mean Corpuscular Volume 87.9 fL (83.0-100.0); Mean Platelet Volume 8.7 fL (9.4-12.4); Monocytes # 0.6 K/mcL (0.0-1.3); Monocytes % 6.5 %; Neutrophils # 6.9 K/mcL (1.6-8.9); Platelet Count 173 K/mcL (140-400); Red Blood Count 2.56 M/mcL (4.19-5.50); Red Cell Distribution Width 21.1 % (11.5-14.5); Segmented Neutrophils % 81.4 %; White Blood Count 8.5 K/mcL (4.3-11.1)
[2020-05-02 06:27] LABS: Albumin 3.1 g/dL (3.5-5.7); Albumin/Globulin Ratio 0.9 (1.1-2.2); Bilirubin,Direct 0.6 mg/dL (0.0-0.2); Bilirubin,Indirect 0.8 mg/dL (0.0-1.0); Bilirubin,Total 1.4 mg/dL (0.3-1.0); Calcium 8.3 mg/dL (8.6-10.3); Globulin 3.4 g/dL (2.4-3.5); Potassium 3.5 mEq/L (3.5-5.1); Total Protein 6.5 g/dL (6.4-8.9)
[2020-05-02] MEDS ORDERED: Iron Sucrose Complex 400 MG in 0.9 % Sodium Chloride 250 ML IVPB ONE (07:53)
[2020-05-02] MEDS: Insulin LISPRO 300 UNITS/3 ML VIAL SQ SCH ×4 (08:28→22:36)
[2020-05-02] MEDS: Lactulose Oral Soln 20 GM/30 ML UDC PO SCH ×3 (08:28→21:34)
[2020-05-02] MEDS: Nicotine 21 MG PATCH.TD24 TD SCH (08:28)
[2020-05-02] MEDS: Sennosides/Docusate Sodium TABLET PO SCH ×2 (08:29→21:33)
[2020-05-02] MEDS: Multivit/Ca/Min/Fe/FA 1 TAB TABLET PO SCH (08:29)
[2020-05-02] MEDS: Aspirin Enteric Coated 81 MG Tablet PO SCH (08:29)
[2020-05-02] MEDS: Furosemide 40 MG/4 ML VIAL IVP SCH (08:29)
[2020-05-02] MEDS: Folic Acid 1 MG TABLET PO SCH (08:30)
[2020-05-02] MEDS: Pregabalin 75 MG CAPSULE PO SCH ×2 (08:30→21:33)
[2020-05-02] MEDS: Cyanocobalamin (B-12) 1,000 MCG TABLET PO SCH (08:30)
[2020-05-02] MEDS: Insulin DETEMIR 100 UNIT/ML X5UNITS SQ SCH ×2 (08:30→21:34)
[2020-05-02] MEDS ORDERED: 0.9 % Sodium Chloride 250 ML ONE (08:51)
[2020-05-02] MEDS: DAPTOmycin 500 MG in 0.9 % Sodium Chloride 100 ML IVPB SCH (10:02)
[2020-05-02 13:09] LABS: AFP Tumor Marker Non-Pregnant 2 ng/mL (0-9)
[2020-05-02 13:17] LABS: ANA IgG by ELISA DETECTED (None Detected); Immunoglobulin A (CELIAC) 676 mg/dL (68-408)
[2020-05-02] MEDS: Pantoprazole 40 MG VIAL IVP SCH ×2 (14:16→23:45)
[2020-05-02] MEDS: Octreotide 400 MCG in 0.9 % Sodium Chloride 100 ML IVC SCH ×2 (14:17→21:35)
[2020-05-02 15:22] LABS: Hematocrit 25.4 % (37.5-50.1); Hemoglobin 8.1 g/dL (12.9-16.9)
[2020-05-02] MEDS: Morphine Sulfate ER (12 HR) 30 MG TABLET.ER PO SCH (21:33)
[2020-05-03] MEDS: *HR* OxyCODONE Immed Rel 5 MG TABLET PO PRN ×5 (03:11→20:02)
[2020-05-03] MEDS: Albumin 25% 25gram/100mL 25 GM/100 ML IV.SOLN IVPB SCH (04:00)
[2020-05-03 05:53] LABS: Hematocrit 29.4 % (37.5-50.1); Hemoglobin 9.1 g/dL (12.9-16.9); Mean Corpuscular Hemoglobin 27.2 pg (28.0-33.3); Platelet Count 214 K/mcL (140-400); Red Blood Count 3.34 M/mcL (4.19-5.50)
[2020-05-03 05:58] LABS: White Blood Count 14.5 K/mcL (4.3-11.1)
[2020-05-03 05:59] LABS: INR 1.5; Prothrombin Time 17.6 Seconds (9.4-12.1)
[2020-05-03 06:05] LABS: Albumin 3.4 g/dL (3.5-5.7); Albumin/Globulin Ratio 0.9 (1.1-2.2); Bilirubin,Direct 0.7 mg/dL (0.0-0.2); Bilirubin,Indirect 1.1 mg/dL (0.0-1.0); Bilirubin,Total 1.8 mg/dL (0.3-1.0); Globulin 3.9 g/dL (2.4-3.5); Total Protein 7.3 g/dL (6.4-8.9)
[2020-05-03 06:06] LABS: Calcium 8.8 mg/dL (8.6-10.3); Potassium 4.1 mEq/L (3.5-5.1)
[2020-05-03] MEDS: Octreotide 400 MCG in 0.9 % Sodium Chloride 100 ML IVC SCH ×2 (06:07→08:45)
[2020-05-03] MEDS: Piperacillin/Tazobactam 3.375 GM in 0.9 % Sodium Chloride Mini Bag 100 ML IVPB SCH ×2 (07:09→15:19)
[2020-05-03] MEDS: Insulin LISPRO 300 UNITS/3 ML VIAL SQ SCH ×4 (07:15→21:48)
[2020-05-03] MEDS: Lactulose Oral Soln 20 GM/30 ML UDC PO SCH ×3 (08:55→21:46)
[2020-05-03] MEDS: Nicotine 21 MG PATCH.TD24 TD SCH (08:55)
[2020-05-03] MEDS: Furosemide 40 MG/4 ML VIAL IVP SCH (08:56)
[2020-05-03] MEDS: Folic Acid 1 MG TABLET PO SCH (08:56)
[2020-05-03] MEDS: Cyanocobalamin (B-12) 1,000 MCG TABLET PO SCH (08:56)
[2020-05-03] MEDS: Pregabalin 75 MG CAPSULE PO SCH ×2 (08:56→21:46)
[2020-05-03] MEDS: Sennosides/Docusate Sodium TABLET PO SCH ×2 (08:56→21:45)
[2020-05-03] MEDS: Multivit/Ca/Min/Fe/FA 1 TAB TABLET PO SCH (08:56)
[2020-05-03] MEDS: Aspirin Enteric Coated 81 MG Tablet PO SCH (08:56)
[2020-05-03] MEDS: Insulin DETEMIR 100 UNIT/ML X5UNITS SQ SCH ×2 (08:59→21:46)
[2020-05-03 10:40] LABS: Smooth Muscle Ab Titer IgG 1:20 (<1:20)
[2020-05-03 10:51] LABS: Tissue Transglutaminase IgA 53 U/mL (0-3)
[2020-05-03] MEDS: DAPTOmycin 500 MG in 0.9 % Sodium Chloride 100 ML IVPB SCH (11:20)
[2020-05-03 13:49] LABS: Adenovirus Not Detected (Not Detect); Coronavirus 229E Not Detected (Not Detect); Coronavirus HKU1 Not Detected (Not Detect); Coronavirus NL63 Not Detected (Not Detect); Coronavirus OC43 Not Detected (Not Detect)
[2020-05-03 13:50] LABS: Bordetella Pertussis Not Detected (Not Detect); Chlamydophila pneumoniae Not Detected (Not Detect); Human Metapneumovirus Not Detected (Not Detect); Human Rhinovirus/Enterovirus Not Detected (Not Detect); Influenza A Subtype 2009 H1 Not Detected (Not Detect); Influenza B Not Detected (Not Detect); Mycoplasma pneumoniae Not Detected (Not Detect); Parainfluenza Virus 1 Not Detected (Not Detect); Parainfluenza Virus 2 Not Detected (Not Detect); Parainfluenza Virus 3 Not Detected (Not Detect); Parainfluenza Virus 4 Not Detected (Not Detect); Respiratory Syncytial Virus Not Detected (Not Detect); SARS-CoV-2 Not Detected (Not Detect)
[2020-05-03 14:51] LABS: ANA HEp-2 IgG IFA <1:80 (<1:80)
[2020-05-03 15:05] LABS: Appearance of Peritoneal Fl CLOUDY (Clear)
[2020-05-03 15:12] LABS: Basophils,Peritoneal Fluid 0 %; Eosinophils,Peritoneal Fluid 0 %
[2020-05-03] MEDS: Pantoprazole 40 MG VIAL IVP SCH (15:26)
[2020-05-03] MEDS ORDERED: Bumetanide 1 MG/4 ML VIAL IVP SCH (17:00)
[2020-05-03] MEDS: Morphine Sulfate ER (12 HR) 30 MG TABLET.ER PO SCH (21:46)
[2020-05-04] MEDS: Piperacillin/Tazobactam 3.375 GM in 0.9 % Sodium Chloride Mini Bag 100 ML IVPB SCH (00:14)
[2020-05-04] MEDS: *HR* OxyCODONE Immed Rel 5 MG TABLET PO PRN ×3 (00:15→18:07)
[2020-05-04] MEDS: Octreotide 400 MCG in 0.9 % Sodium Chloride 100 ML IVC SCH (00:17)
[2020-05-04] MEDS: Pantoprazole 40 MG VIAL IVP SCH (03:49)
[2020-05-04 04:54] LABS: Basophils # 0.1 K/mcL (0.0-0.2); Basophils % 0.7 %; Eosinophils # 0.1 K/mcL (0.0-0.6); Eosinophils % 1.3 %; Hematocrit 25.8 % (37.5-50.1); Hemoglobin 7.9 g/dL (12.9-16.9); Immature Granulocytes % 0.8 % (0-4); Lymphocytes # 0.9 K/mcL (0.6-4.6); Lymphocytes % 8.6 %; Mean Corpuscular HGB Conc 30.6 g/dL (31.6-35.5); Mean Corpuscular Hemoglobin 27.1 pg (28.0-33.3); Mean Corpuscular Volume 88.7 fL (83.0-100.0); Mean Platelet Volume 9.2 fL (9.4-12.4); Monocytes # 0.9 K/mcL (0.0-1.3); Monocytes % 8.2 %; Neutrophils # 8.4 K/mcL (1.6-8.9); Platelet Count 168 K/mcL (140-400); Red Blood Count 2.91 M/mcL (4.19-5.50); Red Cell Distribution Width 21.5 % (11.5-14.5); Segmented Neutrophils % 80.4 %; White Blood Count 10.5 K/mcL (4.3-11.1)
[2020-05-04 05:01] LABS: Albumin 2.8 g/dL (3.5-5.7); Albumin/Globulin Ratio 0.8 (1.1-2.2); Bilirubin,Direct 0.7 mg/dL (0.0-0.2); Bilirubin,Total 1.7 mg/dL (0.3-1.0); Globulin 3.5 g/dL (2.4-3.5); Total Protein 6.3 g/dL (6.4-8.9)
[2020-05-04 05:04] LABS: Albumin 2.9 g/dL (3.5-5.7); Albumin/Globulin Ratio 0.8 (1.1-2.2); Bilirubin,Total 1.6 mg/dL (0.3-1.0); Calcium 8.2 mg/dL (8.6-10.3); Globulin 3.5 g/dL (2.4-3.5); Potassium 4.2 mEq/L (3.5-5.1); Total Protein 6.4 g/dL (6.4-8.9)
[2020-05-04] MEDS: Insulin LISPRO 300 UNITS/3 ML VIAL SQ SCH ×4 (07:56→21:35)
[2020-05-04] MEDS: cefTRIAXone 2,000 MG in Water for inj. (sterile) 20 ML IVP SCH (08:56)
[2020-05-04] MEDS: Sennosides/Docusate Sodium TABLET PO SCH ×2 (08:57→21:34)
[2020-05-04] MEDS: Pregabalin 75 MG CAPSULE PO SCH ×2 (08:57→21:34)
[2020-05-04] MEDS: Lactulose Oral Soln 20 GM/30 ML UDC PO SCH ×3 (08:57→21:33)
[2020-05-04] MEDS: Aspirin Enteric Coated 81 MG Tablet PO SCH (08:57)
[2020-05-04] MEDS: Folic Acid 1 MG TABLET PO SCH (08:58)
[2020-05-04] MEDS: Multivit/Ca/Min/Fe/FA 1 TAB TABLET PO SCH (08:58)
[2020-05-04] MEDS: metroNIDAZOLE 500 MG TABLET PO SCH ×3 (08:58→21:33)
[2020-05-04] MEDS: Nicotine 21 MG PATCH.TD24 TD SCH (08:59)
[2020-05-04] MEDS: Insulin DETEMIR 100 UNIT/ML X5UNITS SQ SCH ×2 (08:59→21:37)
[2020-05-04] MEDS: Cyanocobalamin (B-12) 1,000 MCG TABLET PO SCH (08:59)
[2020-05-04] MEDS ORDERED: Bumetanide 1 MG/4 ML VIAL IVP SCH (09:00)
[2020-05-04] MEDS: Albumin 25% 25gram/100mL 25 GM/100 ML IV.SOLN IVPB SCH ×2 (09:00→21:32)
[2020-05-04] MEDS ORDERED: Lidocaine -MPF 2% 2 ML VIAL ONE ×2 (10:21→10:47)
[2020-05-04] MEDS ORDERED: *HR* Propofol 200 MG/20 ML VIAL IVP ONE (10:21)
[2020-05-04 10:31] LABS: Liver-Kidney Microsome-1 IgG 1.1 U (0.0-24.9)
[2020-05-04] MEDS: Bumetanide 1 MG/4 ML VIAL IVP SCH (15:04)
[2020-05-04] MEDS: Morphine Sulfate ER (12 HR) 30 MG TABLET.ER PO SCH (21:34)
[2020-05-05] MEDS: *HR* OxyCODONE Immed Rel 5 MG TABLET PO PRN ×5 (03:54→20:43)
[2020-05-05 06:15] LABS: Albumin/Globulin Ratio 0.8 (1.1-2.2); Bilirubin,Direct 0.6 mg/dL (0.0-0.2); Bilirubin,Indirect 0.7 mg/dL (0.0-1.0); Bilirubin,Total 1.3 mg/dL (0.3-1.0); Globulin 3.6 g/dL (2.4-3.5); Total Protein 6.6 g/dL (6.4-8.9)
[2020-05-05] MEDS: Insulin LISPRO 300 UNITS/3 ML VIAL SQ SCH ×4 (08:00→20:45)
[2020-05-05] MEDS: Pregabalin 75 MG CAPSULE PO SCH ×2 (08:01→20:45)
[2020-05-05] MEDS: Sennosides/Docusate Sodium TABLET PO SCH ×2 (08:01→20:44)
[2020-05-05] MEDS: cefTRIAXone 2,000 MG in Water for inj. (sterile) 20 ML IVP SCH (08:04)
[2020-05-05] MEDS: Folic Acid 1 MG TABLET PO SCH (08:04)
[2020-05-05] MEDS: Cyanocobalamin (B-12) 1,000 MCG TABLET PO SCH (08:04)
[2020-05-05] MEDS: Multivit/Ca/Min/Fe/FA 1 TAB TABLET PO SCH (08:04)
[2020-05-05] MEDS: Aspirin Enteric Coated 81 MG Tablet PO SCH (08:04)
[2020-05-05] MEDS: metroNIDAZOLE 500 MG TABLET PO SCH ×3 (08:04→20:45)
[2020-05-05] MEDS: Lactulose Oral Soln 20 GM/30 ML UDC PO SCH ×3 (08:04→20:45)
[2020-05-05] MEDS: Nicotine 21 MG PATCH.TD24 TD SCH (08:05)
[2020-05-05] MEDS: Albumin 25% 25gram/100mL 25 GM/100 ML IV.SOLN IVPB SCH ×2 (08:06→21:38)
[2020-05-05] MEDS: Insulin DETEMIR 100 UNIT/ML X5UNITS SQ SCH ×2 (08:08→20:46)
[2020-05-05 10:03] LABS: Basophils % 0.6 %; Eosinophils # 0.1 K/mcL (0.0-0.6); Eosinophils % 1.9 %; Hematocrit 24.8 % (37.5-50.1); Hemoglobin 7.5 g/dL (12.9-16.9); Immature Granulocytes % 0.4 % (0-4); Lymphocytes # 0.7 K/mcL (0.6-4.6); Lymphocytes % 9.4 %; Mean Corpuscular HGB Conc 30.2 g/dL (31.6-35.5); Mean Corpuscular Hemoglobin 27.2 pg (28.0-33.3); Mean Corpuscular Volume 89.9 fL (83.0-100.0); Mean Platelet Volume 8.8 fL (9.4-12.4); Monocytes # 0.5 K/mcL (0.0-1.3); Monocytes % 7.6 %; Neutrophils # 5.6 K/mcL (1.6-8.9); Platelet Count 141 K/mcL (140-400); Red Blood Count 2.76 M/mcL (4.19-5.50); Red Cell Distribution Width 21.6 % (11.5-14.5); Segmented Neutrophils % 80.1 %
[2020-05-05 10:21] LABS: Calcium 8.3 mg/dL (8.6-10.3); Potassium 3.4 mEq/L (3.5-5.1)
[2020-05-05] MEDS: Bumetanide 1 MG/4 ML VIAL IVP SCH (12:28)
[2020-05-05] MEDS: Morphine Sulfate ER (12 HR) 30 MG TABLET.ER PO SCH (20:44)
[2020-05-05 23:06] VITALS: BP 116/60
== END 2020-05-05 23:30 | disposition short-term general hospital (02) | DRG 871 ==
LOC: ICNU → SUATTDRO 13:15 → 3ANU 04-21 16:41
PROVIDERS: ADMIT Pediatrics; ATTEND Internal Medicine
PROC: IRDRAIN (2020-04-30 11:00)

== ENCOUNTER 2020-07-17 12:09 | Observation (INO) ==
[2020-07-17] MEDS ORDERED: Isovue-370 500 ML BOTTLE IVP ONE (12:28)
[2020-07-17 13:00] LABS: Basophils # 0.1 K/mcL (0.0-0.2); Basophils % 1.4 %; Eosinophils # 0.3 K/mcL (0.0-0.6); Eosinophils % 6.4 %; Hematocrit 31.1 % (37.5-50.1); Immature Granulocytes % 0.2 % (0-4); Lymphocytes # 0.8 K/mcL (0.6-4.6); Lymphocytes % 15.1 %; Mean Corpuscular HGB Conc 32.2 g/dL (31.6-35.5); Mean Corpuscular Hemoglobin 28.8 pg (28.0-33.3); Mean Corpuscular Volume 89.6 fL (83.0-100.0); Mean Platelet Volume 9.4 fL (9.4-12.4); Monocytes # 0.4 K/mcL (0.0-1.3); Neutrophils # 3.6 K/mcL (1.6-8.9); Platelet Count 107 K/mcL (140-400); Red Blood Count 3.47 M/mcL (4.19-5.50); Red Cell Distribution Width 15.5 % (11.5-14.5); Segmented Neutrophils % 69.9 %; White Blood Count 5.2 K/mcL (4.3-11.1)
[2020-07-17 13:15] LABS: INR 1.4; Prothrombin Time 15.6 Seconds (9.4-12.1)
[2020-07-17 13:17] LABS: Activated Partial Thrombo Time 28.7 Seconds (26.0-36.0)
[2020-07-17] MEDS ORDERED: Lactulose Oral Soln 20 GM/30 ML UDC PO ONE (13:55)
[2020-07-17 13:58] LABS: Alanine Aminotransferase 27 Units/L (7-52); Albumin 3.4 g/dL (3.5-5.7); Albumin/Globulin Ratio 0.6 (1.1-2.2); Alkaline Phosphatase 110 Units/L (34-104); Aspartate Amino Transferase 45 Units/L (13-39); BUN/Creatinine Ratio 17 (6-26); Bilirubin,Direct 0.4 mg/dL (0.0-0.2); Bilirubin,Indirect 0.7 mg/dL (0.0-1.0); Bilirubin,Total 1.1 mg/dL (0.3-1.0); Blood Urea Nitrogen 22 mg/dL (8-23); Calcium 9.5 mg/dL (8.6-10.3); Carbon Dioxide 22 mEq/L (23-29); Chloride 102 mEq/L (98-107); Creatine Kinase 235 Units/L (30-223); Ethanol < 10 mg/dL (Less than 10); Globulin 5.7 g/dL (2.4-3.5); Glucose 228 mg/dL (70-105); Osmolality,Calculated 289 (280-300); Potassium 4.1 mEq/L (3.5-5.1); Sodium 134 mEq/L (136-145); Thyroid Stimulating Hormone 1.711 mcIU/mL (0.340-5.600); Total Protein 9.1 g/dL (6.4-8.9); Troponin I < 0.03 ng/mL (< 0.04); eGFR For African Americans > 60 (> 60); eGFR For Non-African Americans 56 (> 60)
[2020-07-17] MEDS ORDERED: 0.9 % Sodium Chloride 500 ML IVC ONE (14:39)
[2020-07-17 15:08] LABS: Bilirubin,Urine Negative (Negative); Blood,Urine Negative (Negative); Clarity,Urine Clear (Clear); Color,Urine Yellow (Yellow); Glucose,Urine (UA) Normal (Normal); Ketones,Urine Negative (Negative); Leukocyte Esterase,Urine Negative (Negative); Nitrite,Urine Negative (Negative); PH,Urine 6.5 pH Units (5.0-8.0); Protein,Urine Negative (Neg-Trace); Specific Gravity,Urine 1.029 (1.010-1.025); Urobilinogen,Urine Normal (Normal)
[2020-07-17 15:45] LABS: Amphetamine Screen,Urine Negative ng/mL (Cutoff=1000); Barbiturate Screen,Urine Negative ng/mL (Cutoff=200); Benzodiazepines Screen,Urine Negative ng/mL (Cutoff=200); Cannabinoid Screen,Urine Negative ng/mL (Cutoff = 50); Cocaine Screen,Urine Negative ng/mL (Cutoff= 300); Opiate Screen,Urine Positive ng/mL (Cutoff=300); Phencyclidine Screen,Urine Negative ng/mL (Cutoff=25)
[2020-07-17] MEDS ORDERED: Ondansetron 4 MG/2 ML VIAL IVP PRN (16:05)
[2020-07-17] MEDS ORDERED: Naloxone 0.4 MG/ML INJ IVP PRN (16:05)
[2020-07-17] MEDS ORDERED: Lactulose 200 GM, Sodium Chloride IRRigation 700 ML RC ONE (16:07)
[2020-07-17] MEDS ORDERED: D5% in Water 1,000 ML IVC PRN (16:09)
[2020-07-17] MEDS ORDERED: Dextrose Gel 15 GM/37.5 ML TUBE PO PRN ×2 (16:09)
[2020-07-17] MEDS ORDERED: *HR* Dextrose 50 % in Water (Vial) 50 ML VIAL IVP PRN (16:09)
[2020-07-17] MEDS ORDERED: cefTRIAXone 2,000 MG in Water for inj. (sterile) 20 ML IVP SCH (17:00)
[2020-07-17] MEDS: Vancomycin 1,250 MG/262.5 ML IV.SOLN IVPB SCH (17:50)
[2020-07-17] MEDS: *HR* Heparin 5,000 UNIT/ML VIAL SQ SCH (17:51)
[2020-07-17] MEDS ORDERED: Insulin LISPRO 300 UNITS/3 ML VIAL SUBQ SCH (18:00)
[2020-07-17] MEDS: Lactulose Oral Soln 20 GM/30 ML UDC PO SCH (20:10)
[2020-07-17] MEDS: Insulin LISPRO 300 UNITS/3 ML VIAL SUBQ SCH (20:14)
[2020-07-17] MEDS: Insulin DETEMIR 100 UNIT/ML X5UNITS SUBQ SCH (20:15)
[2020-07-18] MEDS ORDERED: Pregabalin 75 MG CAPSULE PO PRN (03:17)
[2020-07-18 05:13] LABS: Basophils % 1.3 %; Hematocrit 26.9 % (37.5-50.1); Red Cell Distribution Width 15.4 % (11.5-14.5)
[2020-07-18 05:15] LABS: Basophils # 0.1 K/mcL (0.0-0.2); Eosinophils # 0.3 K/mcL (0.0-0.6); Eosinophils % 6.9 %; Hemoglobin 8.7 g/dL (12.9-16.9); Immature Platelets 1.4 % (1.1-6.1); Lymphocytes # 0.6 K/mcL (0.6-4.6); Mean Corpuscular HGB Conc 32.3 g/dL (31.6-35.5); Mean Corpuscular Hemoglobin 28.5 pg (28.0-33.3); Mean Corpuscular Volume 88.2 fL (83.0-100.0); Mean Platelet Volume 9.6 fL (9.4-12.4); Monocytes # 0.3 K/mcL (0.0-1.3); Monocytes % 7.6 %; Red Blood Count 3.05 M/mcL (4.19-5.50); Segmented Neutrophils % 70.2 %; White Blood Count 3.9 K/mcL (4.3-11.1)
[2020-07-18 05:32] LABS: Neutrophils # 2.7 K/mcL (1.6-8.9); Platelet Count 96 K/mcL (140-400); Platelet Estimate Decreased (Normal)
[2020-07-18] MEDS: Vancomycin 1,250 MG/262.5 ML IV.SOLN IVPB SCH (05:35)
[2020-07-18 05:36] LABS: BUN/Creatinine Ratio 18 (6-26); Blood Urea Nitrogen 21 mg/dL (8-23); Calcium 9.1 mg/dL (8.6-10.3); Carbon Dioxide 21 mEq/L (23-29); Chloride 104 mEq/L (98-107); Glucose 174 mg/dL (70-105); Magnesium 1.7 mg/dL (1.6-2.6); Osmolality,Calculated 285 (280-300); Phosphorous 4.2 mg/dL (2.7-4.5); Sodium 134 mEq/L (136-145); eGFR For African Americans > 60 (> 60); eGFR For Non-African Americans > 60 (> 60)
[2020-07-18] MEDS: Lactulose Oral Soln 20 GM/30 ML UDC PO SCH ×3 (07:23→21:34)
[2020-07-18] MEDS: *HR* Heparin 5,000 UNIT/ML VIAL SQ SCH ×2 (07:23→16:29)
[2020-07-18] MEDS: Insulin DETEMIR 100 UNIT/ML X5UNITS SUBQ SCH ×2 (07:24→21:34)
[2020-07-18] MEDS: Insulin LISPRO 300 UNITS/3 ML VIAL SUBQ SCH ×4 (07:25→21:30)
[2020-07-18] MEDS ORDERED: *HR* OxyCODONE/APAP 5/325 TABLET PO PRN (12:13)
[2020-07-18] MEDS: *HR* OxyCODONE Immed Rel 5 MG TABLET PO PRN ×3 (12:57→21:34)
[2020-07-18] MEDS: Sennosides/Docusate Sodium TABLET PO SCH (21:30)
[2020-07-18] MEDS: Furosemide 20 MG TABLET PO SCH (21:30)
[2020-07-19 02:35] LABS: Hematocrit 27.5 % (37.5-50.1); Immature Granulocytes % 0.2 % (0-4)
[2020-07-19 02:37] LABS: Basophils # 0.1 K/mcL (0.0-0.2); Basophils % 1.3 %; Eosinophils # 0.4 K/mcL (0.0-0.6); Eosinophils % 9.1 %; Immature Platelets 1.6 % (1.1-6.1); Lymphocytes # 0.8 K/mcL (0.6-4.6); Lymphocytes % 17.9 %; Mean Corpuscular HGB Conc 32.7 g/dL (31.6-35.5); Mean Corpuscular Hemoglobin 29.7 pg (28.0-33.3); Mean Corpuscular Volume 90.8 fL (83.0-100.0); Mean Platelet Volume 10.2 fL (9.4-12.4); Monocytes # 0.4 K/mcL (0.0-1.3); Neutrophils # 2.9 K/mcL (1.6-8.9); Red Blood Count 3.03 M/mcL (4.19-5.50); Red Cell Distribution Width 15.2 % (11.5-14.5); Segmented Neutrophils % 63.5 %; White Blood Count 4.5 K/mcL (4.3-11.1)
[2020-07-19 02:40] LABS: Platelet Count 94 K/mcL (140-400)
[2020-07-19 02:53] LABS: Alanine Aminotransferase 25 Units/L (7-52); Albumin 3.1 g/dL (3.5-5.7); Albumin/Globulin Ratio 0.6 (1.1-2.2); Alkaline Phosphatase 101 Units/L (34-104); Aspartate Amino Transferase 39 Units/L (13-39); BUN/Creatinine Ratio 19 (6-26); Bilirubin,Direct 0.1 mg/dL (0.0-0.2); Bilirubin,Indirect 0.7 mg/dL (0.0-1.0); Bilirubin,Total 0.8 mg/dL (0.3-1.0); Blood Urea Nitrogen 24 mg/dL (8-23); Calcium 8.9 mg/dL (8.6-10.3); Carbon Dioxide 19 mEq/L (23-29); Chloride 102 mEq/L (98-107); Globulin 5.4 g/dL (2.4-3.5); Glucose 313 mg/dL (70-105); Magnesium 1.8 mg/dL (1.6-2.6); Osmolality,Calculated 290 (280-300); Potassium 3.8 mEq/L (3.5-5.1); Sodium 132 mEq/L (136-145); Total Protein 8.5 g/dL (6.4-8.9); eGFR For African Americans > 60 (> 60); eGFR For Non-African Americans 59 (> 60)
[2020-07-19] MEDS: *HR* OxyCODONE Immed Rel 5 MG TABLET PO PRN ×4 (04:15→17:32)
[2020-07-19] MEDS: *HR* Heparin 5,000 UNIT/ML VIAL SQ SCH ×2 (05:16→17:33)
[2020-07-19 05:37] LABS: Estimated Average Glucose 174 mg/dl; Hemoglobin A1C 7.7 %
[2020-07-19] MEDS: Lactulose Oral Soln 20 GM/30 ML UDC PO SCH ×3 (08:11→21:00)
[2020-07-19] MEDS: Furosemide 20 MG TABLET PO SCH ×2 (08:12→21:21)
[2020-07-19] MEDS: Sennosides/Docusate Sodium TABLET PO SCH ×2 (08:12→21:21)
[2020-07-19] MEDS: Insulin LISPRO 300 UNITS/3 ML VIAL SUBQ SCH ×4 (08:13→21:26)
[2020-07-19] MEDS: Insulin DETEMIR 100 UNIT/ML X5UNITS SUBQ SCH (08:14)
[2020-07-19] MEDS ORDERED: Multivit/Ca/Min/Fe/FA 1 TAB TABLET PO SCH (09:00)
[2020-07-19] MEDS ORDERED: Cyanocobalamin (B-12) 1,000 MCG TABLET PO SCH (09:00)
[2020-07-19] MEDS ORDERED: Nicotine 21 MG PATCH.TD24 TD SCH (09:00)
[2020-07-19] MEDS ORDERED: Folic Acid 1 MG TABLET PO SCH (09:00)
[2020-07-19] MEDS ORDERED: Aspirin Enteric Coated 81 MG Tablet PO SCH (09:00)
[2020-07-19] MEDS ORDERED: Insulin DETEMIR 100 UNIT/ML X5UNITS SUBQ SCH (09:30)
[2020-07-19] MEDS ORDERED: *HR* OxyCODONE Immed Rel 5 MG TABLET PO ONE (21:00)
[2020-07-20] MEDS: *HR* OxyCODONE Immed Rel 5 MG TABLET PO PRN ×2 (00:59→05:03)
[2020-07-20 01:36] LABS: Basophils # 0.1 K/mcL (0.0-0.2); Basophils % 1.2 %; Eosinophils # 0.4 K/mcL (0.0-0.6); Eosinophils % 10.5 %; Hematocrit 27.8 % (37.5-50.1); Hemoglobin 9.1 g/dL (12.9-16.9); Immature Granulocytes % 0.2 % (0-4); Lymphocytes # 0.8 K/mcL (0.6-4.6); Lymphocytes % 18.8 %; Mean Corpuscular HGB Conc 32.7 g/dL (31.6-35.5); Mean Corpuscular Hemoglobin 29.5 pg (28.0-33.3); Mean Corpuscular Volume 90.3 fL (83.0-100.0); Mean Platelet Volume 9.7 fL (9.4-12.4); Monocytes # 0.4 K/mcL (0.0-1.3); Monocytes % 8.6 %; Neutrophils # 2.5 K/mcL (1.6-8.9); Platelet Count 104 K/mcL (140-400); Red Blood Count 3.08 M/mcL (4.19-5.50); Red Cell Distribution Width 15.1 % (11.5-14.5); Segmented Neutrophils % 60.7 %; White Blood Count 4.1 K/mcL (4.3-11.1)
[2020-07-20 01:56] LABS: Alanine Aminotransferase 25 Units/L (7-52); Albumin 3.2 g/dL (3.5-5.7); Albumin/Globulin Ratio 0.6 (1.1-2.2); Alkaline Phosphatase 105 Units/L (34-104); Aspartate Amino Transferase 34 Units/L (13-39); BUN/Creatinine Ratio 19 (6-26); Bilirubin,Direct 0.2 mg/dL (0.0-0.2); Bilirubin,Indirect 0.5 mg/dL (0.0-1.0); Bilirubin,Total 0.7 mg/dL (0.3-1.0); Blood Urea Nitrogen 21 mg/dL (8-23); Calcium 8.8 mg/dL (8.6-10.3); Carbon Dioxide 20 mEq/L (23-29); Chloride 102 mEq/L (98-107); Globulin 5.4 g/dL (2.4-3.5); Glucose 345 mg/dL (70-105); Magnesium 1.8 mg/dL (1.6-2.6); Osmolality,Calculated 287 (280-300); Potassium 3.7 mEq/L (3.5-5.1); Sodium 130 mEq/L (136-145); Total Protein 8.6 g/dL (6.4-8.9); eGFR For African Americans > 60 (> 60); eGFR For Non-African Americans > 60 (> 60)
[2020-07-20] MEDS: *HR* Heparin 5,000 UNIT/ML VIAL SQ SCH (04:58)
[2020-07-20 07:21] VITALS: BP 157/73
[2020-07-20] MEDS ORDERED: carvediloL 6.25 MG TABLET PO SCH (08:00)
[2020-07-20] MEDS ORDERED: Insulin DETEMIR 100 UNIT/ML X5UNITS SUBQ SCH (09:00)
== END 2020-07-20 10:30 | disposition home or self-care (01) ==
LOC: 3ANU 12:09 → EMEROOARM 12:09 → SUATTDRO 16:15 → 3ANU 17:24
PROVIDERS: ADMIT Internal Medicine; ATTEND Pharmacist

== ENCOUNTER 2020-08-24 10:30 | Inpatient (IN) ==
[2020-08-24] MEDS ORDERED: 0.9 % Sodium Chloride 1,000 ML IVC ONE (10:48)
[2020-08-24] MEDS ORDERED: Vancomycin 1,500 MG/265 ML IV.SOLN IVPB ONE (10:48)
[2020-08-24] MEDS ORDERED: Piperacillin/Tazobactam 3.375 GM in Water for inj. (sterile) 20 ML IVP ONE (10:48)
[2020-08-24 11:40] LABS: Basophils # 0.1 K/mcL (0.0-0.2); Basophils % 1.2 %; Eosinophils # 0.2 K/mcL (0.0-0.6); Eosinophils % 3.7 %; Hematocrit 27.1 % (37.5-50.1); Hemoglobin 8.8 g/dL (12.9-16.9); Immature Granulocytes % 0.4 % (0-4); Immature Platelets 2.3 % (1.1-6.1); Lymphocytes # 0.6 K/mcL (0.6-4.6); Lymphocytes % 12.9 %; Mean Corpuscular HGB Conc 32.5 g/dL (31.6-35.5); Mean Corpuscular Volume 89.4 fL (83.0-100.0); Mean Platelet Volume 9.7 fL (9.4-12.4); Monocytes # 0.4 K/mcL (0.0-1.3); Monocytes % 8.3 %; Neutrophils # 3.5 K/mcL (1.6-8.9); Nucleated Red Blood Cells 0.4 /100 WBC (0); Red Blood Count 3.03 M/mcL (4.19-5.50); Red Cell Distribution Width 15.2 % (11.5-14.5); Segmented Neutrophils % 73.5 %; White Blood Count 4.8 K/mcL (4.3-11.1)
[2020-08-24 11:41] LABS: Platelet Count 98 K/mcL (140-400)
[2020-08-24 11:57] LABS: Alanine Aminotransferase 28 Units/L (7-52); Albumin 3.1 g/dL (3.5-5.7); Albumin/Globulin Ratio 0.6 (1.1-2.2); Alkaline Phosphatase 160 Units/L (34-104); Aspartate Amino Transferase 26 Units/L (13-39); BUN/Creatinine Ratio 15 (6-26); Bilirubin,Direct 0.3 mg/dL (0.0-0.2); Bilirubin,Indirect 0.5 mg/dL (0.0-1.0); Bilirubin,Total 0.8 mg/dL (0.3-1.0); Blood Urea Nitrogen 21 mg/dL (8-23); Carbon Dioxide 19 mEq/L (23-29); Chloride 100 mEq/L (98-107); Globulin 5.1 g/dL (2.4-3.5); Glucose 299 mg/dL (70-105); Magnesium 1.6 mg/dL (1.6-2.6); Osmolality,Calculated 278 (280-300); Phosphorous 3.4 mg/dL (2.7-4.5); Potassium 4.6 mEq/L (3.5-5.1); Sodium 127 mEq/L (136-145); Total Protein 8.2 g/dL (6.4-8.9); Troponin I < 0.03 ng/mL (< 0.04); eGFR For African Americans > 60 (> 60); eGFR For Non-African Americans 50 (> 60)
[2020-08-24 12:07] LABS: INR 1.4; Prothrombin Time 15.5 Seconds (9.4-12.1)
[2020-08-24 12:10] LABS: Activated Partial Thrombo Time 27.9 Seconds (26.0-36.0)
[2020-08-24] MEDS ORDERED: *HR* OxyCODONE Immed Rel 5 MG TABLET PO PRN (12:49)
[2020-08-24] MEDS ORDERED: Acetaminophen 325 MG TABLET PO PRN (12:49)
[2020-08-24] MEDS ORDERED: Naloxone 0.4 MG/ML INJ IVP PRN (12:49)
[2020-08-24] MEDS ORDERED: *HR* Dextrose 50 % in Water (Vial) 50 ML VIAL IVP PRN (12:49)
[2020-08-24] MEDS ORDERED: D5% in Water 1,000 ML IVC PRN (12:49)
[2020-08-24] MEDS ORDERED: Dextrose Gel 15 GM/37.5 ML TUBE PO PRN ×2 (12:49)
[2020-08-24] MEDS ORDERED: Ondansetron 4 MG/2 ML VIAL IVP PRN (12:49)
[2020-08-24] MEDS ORDERED: *HR* OxyCODONE/APAP 5/325 TABLET PO PRN (12:58)
[2020-08-24] MEDS ORDERED: 0.9 % Sodium Chloride 1,000 ML IVC SCH (13:00)
[2020-08-24 13:05] LABS: Bilirubin,Urine Negative (Negative); Blood,Urine Negative (Negative); Clarity,Urine Clear (Clear); Color,Urine Light-Yellow (Yellow); Glucose,Urine (UA) Normal (Normal); Ketones,Urine Negative (Negative); Leukocyte Esterase,Urine Negative (Negative); Nitrite,Urine Negative (Negative); Protein,Urine Negative (Neg-Trace); Specific Gravity,Urine 1.009 (1.010-1.025); Urobilinogen,Urine Normal (Normal)
[2020-08-24 13:12] LABS: C-Reactive Protein 118 mg/L (Less than 10)
[2020-08-24] MEDS ORDERED: NON-FORMULARY MEDICATION 1 EACH EACH (Oxycodone Hcl 10 MG) PO PRN (13:45)
[2020-08-24] MEDS ORDERED: Lactulose Oral Soln 20 GM/30 ML UDC PO SCH (15:00)
[2020-08-24] MEDS: *HR* Heparin 5,000 UNIT/ML VIAL SQ SCH (17:53)
[2020-08-24] MEDS: Lactulose Oral Soln 20 GM/30 ML UDC PO SCH ×2 (17:53→21:09)
[2020-08-24] MEDS: Piperacillin/Tazobactam 3.375 GM in 0.9 % Sodium Chloride Mini Bag 100 ML IVPB SCH (17:54)
[2020-08-24] MEDS: carvediloL 6.25 MG TABLET PO SCH (17:55)
[2020-08-24] MEDS: Insulin LISPRO 300 UNITS/3 ML VIAL SUBQ SCH ×2 (17:55→21:02)
[2020-08-24] MEDS: Furosemide 40 MG TABLET PO SCH (19:32)
[2020-08-24] MEDS: *HR* OxyCODONE Immed Rel 5 MG TABLET PO PRN (19:32)
[2020-08-24] MEDS: Pregabalin 75 MG CAPSULE PO SCH (21:02)
[2020-08-24] MEDS: Morphine Sulfate ER (12 HR) 30 MG TABLET.ER PO SCH (21:03)
[2020-08-24] MEDS: Insulin DETEMIR 100 UNIT/ML X5UNITS SUBQ SCH (21:03)
[2020-08-25] MEDS: Piperacillin/Tazobactam 3.375 GM in 0.9 % Sodium Chloride Mini Bag 100 ML IVPB SCH ×4 (00:04→23:41)
[2020-08-25] MEDS: Vancomycin 1,500 MG/265 ML IV.SOLN IVPB SCH ×2 (01:33→12:40)
[2020-08-25] MEDS: *HR* Heparin 5,000 UNIT/ML VIAL SQ SCH ×2 (05:21→17:28)
[2020-08-25] MEDS: *HR* OxyCODONE Immed Rel 5 MG TABLET PO PRN ×2 (05:35→17:27)
[2020-08-25 05:54] LABS: Immature Granulocytes % 0.3 % (0-4); Monocytes % 9.9 %; Red Cell Distribution Width 15.4 % (11.5-14.5)
[2020-08-25 05:57] LABS: Basophils # 0.1 K/mcL (0.0-0.2); Basophils % 1.3 %; Eosinophils # 0.2 K/mcL (0.0-0.6); Eosinophils % 5.6 %; Hematocrit 27.5 % (37.5-50.1); Hemoglobin 8.7 g/dL (12.9-16.9); Immature Platelets 1.4 % (1.1-6.1); Lymphocytes # 0.9 K/mcL (0.6-4.6); Lymphocytes % 23.2 %; Mean Corpuscular HGB Conc 31.6 g/dL (31.6-35.5); Mean Corpuscular Hemoglobin 29.3 pg (28.0-33.3); Mean Corpuscular Volume 92.6 fL (83.0-100.0); Mean Platelet Volume 9.7 fL (9.4-12.4); Monocytes # 0.4 K/mcL (0.0-1.3); Platelet Count 107 K/mcL (140-400); Red Blood Count 2.97 M/mcL (4.19-5.50); Segmented Neutrophils % 59.7 %; White Blood Count 3.9 K/mcL (4.3-11.1)
[2020-08-25 06:01] LABS: Neutrophils # 2.3 K/mcL (1.6-8.9)
[2020-08-25 06:17] LABS: BUN/Creatinine Ratio 16 (6-26); Blood Urea Nitrogen 23 mg/dL (8-23); Calcium 8.9 mg/dL (8.6-10.3); Carbon Dioxide 20 mEq/L (23-29); Chloride 104 mEq/L (98-107); Glucose 109 mg/dL (70-105); Osmolality,Calculated 278 (280-300); Potassium 4.1 mEq/L (3.5-5.1); Sodium 132 mEq/L (136-145); eGFR For African Americans > 60 (> 60); eGFR For Non-African Americans 50 (> 60)
[2020-08-25] MEDS: Insulin LISPRO 300 UNITS/3 ML VIAL SUBQ SCH ×4 (09:15→20:32)
[2020-08-25] MEDS: carvediloL 6.25 MG TABLET PO SCH ×2 (09:31→17:28)
[2020-08-25] MEDS: Folic Acid 1 MG TABLET PO SCH (09:31)
[2020-08-25] MEDS: Furosemide 40 MG TABLET PO SCH (09:31)
[2020-08-25] MEDS: Pregabalin 75 MG CAPSULE PO SCH ×2 (09:31→20:31)
[2020-08-25] MEDS: Aspirin Enteric Coated 81 MG Tablet PO SCH (09:31)
[2020-08-25] MEDS: Lactulose Oral Soln 20 GM/30 ML UDC PO SCH ×4 (09:32→20:32)
[2020-08-25] MEDS: Multivit/Ca/Min/Fe/FA 1 TAB TABLET PO SCH (09:32)
[2020-08-25] MEDS: Nicotine 21 MG PATCH.TD24 TD SCH (09:33)
[2020-08-25] MEDS: Cyanocobalamin (B-12) 1,000 MCG TABLET PO SCH (09:33)
[2020-08-25] MEDS: Insulin DETEMIR 100 UNIT/ML X5UNITS SUBQ SCH (20:31)
[2020-08-25] MEDS: Morphine Sulfate ER (12 HR) 30 MG TABLET.ER PO SCH (20:31)
[2020-08-26 01:42] LABS: Eosinophils # 0.2 K/mcL (0.0-0.6); Eosinophils % 5.5 %; Hematocrit 25.1 % (37.5-50.1); Hemoglobin 8.3 g/dL (12.9-16.9); Immature Granulocytes % 0.2 % (0-4); Lymphocytes # 0.9 K/mcL (0.6-4.6); Lymphocytes % 21.6 %; Mean Corpuscular HGB Conc 33.1 g/dL (31.6-35.5); Mean Corpuscular Volume 90.6 fL (83.0-100.0); Mean Platelet Volume 9.9 fL (9.4-12.4); Monocytes # 0.3 K/mcL (0.0-1.3); Monocytes % 8.5 %; Neutrophils # 2.5 K/mcL (1.6-8.9); Platelet Count 113 K/mcL (140-400); Red Blood Count 2.77 M/mcL (4.19-5.50); Red Cell Distribution Width 15.6 % (11.5-14.5); Segmented Neutrophils % 63.2 %
[2020-08-26 01:57] LABS: Calcium 8.8 mg/dL (8.6-10.3); Potassium 4.7 mEq/L (3.5-5.1)
[2020-08-26] MEDS: Vancomycin 1,500 MG/265 ML IV.SOLN IVPB SCH (02:00)
[2020-08-26] MEDS: *HR* Heparin 5,000 UNIT/ML VIAL SQ SCH ×2 (05:00→17:37)
[2020-08-26] MEDS: Insulin LISPRO 300 UNITS/3 ML VIAL SUBQ SCH ×4 (09:11→20:18)
[2020-08-26] MEDS: Multivit/Ca/Min/Fe/FA 1 TAB TABLET PO SCH (09:12)
[2020-08-26] MEDS: Pregabalin 75 MG CAPSULE PO SCH ×2 (09:12→20:17)
[2020-08-26] MEDS: Folic Acid 1 MG TABLET PO SCH (09:12)
[2020-08-26] MEDS: Cyanocobalamin (B-12) 1,000 MCG TABLET PO SCH (09:12)
[2020-08-26] MEDS: carvediloL 6.25 MG TABLET PO SCH ×2 (09:12→17:37)
[2020-08-26] MEDS: Furosemide 40 MG TABLET PO SCH (09:12)
[2020-08-26] MEDS: Lactulose Oral Soln 20 GM/30 ML UDC PO SCH ×4 (09:12→20:17)
[2020-08-26] MEDS: Aspirin Enteric Coated 81 MG Tablet PO SCH (09:12)
[2020-08-26] MEDS: Piperacillin/Tazobactam 3.375 GM in 0.9 % Sodium Chloride Mini Bag 100 ML IVPB SCH ×3 (09:13→23:36)
[2020-08-26] MEDS: Nicotine 21 MG PATCH.TD24 TD SCH (09:13)
[2020-08-26] MEDS: *HR* OxyCODONE Immed Rel 5 MG TABLET PO PRN ×2 (09:16→17:42)
[2020-08-26] MEDS ORDERED: Vancomycin 2,000 MG/520 ML IV.SOLN IVPB SCH (19:00)
[2020-08-26] MEDS: Insulin DETEMIR 100 UNIT/ML X5UNITS SUBQ SCH (20:17)
[2020-08-26] MEDS: Morphine Sulfate ER (12 HR) 30 MG TABLET.ER PO SCH (20:17)
[2020-08-27] MEDS: *HR* Heparin 5,000 UNIT/ML VIAL SQ SCH ×2 (05:41→18:03)
[2020-08-27] MEDS ORDERED: 0.9 % Sodium Chloride 1,000 ML IVC SCH ×2 (08:00→19:56)
[2020-08-27] MEDS: Folic Acid 1 MG TABLET PO SCH (08:53)
[2020-08-27] MEDS: *HR* OxyCODONE Immed Rel 5 MG TABLET PO PRN ×2 (08:53→13:14)
[2020-08-27] MEDS: Furosemide 40 MG TABLET PO SCH (08:54)
[2020-08-27] MEDS: Pregabalin 75 MG CAPSULE PO SCH ×2 (08:54→21:52)
[2020-08-27] MEDS: Lactulose Oral Soln 20 GM/30 ML UDC PO SCH ×4 (08:54→21:52)
[2020-08-27] MEDS: Cyanocobalamin (B-12) 1,000 MCG TABLET PO SCH (08:54)
[2020-08-27] MEDS: Aspirin Enteric Coated 81 MG Tablet PO SCH (08:54)
[2020-08-27] MEDS: Multivit/Ca/Min/Fe/FA 1 TAB TABLET PO SCH (08:54)
[2020-08-27] MEDS: Insulin LISPRO 300 UNITS/3 ML VIAL SUBQ SCH ×3 (08:55→18:02)
[2020-08-27] MEDS: carvediloL 6.25 MG TABLET PO SCH ×2 (08:55→18:02)
[2020-08-27] MEDS: Piperacillin/Tazobactam 3.375 GM in 0.9 % Sodium Chloride Mini Bag 100 ML IVPB SCH (08:56)
[2020-08-27] MEDS: Nicotine 21 MG PATCH.TD24 TD SCH (09:19)
[2020-08-27] MEDS ORDERED: cefTRIAXone 2,000 MG in 0.9 % Sodium Chloride Mini Bag 100 ML IVPB SCH (13:00)
[2020-08-27 14:08] LABS: Calcium 8.8 mg/dL (8.6-10.3); Potassium 4.5 mEq/L (3.5-5.1)
[2020-08-27] MEDS ORDERED: metroNIDAZOLE 500 MG TABLET PO SCH (15:00)
[2020-08-27] MEDS ORDERED: ROPIVACAINE/PF/NS 0.25% 1 EACH SYRINGE INTRAART ONE (17:20)
[2020-08-27] MEDS ORDERED: *HR* HYDROmorphone PF 0.5 MG/0.5 ML SYRINGE IVP PRN (17:24)
[2020-08-27] MEDS ORDERED: Ondansetron 4 MG/2 ML VIAL IVP PRN ×2 (17:24→19:56)
[2020-08-27] MEDS ORDERED: Famotidine 20 MG/2 ML VIAL ONE (17:27)
[2020-08-27] MEDS ORDERED: Metoclopramide 10 MG/2 ML VIAL ONE (17:27)
[2020-08-27] MEDS ORDERED: *HR* Propofol 200 MG/20 ML VIAL IVP ONE (17:34)
[2020-08-27] MEDS ORDERED: Lidocaine -MPF 2% 2 ML VIAL ONE (17:34)
[2020-08-27] MEDS ORDERED: Dexamethasone 4 MG/ML VIAL ONE (17:34)
[2020-08-27] MEDS ORDERED: *HR* FentaNYL (PF) 100 MCG/2 ML VIAL ONE (17:47)
[2020-08-27] MEDS ORDERED: Vancomycin 1,500 MG/265 ML IV.SOLN IVPB SCH (19:00)
[2020-08-27] MEDS ORDERED: *HR* Dextrose 50 % in Water (Vial) 50 ML VIAL IVP PRN (19:56)
[2020-08-27] MEDS ORDERED: Acetaminophen 325 MG TABLET PO PRN (19:56)
[2020-08-27] MEDS ORDERED: Naloxone 0.4 MG/ML INJ IVP PRN (19:56)
[2020-08-27] MEDS ORDERED: D5% in Water 1,000 ML IVC PRN (19:56)
[2020-08-27] MEDS ORDERED: Dextrose Gel 15 GM/37.5 ML TUBE PO PRN ×2 (19:56)
[2020-08-27] MEDS ORDERED: Insulin DETEMIR 100 UNIT/ML X5UNITS SUBQ SCH (21:00)
[2020-08-27] MEDS ORDERED: Insulin LISPRO 300 UNITS/3 ML VIAL SUBQ SCH (21:00)
[2020-08-27] MEDS: metroNIDAZOLE 500 MG TABLET PO SCH (21:53)
[2020-08-27] MEDS: Morphine Sulfate ER (12 HR) 30 MG TABLET.ER PO SCH (21:57)
[2020-08-28 06:05] LABS: Basophils % 0.5 %; Eosinophils % 0.5 %; Hematocrit 23.2 % (37.5-50.1); Hemoglobin 7.5 g/dL (12.9-16.9); Immature Granulocytes % 0.2 % (0-4); Lymphocytes # 0.5 K/mcL (0.6-4.6); Lymphocytes % 12.7 %; Mean Corpuscular HGB Conc 32.3 g/dL (31.6-35.5); Mean Corpuscular Volume 89.6 fL (83.0-100.0); Mean Platelet Volume 9.7 fL (9.4-12.4); Monocytes # 0.3 K/mcL (0.0-1.3); Monocytes % 6.2 %; Neutrophils # 3.2 K/mcL (1.6-8.9); Platelet Count 102 K/mcL (140-400); Red Blood Count 2.59 M/mcL (4.19-5.50); Red Cell Distribution Width 15.1 % (11.5-14.5); Segmented Neutrophils % 79.9 %
[2020-08-28] MEDS: *HR* Heparin 5,000 UNIT/ML VIAL SQ SCH ×2 (06:09→17:19)
[2020-08-28 06:31] LABS: BUN/Creatinine Ratio 21 (6-26); Blood Urea Nitrogen 30 mg/dL (8-23); Calcium 8.3 mg/dL (8.6-10.3); Carbon Dioxide 20 mEq/L (23-29); Chloride 104 mEq/L (98-107); Glucose 368 mg/dL (70-105); Osmolality,Calculated 289 (280-300); Potassium 5.2 mEq/L (3.5-5.1); Sodium 129 mEq/L (136-145); eGFR For African Americans > 60 (> 60); eGFR For Non-African Americans 50 (> 60)
[2020-08-28] MEDS: *HR* OxyCODONE Immed Rel 5 MG TABLET PO PRN ×2 (08:42→17:18)
[2020-08-28] MEDS: carvediloL 6.25 MG TABLET PO SCH ×2 (08:43→17:18)
[2020-08-28] MEDS: Aspirin Enteric Coated 81 MG Tablet PO SCH (08:43)
[2020-08-28] MEDS: Pregabalin 75 MG CAPSULE PO SCH ×2 (08:43→21:35)
[2020-08-28] MEDS: Furosemide 40 MG TABLET PO SCH (08:43)
[2020-08-28] MEDS: metroNIDAZOLE 500 MG TABLET PO SCH ×3 (08:43→21:35)
[2020-08-28] MEDS: Insulin LISPRO 300 UNITS/3 ML VIAL SUBQ SCH ×3 (08:44→17:19)
[2020-08-28] MEDS: Cyanocobalamin (B-12) 1,000 MCG TABLET PO SCH (08:44)
[2020-08-28] MEDS: Multivit/Ca/Min/Fe/FA 1 TAB TABLET PO SCH (08:44)
[2020-08-28] MEDS: Folic Acid 1 MG TABLET PO SCH (08:44)
[2020-08-28] MEDS: Nicotine 21 MG PATCH.TD24 TD SCH (08:45)
[2020-08-28] MEDS: Lactulose Oral Soln 20 GM/30 ML UDC PO SCH ×4 (08:45→21:36)
[2020-08-28] MEDS: 0.9 % Sodium Chloride 1,000 ML IVC SCH (12:09)
[2020-08-28] MEDS: cefTRIAXone 2,000 MG in 0.9 % Sodium Chloride Mini Bag 100 ML IVPB SCH (12:11)
[2020-08-28] MEDS ORDERED: Insulin LISPRO 300 UNITS/3 ML VIAL SUBQ SCH (21:00)
[2020-08-28] MEDS: Morphine Sulfate ER (12 HR) 30 MG TABLET.ER PO SCH (21:35)
[2020-08-28] MEDS: Insulin DETEMIR 100 UNIT/ML X5UNITS SUBQ SCH (21:40)
[2020-08-29] MEDS: 0.9 % Sodium Chloride 1,000 ML IVC SCH (02:31)
[2020-08-29 04:33] LABS: Basophils % 0.6 %; Eosinophils # 0.2 K/mcL (0.0-0.6); Eosinophils % 4.5 %; Hematocrit 24.2 % (37.5-50.1); Hemoglobin 7.6 g/dL (12.9-16.9); Immature Granulocytes % 0.6 % (0-4); Lymphocytes # 0.9 K/mcL (0.6-4.6); Lymphocytes % 26.1 %; Mean Corpuscular HGB Conc 31.4 g/dL (31.6-35.5); Mean Corpuscular Hemoglobin 28.5 pg (28.0-33.3); Mean Corpuscular Volume 90.6 fL (83.0-100.0); Mean Platelet Volume 9.4 fL (9.4-12.4); Monocytes # 0.3 K/mcL (0.0-1.3); Monocytes % 8.1 %; Neutrophils # 2.1 K/mcL (1.6-8.9); Platelet Count 110 K/mcL (140-400); Red Blood Count 2.67 M/mcL (4.19-5.50); Red Cell Distribution Width 15.4 % (11.5-14.5); Segmented Neutrophils % 60.1 %; White Blood Count 3.6 K/mcL (4.3-11.1)
[2020-08-29 04:50] LABS: BUN/Creatinine Ratio 21 (6-26); Blood Urea Nitrogen 27 mg/dL (8-23); Calcium 8.4 mg/dL (8.6-10.3); Carbon Dioxide 21 mEq/L (23-29); Chloride 109 mEq/L (98-107); Glucose 168 mg/dL (70-105); Osmolality,Calculated 289 (280-300); Potassium 4.3 mEq/L (3.5-5.1); Sodium 135 mEq/L (136-145); eGFR For African Americans > 60 (> 60); eGFR For Non-African Americans 56 (> 60)
[2020-08-29] MEDS: *HR* Heparin 5,000 UNIT/ML VIAL SQ SCH ×2 (05:54→17:17)
[2020-08-29] MEDS: carvediloL 6.25 MG TABLET PO SCH ×2 (10:27→17:17)
[2020-08-29] MEDS: Lactulose Oral Soln 20 GM/30 ML UDC PO SCH ×4 (10:27→21:23)
[2020-08-29] MEDS: Insulin LISPRO 300 UNITS/3 ML VIAL SUBQ SCH ×4 (10:27→17:16)
[2020-08-29] MEDS: Folic Acid 1 MG TABLET PO SCH (10:28)
[2020-08-29] MEDS: Cyanocobalamin (B-12) 1,000 MCG TABLET PO SCH (10:28)
[2020-08-29] MEDS: Aspirin Enteric Coated 81 MG Tablet PO SCH (10:28)
[2020-08-29] MEDS: Pregabalin 75 MG CAPSULE PO SCH ×2 (10:28→21:22)
[2020-08-29] MEDS: Furosemide 40 MG TABLET PO SCH (10:28)
[2020-08-29] MEDS: Nicotine 21 MG PATCH.TD24 TD SCH (10:29)
[2020-08-29] MEDS: Multivit/Ca/Min/Fe/FA 1 TAB TABLET PO SCH (10:29)
[2020-08-29] MEDS: metroNIDAZOLE 500 MG TABLET PO SCH ×3 (10:29→21:23)
[2020-08-29] MEDS: *HR* OxyCODONE Immed Rel 5 MG TABLET PO PRN ×2 (10:32→17:22)
[2020-08-29] MEDS: cefTRIAXone 2,000 MG in 0.9 % Sodium Chloride Mini Bag 100 ML IVPB SCH (13:02)
[2020-08-29] MEDS: Morphine Sulfate ER (12 HR) 30 MG TABLET.ER PO SCH (21:23)
[2020-08-29] MEDS: Insulin DETEMIR 100 UNIT/ML X5UNITS SUBQ SCH (21:23)
[2020-08-30] MEDS: *HR* Heparin 5,000 UNIT/ML VIAL SQ SCH (05:52)
[2020-08-30 06:17] LABS: Eosinophils # 0.2 K/mcL (0.0-0.6); Eosinophils % 5.2 %; Hematocrit 23.8 % (37.5-50.1); Hemoglobin 7.7 g/dL (12.9-16.9); Immature Granulocytes % 0.3 % (0-4); Lymphocytes % 25.9 %; Mean Corpuscular HGB Conc 32.4 g/dL (31.6-35.5); Mean Corpuscular Hemoglobin 30.1 pg (28.0-33.3); Mean Platelet Volume 9.7 fL (9.4-12.4); Monocytes # 0.2 K/mcL (0.0-1.3); Red Blood Count 2.56 M/mcL (4.19-5.50); Red Cell Distribution Width 15.7 % (11.5-14.5); Segmented Neutrophils % 60.6 %; White Blood Count 2.9 K/mcL (4.3-11.1)
[2020-08-30 06:18] LABS: Lymphocytes # 0.8 K/mcL (0.6-4.6); Neutrophils # 1.8 K/mcL (1.6-8.9); Platelet Count 89 K/mcL (140-400)
[2020-08-30 06:39] LABS: BUN/Creatinine Ratio 21 (6-26); Blood Urea Nitrogen 25 mg/dL (8-23); Calcium 8.6 mg/dL (8.6-10.3); Carbon Dioxide 19 mEq/L (23-29); Chloride 107 mEq/L (98-107); Glucose 223 mg/dL (70-105); Osmolality,Calculated 287 (280-300); Potassium 4.4 mEq/L (3.5-5.1); Sodium 133 mEq/L (136-145); eGFR For African Americans > 60 (> 60); eGFR For Non-African Americans > 60 (> 60)
[2020-08-30] MEDS: Lactulose Oral Soln 20 GM/30 ML UDC PO SCH ×2 (08:57→13:28)
[2020-08-30] MEDS: Insulin LISPRO 300 UNITS/3 ML VIAL SUBQ SCH ×4 (08:57→13:29)
[2020-08-30] MEDS: Furosemide 40 MG TABLET PO SCH (08:58)
[2020-08-30] MEDS: *HR* OxyCODONE Immed Rel 5 MG TABLET PO PRN (08:58)
[2020-08-30] MEDS: Cyanocobalamin (B-12) 1,000 MCG TABLET PO SCH (08:58)
[2020-08-30] MEDS: metroNIDAZOLE 500 MG TABLET PO SCH (08:59)
[2020-08-30] MEDS: Aspirin Enteric Coated 81 MG Tablet PO SCH (08:59)
[2020-08-30] MEDS: Folic Acid 1 MG TABLET PO SCH (08:59)
[2020-08-30] MEDS: Multivit/Ca/Min/Fe/FA 1 TAB TABLET PO SCH (09:00)
[2020-08-30] MEDS: carvediloL 6.25 MG TABLET PO SCH (09:00)
[2020-08-30] MEDS: Nicotine 21 MG PATCH.TD24 TD SCH (09:00)
[2020-08-30] MEDS: Pregabalin 75 MG CAPSULE PO SCH (09:00)
[2020-08-30 11:00] VITALS: BP 117/68
[2020-08-30] MEDS: cefTRIAXone 2,000 MG in 0.9 % Sodium Chloride Mini Bag 100 ML IVPB SCH (13:29)
== END 2020-08-30 16:41 | disposition home or self-care (01) | DRG 623 ==
LOC: 3ANU 10:30 → EMEROOARM 10:30 → 3ANU 13:50 → SUATTDRO 08-25 17:48
PROVIDERS: ADMIT Internal Medicine; ATTEND Internal Medicine